=== PATIENT | female | born 1965 | race Caucasian/White ===

== ENCOUNTER → 2016-11-14 | Outpatient (CLI) | payer BC ==
[~2016-11-14] MED LIST: ADVIN50050 INH; ALBU1AER9 INH; ALL180 PO; ASPI1CHW12 PO; ATOR-26 PO; ATRIN INH; CYM/30 PO; DULO60CA44 PO; FURO-85 PO; HYDC25 PO; IBUP-1050 PO; MOME50SP5; OXYC-57 PO; PANT40TA PO; POTA-335 PO; SIMV20TA2 PO; SYMIN160 INH; VENTILIN INH; WARF5TAB7 PO
[2016-11-14 17:39] LABS: BASO % 0.4 %; BASO ABS # 0.03 K/uL (0-0.2); COMPLETE YES; EOS % 1.7 %; HEMATOCRIT 40.3 % (37-47); IG% 0.4 %; LYMPH % 9.2 %; LYMPH ABS # 0.74 K/uL (1.2-3.4); MEAN CELL VOLUME 85.9 fL (80-100); MEAN CORPUSCULAR HEMOGLOBIN 28.1 pg (25-34); MEAN CORPUSCULAR HGB CONC 32.8 g/dl (32-36); MONO % 12.5 %; NEUT % 75.8 %; PLATELET COUNT 317 K/uL (130-400); RED BLOOD COUNT 4.69 M/uL (4.2-5.4); WHITE BLOOD COUNT 8.01 K/uL (4.8-10.8)
[2016-11-14 17:48] LABS: ALT/SGPT 45 U/L (12-78); AST/SGOT 41 U/L (15-37); BLOOD UREA NITROGEN 13 mg/dl (7-18); BUN/CREATININE RATIO 14.9 (10-20); CALCIUM 8.2 mg/dl (8.5-10.1); CARBON DIOXIDE 29 mmol/L (21-32); CHLORIDE 103 mmol/L (98-107); CREATININE 0.87 mg/dl (0.60-1.20); GLUCOSE 97 mg/dl (70-99); POTASSIUM 3.9 mmol/L (3.5-5.1); SODIUM 139 mmol/L (136-145)
[2016-11-14 17:56] LABS: ALKALINE PHOSPHATASE 133 U/L (45-117); CHOLESTEROL 155 mg/dl (0-200); HDL CHOLESTEROL 51 mg/dl; LDL CHOLESTEROL CALCULATED 82 mg/dl; THYROID STIMULATING HORMONE 0.561 uIu/ml (0.300-4.500); TRIGLYCERIDES 110 mg/dl (0-150); VERY LOW DENSITY LIPOPROT CALC 22 mg/dl
[2016-11-14 18:18] LABS: ESTIMATED AVERAGE GLUCOSE 120 mg/dl; HA1C FLAG Normal (Normal)
== END | disposition home or self-care (01) ==
LOC: C.LABBFT 15:18
PROVIDERS: ATTEND Internal Medicine
DX: R73.01 Impaired fasting glucose (principal); R00.0 Tachycardia, unspecified

== ENCOUNTER → 2016-11-23 | Outpatient (CLI) | payer BC ==
--- NOTE | 2016-11-23 09:32 | DIAGNOSTIC IMAGING REPORT ---
CHEST 2 VIEWS ROUTINE CLINICAL HISTORY: J44.1 COPD with acute [id number] dyspnea COMPARISON STUDY: 05/13/2015 FINDINGS: Prior median sternotomy. Replacement. Diaphragms smooth. Lungs are clear. IMPRESSION: No acute process. Electronically signed by: Chris Larson M.D. 11/23/2016 9:30 AM Dictated Date/Time: 11/23/2016 9:29 AM
== END | disposition home or self-care (01) ==
LOC: C.RAD1850 09:09
PROVIDERS: ATTEND Nurse Practitioner
DX: J44.1 Chronic obstructive pulmonary disease with (acute) exacerbation (principal)

== ENCOUNTER → 2016-11-30 | Outpatient (CLI) | payer BC | END | disposition home or self-care (01) | LOC: C.LABBFT 13:18 | PROVIDERS: ATTEND Physician Assistant Medical | DX: E78.5 Hyperlipidemia, unspecified (principal) ==

== ENCOUNTER → 2017-01-11 | Outpatient (CLI) | payer BC ==
--- NOTE | 2017-01-11 13:52 | DIAGNOSTIC IMAGING REPORT ---
LUMBAR SPINE 5 VIEWS CLINICAL HISTORY: Chronic low back pain. FINDINGS: Five views of the lumbar spine are compared to study dated 11/10/2014. The skeletal structures are osteopenic. There is no radiographic evidence of fracture or malalignment. Vertebral body height and alignment are maintained throughout the lumbar spine. The transverse and spinous processes appear intact. There is no evidence of spondylolysis. Tiny anterior osteophytes are noted in the lower lumbar region. Mild facet arthropathy is observed. Mild degenerative disc space narrowing is seen at L4-L5 and L5-S1. The remaining disc spaces are normal. The visualized bony pelvis appears intact. Mild sclerotic change is noted in the sacroiliac joints. There is advanced atherosclerotic calcification of the abdominal aorta. Cholecystectomy clips are identified. There is a nonobstructed abdominal bowel gas pattern noting moderate colonic fecal retention. IMPRESSION: 1. No acute bony abnormality is seen involving the lumbosacral spine. 2. Osteopenia and mild spondylotic change as above. Dictated: 01/11/2017 1:42 PM Transcribed: 01/11/2017 1:52 PM YOHANA_[email or web address] Electronically signed by: Deepak Arvizu M.D. 01/11/2017 2:09 PM Dictated Date/Time: 01/11/2017 1:42 PM
== END | disposition home or self-care (01) ==
LOC: C.RAD1850 12:46
PROVIDERS: ATTEND Physician Assistant Medical
DX: M54.5 Low back pain (principal)

== ENCOUNTER → 2017-01-24 | Outpatient (CLI) | payer BC | END | disposition home or self-care (01) | LOC: C.LABBFT 12:46 | PROVIDERS: ATTEND Physician Assistant Medical | DX: M54.5 Low back pain (principal); M79.1 Myalgia ==

== ENCOUNTER → 2017-02-09 | Outpatient (CLI) | payer BC ==
--- NOTE | 2017-02-09 08:40 | DIAGNOSTIC IMAGING REPORT ---
ULTRASOUND EXAM AAA SCREEN CLINICAL HISTORY: I70.0 Abdominal aortic [id number] COMPARISON STUDY: No previous studies for comparison. FINDINGS: There is no evidence of abdominal aortic aneurysm. The maxillary diameter is 2 cm. There is no evidence of iliac artery aneurysm. There is mild elevation of the proximal iliac artery velocities. IMPRESSION: No evidence of abdominal aortic aneurysm. Electronically signed by: Wood Sherman M.D. 02/09/2017 8:39 AM Dictated Date/Time: 02/09/2017 8:37 AM
== END | disposition home or self-care (01) ==
LOC: C.ULTR 07:49
PROVIDERS: ATTEND Internal Medicine
DX: I70.0 Atherosclerosis of aorta (principal)

== ENCOUNTER → 2017-03-02 | Outpatient (CLI) | payer BC ==
[~2017-03-02] MED LIST changes: -CYM/30 PO
--- NOTE | 2017-03-02 14:24 | DIAGNOSTIC IMAGING REPORT ---
CT OF THE LUMBAR SPINE WITHOUT CONTRAST CLINICAL HISTORY: Low back pain. COMPARISON STUDY: Lumbar spine radiographs January 11, 2017. TECHNIQUE: Axial images of the lumbar spine were obtained without IV contrast. Sagittal and coronal reconstructions were viewed. FINDINGS: For purposes of numbering on this exam, the L5-S1 disc space is assigned to axial image [id number]. Vertebral body heights are maintained. There is no fracture or suspicious lesion by CT. The paravertebral soft tissues are unremarkable. There is moderate atherosclerotic plaque of the abdominal aorta without aneurysmal dilatation. The central canal and neural foramen are suboptimally assessed by CT. L1-L2: The central canal and neural foramen are patent. L2-L3: The central canal and neural foramen are patent. L3-L4: The central canal and neural foramen are patent. L4-L5: There is a mild disc bulge. There is mild narrowing of the central canal. The neural foramen are patent. There is moderate facet arthrosis. L5-S1: There is minimal disc bulge. Central canal is patent. There is moderate facet arthrosis. The neural foramen are patent. IMPRESSION: 1. No acute lumbar spine fracture. 2. Mild multilevel degenerative disc disease and moderate multilevel facet arthrosis. Suboptimal evaluation of the central canal and neural foramen given CT technique. Suspected mild central canal stenosis at L4-L5 due to disc bulge. No severe central canal or neural foraminal stenosis. No disc herniation identified by CT. Electronically signed by: Murali Nguyen M.D. 03/02/2017 2:22 PM Dictated Date/Time: 03/02/2017 2:15 PM
== END | disposition home or self-care (01) ==
LOC: C.CTS 13:11
PROVIDERS: ATTEND Physician Assistant Medical
DX: M54.5 Low back pain (principal)

== ENCOUNTER → 2017-05-07 | Outpatient (CLI) | payer BC ==
[~2017-05-07] MED LIST changes: -ADVIN50050 INH
== END | disposition home or self-care (01) ==
LOC: C.LABBC 09:51
PROVIDERS: ATTEND Physician Assistant
DX: R53.83 Other fatigue (principal)

== ENCOUNTER → 2017-05-24 | Outpatient (CLI) | payer BC ==
[2017-05-24 17:51] LABS: HEMATOCRIT 41.4 % (37-47); MEAN CELL VOLUME 87.3 fL (80-100); MEAN CORPUSCULAR HEMOGLOBIN 28.1 pg (25-34); MEAN CORPUSCULAR HGB CONC 32.1 g/dl (32-36); MEAN PLATELET VOLUME 10.2 fL (7.4-10.4); PLATELET COUNT 365 K/uL (130-400); RED BLOOD COUNT 4.74 M/uL (4.2-5.4); WHITE BLOOD COUNT 12.33 K/uL (4.8-10.8)
[2017-05-24 17:52] LABS: ALT/SGPT 50 U/L (12-78); AST/SGOT 29 U/L (15-37); BLOOD UREA NITROGEN 12 mg/dl (7-18); BUN/CREATININE RATIO 13.8 (10-20); CALCIUM 8.5 mg/dl (8.5-10.1); CARBON DIOXIDE 27 mmol/L (21-32); CHLORIDE 105 mmol/L (98-107); CREATININE 0.88 mg/dl (0.60-1.20); GLUCOSE 90 mg/dl (70-99); POTASSIUM 4.2 mmol/L (3.5-5.1); SODIUM 139 mmol/L (136-145)
[2017-05-24 17:55] LABS: ALB/GLOB RATIO 1.1 (0.9-2); ALKALINE PHOSPHATASE 129 U/L (45-117); CHOLESTEROL 150 mg/dl (0-200); CHOLESTEROL/HDL RATIO 2.5; HDL CHOLESTEROL 61 mg/dl; LDL CHOLESTEROL CALCULATED 74 mg/dl; TRIGLYCERIDES 73 mg/dl (0-150); VERY LOW DENSITY LIPOPROT CALC 15 mg/dl
== END | disposition home or self-care (01) ==
LOC: C.LABBFT 13:23
PROVIDERS: ATTEND Internal Medicine
DX: R73.01 Impaired fasting glucose (principal); E78.5 Hyperlipidemia, unspecified

== ENCOUNTER → 2017-05-29 | Outpatient (CLI) | payer BC ==
--- NOTE | 2017-05-30 06:17 | PAP/PSG TECHNICIAN REPORT ---
[facility] Transformation Manager Polysomnogram Report Study name: None Report date: 05/30/2017 Study date: 05/29/2017 Referring Physician: Errol Scanlon Name: KEN LINN Interpreting Physician: Billy Fisher M.D. Date of : 1965 Transformation Manager: Nicole White [facility]. Sex: Female Age: 52 StudyType: PSG Weight: 192 lbs Height: 52 years, Height 5' 3" BMI: 34.01 Medications: Vitamin D2, Duloxetine, Vitamin D 3, Potassium 20 Meq, Atorvastatin 80 mg, Furosemide, Warfarin Soidum 5 mg, Aspirin 81 mg, Pantoprazole Sodium 40 mg, Atrovent, Symbicory, Ventilin, Lexii, Flonase, Advil Patient History 52 yr. old female here for a diagnostic sleep study. Patient complains of poor sleep quality and quantity. She does not snore. Patient has a history of chronic lumbago, myofascial pain disorder, chronic anticoagulation therapy, diabetes, and EDS. ESS 02/10. Parameters Monitored NPSG: E1-M2, E2-M1, Fp1-M2, Fp2-M1, F3-M2, F4-M2, F4-M1, C3-M2, C4-M2, C4-M1, O1-M2, O2-M2, O2-M1, T3-M2, T4-M1, P3-M2, P4-M1, CHIN1, CHIN2, HR, EKG, Legs, PFLOW, SNOR, FLOW, CFLOW, Tidal Volume, THOR, ABDO, SpO2, PLTH, CPRESS, ETCO2 Wave, ETCO2, pH Sleep Architecture Sleep Stages Time at Lights Off 10:54:50 PM STAGES Time (min.) TST (%) Time at Lights On 5:39:20 AM Wake 95.0 -- Total Recording Time (TRT) 404.00 min. N1 19.0 6 Total Sleep Period (TSP) 334.0 min. N2 232.0 75 Total Sleep Time (TST) 309.0min. N3 58.0 19 Awake Time 95.0 min. REM 0.0 0 Wake after Sleep Onset 25.5 min. Sleep Efficiency (SE) 76 % Sleep Onset Latency (MATTHEW) 70.0 min. Number of Stage 1 Shifts None Awakenings 18 Stage Changes 82 Number of REM periods N/A REM 0.0 0 REM Latency NONE min. NREM 309.0 100 Body Position Analysis Supine Right Left Side Prone Vertical Total Sleep Time (min.) 233.0 76.5 74.0 150.50 0.0 6.4 Total Sleep Time (%) 51% 25% 24% 49 0% N/A% Total Sleep Time REM (min.) 0.0 0.0 0.0 None 0.0 0.0 Total Sleep Time NREM (min.) 158.5 76.5 74.0 None 0.0 0.0 Intermittent Wake (min.) 74.5 9.0 5.1 None 0.0 6.4 Total Sleep Period (%) 53% None None None None None Arousals Myoclonus (PLM) * Events Count Index Events Count Index Spontaneous 6 1 Events Awake (PLMW) 68 42.9 Respiratory 0 0.0 Events Asleep w/ Arousal (PLMA) 28 5.4 PLM 28 5 Events Asleep w/o Arousal (PLMS) 31 6.0 Snoring 3 1 Total Asleep 59 11.5 Total 37 7 Total 127 19 Respiratory Analysis * CA OA MA CH H RERA Total Count 0 0 0 0 0 0 0 Index 0.0 0.0 0.0 0 0.0 0 0.0 Mean Duration 0.0 0.0 0.0 0.00 0.0 0.0 0.0 Longest Duration 0.0 0.0 0.0 0.00 0.0 0.0 0.0 Respiratory Event Summary Total Supine ~Supine Right Left Prone REM NREM Apneas Count 0 0 0 0 0 N/A N/A 0 Index 0.0 0 0 0.0 0.0 N/A N/A 0 Hypopneas (4% Desat) Count 0 0 0 0 0 N/A N/A 0 Index 0.0 0.0 0 0.0 0.0 N/A N/A 0.0 Apneas & All Hypopneas Count 0 0 0 0 0 N/A N/A 0 Index 0.0 0 0 0 0 N/A N/A 0.0 Respiratory Events (Isotope Hydrologist+All Hyp+RERA) Count 0 0 0 0 0 N/A N/A 0 Index 0.0 0 0 0.0 0.0 N/A N/A 0.0 Respiratory Related Arousal Count 0 0 0 0 0 N/A N/A 0 Index 0.0 0 0 0 0 N/A N/A 0 Snoring Analysis Supine Right Left Prone REM NREM Total Snore duration 1.4 min Snores count 19 11 15 N/A N/A 45 45 Snore mean duration 1.9 Sec Snores index 7 9 12 N/A N/A 8.7 8.7 TST with snoring (%) 0.4% Desaturation Event Summary: Minimum %SpO2 Event Count Mean/Min/Max Duration(sec.) Desaturation Index % Time In Bed > 90 13 24.1 / 7.8 / 45.3 2.1 91.0 86 - 90 0 N/A 0.0 9.0 81 - 85 0 N/A 0.0 0.0 76 - 80 0 N/A 0.0 0.0 71 - 75 0 N/A 0.0 0.0 66 - 70 0 N/A 0.0 0.0 61 - 65 0 N/A 0.0 0.0 56 - 60 0 N/A 0.0 0.0 51 - 55 0 N/A 0.0 0.0 < 50 0 N/A 0.0 0.0 Total REM NREM Awake <50% 0.0 min. 0.0 min. 0.0 min. 0.0 min. 51 - 60% 0.0 min. 0.0 min. 0.0 min. 0.0 min. 61 - 70% 0.0 min. 0.0 min. 0.0 min. 0.0 min. 71 - 80% 0.0 min. 0.0 min. 0.0 min. 0.0 min. 81 - 90% 36.1 min. 0.0 min. 33.1 min. 3.0 min. 91 - 100% 365.7 min. 0.0 min. 275.2 min. 90.6 min. Average 92 0 92 94 Minimum SpO2 88 N/A 88 89 Desaturation Event Index 1.9 0.0 0.8 5.7 # Desat. Events below 89% N/A N/A N/A N/A Time(%) with Saturation below 89% 0.1 0.0 0.1 0.0 Time(min.) with Saturation below 89% 0.3 0.0 0.3 0.0 Time (mins) REM (mins) NREM (mins) % of TST SpO2 Below 90% 2 N/A N2 3.3 SpO2 Below 88% 0 0 0 0 Heart Rate Analysis Min (bpm) Max (bpm) Average (bpm) Awake 80 110 90 NREM 81 95 89 REM N/A N/A N/A Overall 81 95 89 Supplemental O2 Values Minimum O2 level: None Value Start Time End Time Transformation Manager Comments Mrs. Linn slept in the right, left, and positions. PVCs and PLMs noted. No bruxism noted. Snoring was noted and scored as a 1 on a scale of 0 through 5. (0=no snoring, 5=snoring loud enough to be heard through a closed door or down the marsh[address] way) Mrs. Linn did not wake to use the restroom during the night. Mrs. Linn stated, I was very restless. The final report will be interpreted and signed by a sleep physician. The completed physician report will then be placed in the patient medical record. Therapy (cm H2O) 0 TIB (min.) 404.0 TST (min.) 309.0 Sleep Onset (min.) 70.0 REM Onset From Sleep (min.) NONE Sleep Efficiency % 76 Wakefulness (%) 23 Wakefulness (min.) 95.0 NREM 1 (%) 6 NREM 1 (min.) 19.0 NREM 2 (%) 75 NREM 2 (min.) 232.0 NREM 3 (%) 19 NREM 3 (min.) 58.0 REM (%) 0 REM (min.) 0.0 # Arousals 37 Arousal Index 7 # Snore 45 Snore Index 8.7 AHI 0.0 AHI Supine 0 AHI Non-Supine 0 NREM AHI 0.0 REM AHI N/A RDI 0.0 # Obstructive Apnea 0 # Central Apnea 0 # Mixed Apnea 0 # Hypopneas 0 RERAs 0 Total Respiratory Events 0 Time Below SpO2 89% (min.) 0.3 Mean NREM SpO2 (%) 92 Mean REM SpO2 (%) N/A Mean Sleep SpO2 (%) 92 Min NREM SpO2 (%) 88 Min REM SpO2 (%) N/A Position Supine (min.) 233.0 Position Non-supine (min.) 150.5 LM Index Sleep 11.5 LM Index NREM 11.5 LM Index REM N/A Mean Heart Rate (bpm) 89 Min Heart Rate (bpm) 81
--- NOTE | 2017-05-30 16:45 | POLYSOMNOGRAPH REPORT ---
CLINICAL DATA: A 52-year-old female with BMI of 34 referred by Errol Scanlon for fatigue, insomnia and obesity. She does not snore. She has chronic back pain, myofascial pain disorder, and multiple other problems. Her Winfield sleepiness score is 6/24. SLEEP ARCHITECTURE: Total sleep period was 334 minutes. Total sleep time was 309 minutes all non-REM sleep. Sleep onset latency was delayed at 70 minutes. REM was not achieved. Sleep efficiency was 76%. Wake after sleep onset was 25.5 minutes. Sleep consisted of stage N1 6%, stage N2 75%, and stage N3 19%. AROUSAL DATA: Thirty-seven arousals recorded for an index of 7 per hour, 28 were due to PLMs. PLM DATA: Fifty-nine limb movements during sleep were noted for an index of 11.5 per hour with arousal index of 5.4 per hour. RESPIRATORY DATA: There was no evidence of sleep apnea. The AHI was 0. There were no respiratory events recorded. OXIMETRY DATA: No significant hypoxemia was seen. Oxygen sunday was 88%. Mean saturation was 92%. EKG: Heart rates ranged from 81 to 95 beats per minute. PVCs were noted. INLAYER'S COMMENTS: The patient slept in the right, left, and supine positions. Snoring was mild, rated 1 on a scale of 1-5. The patient was quite restless during the night. IMPRESSION: No evidence of clinically significant sleep apnea/hypopnea, nocturnal hypoxemia or abnormal limb movements during sleep. RECOMMENDATIONS: The patient should continue to practice good sleep hygiene and continue to follow up with her pain management physicians. KIMMY
== END | disposition home or self-care (01) ==
LOC: C.NEUR 21:00
PROVIDERS: ATTEND Internal Medicine
DX: R53.83 Other fatigue (principal); G47.00 Insomnia, unspecified; E66.9 Obesity, unspecified

== ENCOUNTER 2017-09-29 23:05 | Inpatient (IN) | payer BC ==
[~2017-09-29] VITALS: Ht 160 cm; Wt 89.8 kg
[~2017-09-29 23:05] MED LIST changes: +CYM/30 PO
[2017-09-29] MEDS ORDERED: METHYLPREDNISOLONE 125 MG VIAL IV STA (23:22)
[2017-09-29] MEDS ORDERED: ALBUT/IPRATROP 3MG/0.5MG NEB 3 ML VIAL INH ONE (23:30)
[2017-09-29 23:42] VITALS: PULSE 110; O2SAT 98
[2017-09-29 23:50] LABS: BASO % 0.2 %; BASO ABS # 0.03 K/uL (0-0.2); EOS % 0.3 %; EOS ABS # 0.04 K/uL (0-0.5); HEMATOCRIT 40.2 % (37-47); HEMOGLOBIN 12.9 g/dL (12.0-16.0); IG# 0.09 K/uL (0.00-0.02); LYMPH % 13.5 %; MEAN CELL VOLUME 88.5 fL (80-100); MEAN CORPUSCULAR HEMOGLOBIN 28.4 pg (25-34); MEAN CORPUSCULAR HGB CONC 32.1 g/dl (32-36); MEAN PLATELET VOLUME 9.9 fL (7.4-10.4); MONO % 12.3 %; MONO ABS # 1.54 K/uL (0.11-0.59); NEUT ABS # 9.17 K/uL (1.4-6.5); PLATELET COUNT 292 K/uL (130-400); RED CELL DISTRIBUTION WIDTH CV 15.5 % (11.5-14.5); RED CELL DISTRIBUTION WIDTH SD 49.9 fL (36.4-46.3); WHITE BLOOD COUNT 12.57 K/uL (4.8-10.8)
--- NOTE | 2017-09-29 23:56 | EMERGENCY ROOM VISIT NOTE ---
History Report prepared by Robyn: Jorge Horner Under the Supervision of: Dr. Nando Bolivar M.D. First contact with patient: 23:17 Chief Complaint: SHORTNESS OF BREATH Stated Complaint: TROUBLE BREATHING, LIGHT HEADED, FELL OVER History of Present Illness The patient is a 52 year old female who presents to the Emergency Room with complaints of worsening shortness of breath that began 2 days ago. Patient has associated symptoms of a runny nose, headache, and body aches. She adds that the symptoms are exacerbated while lying down. She states she used her inhaler and breathing treatment to try and relieve the symptoms. She denies any fevers or chest pain. Patient has a history of COPD and valve replacement. She states that "everyone around her has been sick" recently. She denies getting a flu shot this year. Patient states that the symptoms are worse than similar symptoms she had 2 years ago. She states the symptoms are not related to a recent fall. She states that she has used a nebulizer before to relieve similar symptoms. Source of History: patient Onset: 2 days ago Timing: worsening Modifying Factors (Worsening): other (Lying down) Associated Symptoms: + headache, No fevers, No chest pain Note: Patient has runny nose and body aches. Review of Systems See HPI for pertinent positives & negatives. A total of 10 systems reviewed and were otherwise negative. Past Medical & Surgical Medical Problems: (1) Acute respiratory failure with hypoxia (2) Asthma (3) CAD (coronary artery disease) (4) Depressive disorder (5) Diabetes mellitus (6) Gastroesophageal reflux (7) Hypercholesterolemia (8) Hypertension (9) Osteoarthritis Surgical Problems: (1) H/O breast biopsy (2) History of cholecystectomy (3) History of mitral valve replacement with mechanical valve (4) S/P balloon mitral valvuloplasty Family History Diabetes mellitus Heart disease Social History Smoking Status: Former Smoker Alcohol Use: none Marital Status: Housing Status: lives with significant other Occupation Status: employed Current/Historical Medications Scheduled Aspirin (Aspirin 81 Low Dose), 81 MG PO DAILY Atorvastatin (Lipitor), 80 MG PO DAILY Budesonide/Formoterol Fumarate (Symbicort 160/4.5 Inhaler ), 2 PUFFS INH BID Duloxetine HCl (Cymbalta), 30 MG PO QAM Duloxetine Hcl (Cymbalta), 60 MG PO HS Fexofenadine Hcl (Lexii), 180 MG PO DAILY Furosemide (Furosemide), 40 MG PO DAILY Gabapentin (Bulk) (Gabapentin), 1 DOSE PO TID Mometasone Furoate (Nasal) (Mometasone Furoate), 2 SPRY DOE BID Nortriptyline HCl (Nortriptyline HCl), 75 MG PO HS Pantoprazole (Protonix), 40 MG PO DAILY Potassium Chloride Microencaps (Potassium Chloride Er), 20 MEQ PO DAILY Potassium Ext Rel (Klor-Con), 20 MEQ PO DAILY Ranitidine (Zantac), 150 MG PO BID Tiotropium Cidra (Spiriva Respimat), 2 PUFF INH DAILY Warfarin Sod (Jantoven), 5 MG PO DAILY Scheduled PRN Albuterol Hfa (Ventolin Hfa), 2 PUFFS INH Q4 PRN for SOB/Wheezing Ibuprofen (Advil), 200-600 MG PO Q4 PRN for Pain or Fever Ipratropium Cidra (Atrovent 0.02% Soln), 2.5 ML NEB QID PRN for SOB/Wheezing Lorazepam (Ativan), 0.5 MG PO DAILY PRN for Anxiety Allergies Coded Allergies: No Known Allergies (Unverified , 09/30/17) Physical Exam Vital Signs Date Time Temp Pulse Resp B/P (MAP) Pulse Ox O2 Delivery O2 Flow Rate FiO2 09/30/17 03:40 37.1 09/30/17 03:17 108 09/30/17 03:15 107 15 96 09/30/17 03:01 114/63 09/30/17 03:00 108 15 96 09/30/17 02:45 112 16 97 09/30/17 02:31 107/59 09/30/17 02:30 112 14 97 09/30/17 02:15 118 17 96 09/30/17 02:01 101/56 09/30/17 02:00 116 20 97 09/30/17 01:45 115 19 95 09/30/17 01:40 112 17 97 09/30/17 01:33 88 Nasal Cannula 2.0 09/30/17 01:31 101/62 09/30/17 01:25 116 16 88 09/30/17 01:10 118 23 90 09/30/17 01:01 109/66 09/30/17 00:55 114 14 100 09/30/17 00:50 118 21 100 09/30/17 00:35 119 20 09/30/17 00:31 123/71 09/30/17 00:20 111 17 09/30/17 00:05 105 19 09/30/17 00:01 121/64 09/29/17 23:53 125/69 09/29/17 23:50 105 21 09/29/17 23:42 110 20 98 Nasal Cannula 4.0 09/29/17 23:35 109 25 09/29/17 23:27 Nasal Cannula 3.0 09/29/17 23:26 88 Room Air 09/29/17 23:25 109 09/29/17 23:24 Room Air 88 09/29/17 23:22 108/77 09/29/17 23:13 37.5 112 30 122/68 92 Room Air Physical Exam GENERAL: Patient is acutely ill appearing and in moderate distress. HEENT: No acute trauma, normocephalic atraumatic, mucous membranes moist, no nasal congestion, no scleral icterus. NECK: No stridor, no adenopathy, no meningismus, trachea is midline. LUNGS: Very tight lung sounds, dyspneic and typnic with pursed lip breathing, prolong expiratory time with diffuse wheezing. HEART: Tachycardic rate and rhythm. No murmurs, rubs, gallops appreciated. ABDOMEN: Soft, nontender, bowel sounds positive, no masses appreciated, no peritonitis. BACK: No midline tenderness, no CVA tenderness EXTREMITIES: Normal motion all extremities, no cyanosis, no edema. NEUROLOGIC: Alert and oriented, no acute motor or sensory deficits, no focal weakness, cranial nerves grossly intact. SKIN: No rash, no jaundice, no diaphoresis. Medical Decision & Procedures ER Provider Diagnostic Interpretation: Radiology results and stated below were interpreted by me: Chest X-Ray: Congestion in bilateral lower lobes versus Atelectasis, no definitive lumbar infiltrate. Laboratory Results 09/29/17 23:30 Red Blood Count 4.54, Mean Corpuscular Volume 88.5, Mean Corpuscular Hemoglobin 28.4, Mean Corpuscular Hemoglobin Concent 32.1, Mean Platelet Volume 9.9, Neutrophils (%) (Auto) 73.0, Lymphocytes (%) (Auto) 13.5, Monocytes (%) (Auto) 12.3, Eosinophils (%) (Auto) 0.3, Basophils (%) (Auto) 0.2, Neutrophils # (Auto ) 9.17, Lymphocytes # (Auto) 1.70, Monocytes # (Auto) 1.54, Eosinophils # (Auto ) 0.04, Basophils # (Auto) 0.03 09/29/17 23:30 Test 09/29/17 00:00 09/29/17 23:30 Influenza Type A Antigen Neg for Influ A (NEG) Influenza Type B Antigen Neg for Influ B (NEG) White Blood Count 12.57 K/uL (4.8-10.8) Red Blood Count 4.54 M/uL (4.2-5.4) Hemoglobin 12.9 g/dL (12.0-16.0) Hematocrit 40.2 % (37-47) Mean Corpuscular Volume 88.5 fL (80-100) Mean Corpuscular Hemoglobin 28.4 pg (25-34) Mean Corpuscular Hemoglobin Concent 32.1 g/dl (32-36) Platelet Count 292 K/uL (130-400) Mean Platelet Volume 9.9 fL (7.4-10.4) Neutrophils (%) (Auto) 73.0 % Lymphocytes (%) (Auto) 13.5 % Monocytes (%) (Auto) 12.3 % Eosinophils (%) (Auto) 0.3 % Basophils (%) (Auto) 0.2 % Neutrophils # (Auto) 9.17 K/uL (1.4-6.5) Lymphocytes # (Auto) 1.70 K/uL (1.2-3.4) Monocytes # (Auto) 1.54 K/uL (0.11-0.59) Eosinophils # (Auto) 0.04 K/uL (0-0.5) Basophils # (Auto) 0.03 K/uL (0-0.2) RDW Standard Deviation 49.9 fL (36.4-46.3) RDW Coefficient of Variation 15.5 % (11.5-14.5) Immature Granulocyte % (Auto) 0.7 % Immature Granulocyte # (Auto) 0.09 K/uL (0.00-0.02) Prothrombin Time 30.4 SECONDS (9.0-12.0) Prothromb Time International Ratio 3.0 (0.9-1.1) Activated Partial Thromboplast Time 49.7 SECONDS (21.0-31.0) Partial Thromboplastin Ratio 1.9 Anion Gap 7.0 mmol/L (3-11) Est Creatinine Clear Calc Drug Dose 68.2 ml/min Estimated GFR () 73.6 Estimated GFR (Non- 63.5 BUN/Creatinine Ratio 14.5 (10-20) Calcium Level 8.6 mg/dl (8.5-10.1) Troponin I < 0.015 ng/ml (0-0.045) Chemistry Specimen Hemolysis Laboratory results as reviewed by me. Medications Administered Medications (Trade) Dose Ordered Sig/Ramakrishna Route Start Time Stop Time Status Last Admin Dose Admin Albuterol/ Ipratropium (Duoneb) 12 ml ONE ONCE INH 09/29/17 23:30 09/29/17 23:31 DC 09/29/17 23:38 12 ML Methylprednisolone Sodium Succinate (Solu-Medrol IV) 125 mg NOW STAT IV 09/29/17 23:22 09/29/17 23:23 DC 09/29/17 23:54 125 MG Acetaminophen (Tylenol Tab) 1,000 mg NOW STAT PO 09/30/17 01:00 09/30/17 01:02 DC 09/30/17 01:18 1,000 MG Lorazepam (Ativan Inj) 0.5 mg NOW STAT IV 09/30/17 01:00 09/30/17 01:02 DC 09/30/17 01:17 0.5 MG Ibuprofen (Motrin Tab) 600 mg NOW STAT PO 09/30/17 01:00 09/30/17 01:02 DC 09/30/17 01:17 600 MG Levofloxacin (Levaquin / D5W) 750 mg NOW STAT IV 09/30/17 01:49 09/30/17 01:50 DC 09/30/17 01:58 750 MG ECG Indication: SOB/dyspnea Rate (beats per minute): 111 Rhythm: sinus tachycardia Findings: RBBB, no acute ischemic change, no ectopy Change: EKG: Electrocardiogram per my interpretation. ED Course 2318: The patient was evaluated in room A11. A complete history and physical exam was performed. 2321: Solu-Medrol IV 125mg IV 2330: Duoneb 12ml INH 2357: Patient states she feels her breathing has improved, however her exam in not any different. 0036: Patient is improving. She has minimal wheezing, not significantly dyspneic , and improved lung sounds. 0057: Patient states that she is feeling much better. 0100: Motrin Tab 600mg PO, Ativan Inj 0.5mg IV, Tylenol Tab 1000mg 0123: Patient's lungs have improved. She states she is anxious and has a headache. 0149: Patient is hypoxic with a mild increase in wheezing. She is agreeable to staying in the hospital. 0205: Upon reevaluation, the patient will be further evaluated. I spoke with Dr. Krishnan. Discussed results and treatment plan with the patient. She verbalized understanding and agreement with the treatment plan. The patient will be evaluated for further management. Medical Decision Differential: Infectious, Reactive Airway Disease, Pneumonia, Pneumothorax, COPD , CHF, ACS, Pulmonary Embolism, MSK, GI, Dissection, amongst other etiologies entertained. 52 yr old female with significant respiratory distress on arrival vastly improved with hour neb but having some persistent hypoxia post. Associated body aches/fatigue sounds viral but she does have negative flu currently. No evidence ACS, PE (on Coumadin), nor CHF. Did attempt to give some time for O2 to recover but remains hypoxic requiring NC O2. Will given IV levaquin for bronchitis, though I am not convinced this is pneumonia. Medication Reconcilliation Current Medication List: was personally reviewed by me Blood Pressure Screening Patient's blood pressure: Normal blood pressure Blood pressure disposition: Did not require urgent referral Impression Primary Impression: COPD exacerbation Additional Impression: Hypoxia Scribe Attestation The scribe's documentation has been prepared under my direction and personally reviewed by me in its entirety. I confirm that the note above accurately reflects all work, treatment, procedures, and medical decision making performed by me. Departure Information Dispostion Being Evaluated By Hospitalist Referrals Garth Vasquez M.D. (PCP) Forms HOME CARE DOCUMENTATION FORM, IMPORTANT VISIT INFORMATION Patient Instructions [facility] Problem Qualifiers
[2017-09-30] VITALS (11 sets, daily range): BP systolic 97–130; BP diastolic 66–82; PULSE 75–115; TEMP 36.6–37.1; O2SAT 93–97; Ht 160 cm; Wt 89.8 kg
[2017-09-30] MEDS ORDERED: VNTHFA/IN INH (00:06)
[2017-09-30] MEDS ORDERED: FEXO1TAB46 PO (00:06)
[2017-09-30] MEDS ORDERED: POTA20TA16 PO (00:07)
[2017-09-30] MEDS ORDERED: LSX40 PO (00:09)
[2017-09-30] MEDS ORDERED: ATRINSX NEB (00:14)
[2017-09-30] MEDS ORDERED: NRT75 PO (00:14)
[2017-09-30] MEDS ORDERED: GABA10PO PO (00:14)
[2017-09-30] MEDS ORDERED: POTA20TA13 PO (00:14)
[2017-09-30] MEDS ORDERED: MOME6000 NAE (00:16)
[2017-09-30] MEDS ORDERED: LORA-741 PO (00:22)
[2017-09-30] MEDS ORDERED: RANI150T85 PO (00:24)
[2017-09-30] MEDS ORDERED: TIOT1AER2 INH (00:24)
[2017-09-30 00:44] LABS: PTT PATIENT 49.7 SECONDS (21.0-31.0)
[2017-09-30 00:50] LABS: BLOOD UREA NITROGEN 15 mg/dl (7-18); CALCIUM 8.6 mg/dl (8.5-10.1); CARBON DIOXIDE 29 mmol/L (21-32); CREATININE 1.01 mg/dl (0.60-1.20); GLUCOSE 112 mg/dl (70-99); POTASSIUM 4.2 mmol/L (3.5-5.1); SODIUM 138 mmol/L (136-145)
[2017-09-30] MEDS ORDERED: LORAZEPAM 2 MG/ML 1 ML VIAL IV STA (01:00)
[2017-09-30] MEDS ORDERED: IBUPROFEN 600 MG TAB PO STA (01:00)
[2017-09-30] MEDS ORDERED: ACETAMINOPHEN 500 MG TAB PO STA (01:00)
[2017-09-30 01:17] LABS: INFLUENZA B ANTIGEN Neg for Influ B (NEG)
[2017-09-30] MEDS ORDERED: LEVAQUIN 750MG / 150ML D5W IV STA (01:49)
[2017-09-30] MEDS ORDERED: POLYETHYLENE (MIRALAX) 17 GM PACK PO PRN (03:30)
[2017-09-30] MEDS ORDERED: LORAZEPAM 0.5 MG TAB PO PRN (03:30)
[2017-09-30] MEDS ORDERED: ZOLPIDEM TARTRATE 5 MG TAB PO PRN (03:30)
[2017-09-30] MEDS ORDERED: NITROGLYCERIN 0.4 MG SL PER TAB CHARGE SL PRN (03:30)
[2017-09-30] MEDS ORDERED: ALUMINUM/MAGNESIUM/SIMETH (MAALOX MAX) 30 ML UDC PO PRN (03:30)
[2017-09-30] MEDS ORDERED: MAGNESIUM HYDROXIDE SUSP 30 ML UDC PO PRN (03:30)
--- NOTE | 2017-09-30 04:43 | History and Physical ---
History & Physical Date & Time of Service: Sep 30, 2017 at 04:33 Chief Complaint: Trouble Breathing, Light Headed, Fell Over Primary Care Physician: Garth Vasquez M.D. History of Present Illness Source: patient, family, hospital records The patient is a 52-year-old female who presents to the emergency department with worsening shortness of breath, generalized body aches, headache and runny nose that began 2 days prior to arrival at the insistence of her daughter who is in attendance. She is exposed to 2 young grandchildren, and other family members who have been sick. She has a known history of COPD and has been using her nebulizers at home. She did not get a flu shot this year. Past Medical/Surgical History Surgical Problems: (1) S/P balloon mitral valvuloplasty Status: Resolved Family History Diabetes mellitus Heart disease Social History Smoking Status: Never Smoker Smokeless Tobacco Use: No Alcohol Use: none Drug Use: none Marital Status: Housing status: lives with family Occupational Status: employed Immunizations History of Influenza Vaccine: Unknown History of Tetanus Vaccine?: Unknown History of Pneumococcal: Unknown History of Hepatitis B Vaccine: Unknown Multi-Drug Resistant Organisms History of MDRO: No Allergies Coded Allergies: No Known Allergies (Unverified , 09/30/17) Home Medications Scheduled Aspirin (Aspirin 81 Low Dose), 81 MG PO DAILY Atorvastatin (Lipitor), 80 MG PO DAILY Budesonide/Formoterol Fumarate (Symbicort 160/4.5 Inhaler ), 2 PUFFS INH BID Duloxetine HCl (Cymbalta), 30 MG PO QAM Duloxetine Hcl (Cymbalta), 60 MG PO HS Fexofenadine Hcl (Lexii), 180 MG PO DAILY Furosemide (Furosemide), 40 MG PO DAILY Gabapentin (Bulk) (Gabapentin), 1 DOSE PO TID Mometasone Furoate (Nasal) (Mometasone Furoate), 2 SPRY DOE BID Nortriptyline HCl (Nortriptyline HCl), 75 MG PO HS Pantoprazole (Protonix), 40 MG PO DAILY Potassium Chloride Microencaps (Potassium Chloride Er), 20 MEQ PO DAILY Potassium Ext Rel (Klor-Con), 20 MEQ PO DAILY Ranitidine (Zantac), 150 MG PO BID Tiotropium [place] (Spiriva Respimat), 2 PUFF INH DAILY Warfarin Sod (Jantoven), 5 MG PO DAILY Scheduled PRN Albuterol Hfa (Ventolin Hfa), 2 PUFFS INH Q4 PRN for SOB/Wheezing Ibuprofen (Advil), 200-600 MG PO Q4 PRN for Pain or Fever Ipratropium [place] (Atrovent 0.02% Soln), 2.5 ML NEB QID PRN for SOB/Wheezing Lorazepam (Ativan), 0.5 MG PO DAILY PRN for Anxiety Review of Systems The patient denies chest pain, palpitations, lower extremity swelling, sore throat, fevers, chills, sweats, weight change, nausea, vomiting, diarrhea , constipation, abdominal pain, pelvic pain, blood in urine or stool, dysuria, urinary frequency or urgency, lightheadedness , dizziness, memory loss, loss of consciousness, rash, abnormal bruising or bleeding, imbalance, focal or generalized weakness, numbness or tingling in arms or legs, back or neck pain, or night sweats. The review of systems is otherwise negative other than for that already noted above, and at least 10 systems have been reviewed. Physical Exam Vital Signs Date Time Temp Pulse Resp B/P (MAP) Pulse Ox O2 Delivery O2 Flow Rate FiO2 09/30/17 04:06 37.1 109 20 97/66 97 Nasal Cannula 3.0 09/30/17 03:40 37.1 09/30/17 03:17 108 09/30/17 03:15 107 15 96 09/30/17 03:01 114/63 09/30/17 03:00 108 15 96 09/30/17 02:45 112 16 97 09/30/17 02:31 107/59 09/30/17 02:30 112 14 97 09/30/17 02:15 118 17 96 09/30/17 02:01 101/56 09/30/17 02:00 116 20 97 09/30/17 01:45 115 19 95 09/30/17 01:40 112 17 97 09/30/17 01:33 88 Nasal Cannula 2.0 09/30/17 01:31 101/62 09/30/17 01:25 116 16 88 09/30/17 01:10 118 23 90 09/30/17 01:01 109/66 09/30/17 00:55 114 14 100 09/30/17 00:50 118 21 100 09/30/17 00:35 119 20 09/30/17 00:31 123/71 09/30/17 00:20 111 17 09/30/17 00:05 105 19 09/30/17 00:01 121/64 09/29/17 23:53 125/69 09/29/17 23:50 105 21 09/29/17 23:42 110 20 98 Nasal Cannula 4.0 09/29/17 23:35 109 25 09/29/17 23:27 Nasal Cannula 3.0 09/29/17 23:26 88 Room Air 09/29/17 23:25 109 09/29/17 23:24 Room Air 88 09/29/17 23:22 108/77 09/29/17 23:13 37.5 112 30 122/68 92 Room Air The patient is awake, alert and oriented 3, well developed and well nourished, normocephalic and atraumatic, lying in bed and in no acute distress. HEENT--PERRL, EOMI, mucous membranes and oropharynx mildly dry. Neck--supple. No JVD. No bruits. Thyroid normal, trachea midline, no adenopathy. Heart--normal S1 and S2. No murmurs, rubs or gallops. Lungs--few coarse breath sounds with wheezing bilaterally, no respiratory distress, no accessory muscle use. Abdomen--normal bowel sounds and soft. Nontender. Nondistended, no hernias or masses, no organomegaly. Extremities--no cyanosis or clubbing. No edema. There are good distal pulses b/ l. Dermatologic--normal skin turgor, normal color, no abnormal lymph nodes, no rash. Neurologic--cranial nerves II through XII grossly intact. Rheumatologic--normal range of motion. Psychiatric--normal affect. Diagnostics Laboratory Results Results Past 24 Hours Test 09/29/17 23:30 09/30/17 04:28 Range/Units White Blood Count 12.57 4.8-10.8 K/uL Red Blood Count 4.54 4.2-5.4 M/uL Hemoglobin 12.9 12.0-16.0 g/dL Hematocrit 40.2 37-47 % Mean Corpuscular Volume 88.5 80-100 fL Mean Corpuscular Hemoglobin 28.4 25-34 pg Mean Corpuscular Hemoglobin Concent 32.1 32-36 g/dl Platelet Count 292 130-400 K/uL Mean Platelet Volume 9.9 7.4-10.4 fL Neutrophils (%) (Auto) 73.0 % Lymphocytes (%) (Auto) 13.5 % Monocytes (%) (Auto) 12.3 % Eosinophils (%) (Auto) 0.3 % Basophils (%) (Auto) 0.2 % Neutrophils # (Auto) 9.17 1.4-6.5 K/uL Lymphocytes # (Auto) 1.70 1.2-3.4 K/uL Monocytes # (Auto) 1.54 0.11-0.59 K/uL Eosinophils # (Auto) 0.04 0-0.5 K/uL Basophils # (Auto) 0.03 0-0.2 K/uL RDW Standard Deviation 49.9 36.4-46.3 fL RDW Coefficient of Variation 15.5 11.5-14.5 % Immature Granulocyte % (Auto) 0.7 % Immature Granulocyte # (Auto) 0.09 0.00-0.02 K/uL Prothrombin Time 30.4 9.0-12.0 SECONDS Prothromb Time International Ratio 3.0 0.9-1.1 Activated Partial Thromboplast Time 49.7 21.0-31.0 SECONDS Partial Thromboplastin Ratio 1.9 Sodium Level 138 136-145 mmol/L Potassium Level 4.2 3.5-5.1 mmol/L Chloride Level 102 98-107 mmol/L Carbon Dioxide Level 29 21-32 mmol/L Anion Gap 7.0 3-11 mmol/L Blood Urea Nitrogen 15 7-18 mg/dl Creatinine 1.01 0.60-1.20 mg/dl Est Creatinine Clear Calc Drug Dose 68.2 ml/min Estimated GFR () 73.6 Estimated GFR (Non- 63.5 BUN/Creatinine Ratio 14.5 10-20 Random Glucose 112 70-99 mg/dl Calcium Level 8.6 8.5-10.1 mg/dl Troponin I < 0.015 0-0.045 ng/ml Chemistry Specimen Hemolysis Impression Assessment and Plan Acute respiratory failure with hypoxia/severe asthmatic bronchitis-- Ceftriaxone 1 g IV daily Levofloxacin 500 mg IV every 24 hours Solu-Medrol 60 mg IV every 6 hours Guaifenesin extended release 600 mg by mouth twice a day Xopenex/Atovent nebs q6hwa and q2h prn Nasal cannula 2 L of oxygen titrating to keep pulse ox greater than or equal to 92%. Sputum Gram stain and culture. Hold Symbicort, Spiriva and albuterol HFA. CAD/hypertension/mitral valve replacement with mechanical valve/status post balloon mitral valvuloplasty-- Continue aspirin 81 mg daily, furosemide 40 mg daily, potassium chloride ER 20 mEq daily and warfarin sodium daily Daily CBC with differential, BMP, magnesium and PT/INR. Hyperlipidemia-- Continue atorvastatin 80 mg daily GERD-- Continue pantoprazole 40 mg daily and ranitidine 150 mg p.o. twice daily. Depression-- Continue duloxetine 30 mg in the morning and 60 mg at bedtime, gabapentin 3 times daily and nortriptyline 75 mg at bedtime Level of Care Telemetry Advanced Directives Existing Advance Directive: No Existing Living Will: No Existing Power of Rug Clipper: No Resuscitation Status FULL RESUSCITATION VTE Prophylaxis VTE Risk Assessment Done? Y/N: Yes Risk Level: Moderate Given or contraindicated: Warfarin (Coumadin) Social Service Consult None Apply
[2017-09-30] MEDS ORDERED: CEFTRIAXONE SOD INJ 1 GM in DEXTROSE 5% ADD-VANTAGE 50ML 50 ML IV SCH (05:00)
[2017-09-30] MEDS: METHYLPREDNISOLONE IV 60 MG in SYRINGE 0 ML IV SCH ×3 (05:29→20:56)
--- NOTE | 2017-09-30 06:00 | DIAGNOSTIC IMAGING REPORT ---
CHEST ONE VIEW PORTABLE CLINICAL HISTORY: Chest Pain dyspnea COMPARISON STUDY: 11/23/2016 FINDINGS: Operative changes of a prior median sternotomy. Diaphragms smooth. Bony vasculature is prominent. This would be indicative of early congestive failure. IMPRESSION: Mild/early congestive heart failure. The above report was generated using voice recognition software. It may contain grammatical, syntax or spelling errors. Electronically signed by: Chris Lasron M.D. 09/30/2017 5:58 AM Dictated Date/Time: 09/30/2017 5:58 AM
[2017-09-30] MEDS: LEVALBUTEROL 1.25MG/0.5ML NEB INH SCH ×3 (07:12→20:25)
[2017-09-30] MEDS: IPRATROPIUM BROMIDE NEB SOLN 0.02% 2.5 ML VIAL INH SCH ×3 (07:12→20:25)
[2017-09-30] MEDS: GABAPENTIN~ORDER AWAITING ACTION SCH ×2 (08:00→15:36)
[2017-09-30] MEDS: RANITIDINE HCL 150 MG TAB PO SCH ×2 (08:39→20:52)
[2017-09-30] MEDS: DULOXETINE (CYMBALTA) 30 MG CAP PO SCH ×2 (08:39→22:29)
[2017-09-30] MEDS: ASPIRIN 81 MG CHEW PO SCH (08:39)
[2017-09-30] MEDS: GUAIFENESIN 600 MG TABCR PO SCH ×2 (08:39→20:51)
[2017-09-30] MEDS: PANTOprazole SOD 40 MG TAB PO SCH (08:39)
[2017-09-30] MEDS: FUROSEMIDE 40 MG TAB PO SCH (08:39)
[2017-09-30] MEDS: POTASSIUM CHLORIDE 20 MEQ TABCR PO SCH (08:39)
[2017-09-30] MEDS: FLUTICASONE PROPIONATE NA SPR 16 GM BTL SCH ×2 (08:40→20:50)
[2017-09-30] MEDS ORDERED: LEVALBUTEROL/IPRATROPIUM NEB INH SCH (09:00)
[2017-09-30] MEDS ORDERED: FEXOFENADINE HCL 180 MG TAB PO SCH (09:00)
[2017-09-30] MEDS ORDERED: NURSING VERBAL MED ORDER ONE (09:00)
[2017-09-30] MEDS ORDERED: ATORVASTATIN 40 MG TAB PO SCH (09:00)
[2017-09-30 11:13] LABS: INFLUENZA A PCR Neg for Influ A (NEG); INFLUENZA B PCR Neg for Influ B (NEG)
[2017-09-30 13:02] LABS: BASO % 0.1 %; BASO ABS # 0.01 K/uL (0-0.2); HEMATOCRIT 36.8 % (37-47); HEMOGLOBIN 11.8 g/dL (12.0-16.0); IG# 0.07 K/uL (0.00-0.02); LYMPH % 6.1 %; LYMPH ABS # 0.81 K/uL (1.2-3.4); MEAN CORPUSCULAR HEMOGLOBIN 27.9 pg (25-34); MEAN CORPUSCULAR HGB CONC 32.1 g/dl (32-36); MEAN PLATELET VOLUME 9.7 fL (7.4-10.4); MONO % 2.1 %; MONO ABS # 0.28 K/uL (0.11-0.59); NEUT % 91.2 %; NEUT ABS # 12.15 K/uL (1.4-6.5); PLATELET COUNT 282 K/uL (130-400); RED CELL DISTRIBUTION WIDTH CV 15.4 % (11.5-14.5); RED CELL DISTRIBUTION WIDTH SD 49.3 fL (36.4-46.3); WHITE BLOOD COUNT 13.32 K/uL (4.8-10.8)
[2017-09-30 13:26] LABS: CALCIUM 8.5 mg/dl (8.5-10.1); CREATININE 1.18 mg/dl (0.60-1.20); POTASSIUM 4.5 mmol/L (3.5-5.1)
[2017-09-30] MEDS: ACETAMINOPHEN 325 MG TAB PO PRN ×2 (13:41→22:34)
[2017-09-30] MEDS ORDERED: WARFARIN SOD 5 MG TAB PO SCH (16:00)
--- NOTE | 2017-09-30 16:08 | Progress Note ---
Progress Note Date of Service Sep 30, 2017. Progress Note Follow up note, patient admitted after midnight patient breathing better with steroids and nebulizers eating well urinating well, no BM today discussed titrating back on steroids - COPD exacerbation: wheezing, increased work of breathing, productive cough feeling better today will decrease Solu Medrol to 60 q12 continue Levaquin, d/c Rocephin keep on tele today, likely to medical floor tomorrow ultimately place on Levaquin PO and Prednisone prior to discharge CAD/hypertension/mitral valve replacement with mechanical valve/status post balloon mitral valvuloplasty-- Continue aspirin 81 mg daily, furosemide 40 mg daily, potassium chloride ER 20 mEq daily and warfarin sodium daily Daily CBC with differential, BMP, magnesium and PT/INR. Hyperlipidemia-- Continue atorvastatin 80 mg daily GERD-- Continue pantoprazole 40 mg daily and ranitidine 150 mg p.o. twice daily. Depression-- Continue duloxetine 30 mg in the morning and 60 mg at bedtime, gabapentin 3 times daily and nortriptyline 75 mg at bedtime
[2017-09-30] MEDS: INSULIN ASPART 100 UNITS/ML 3 ML PEN SC SCH ×2 (16:15→21:00)
[2017-09-30] MEDS: ATORVASTATIN 40 MG TAB PO SCH (20:51)
[2017-09-30] MEDS: FEXOFENADINE HCL 180 MG TAB PO SCH (20:54)
[2017-09-30] MEDS: WARFARIN SOD 5 MG TAB PO SCH (20:55)
[2017-09-30] MEDS: NORTRIPTYLINE HCL 25 MG CAP PO SCH (22:29)
[2017-09-30] MEDS: DULOXETINE HCL 60 MG CAP PO SCH (22:31)
[2017-09-30] MEDS: IPRATROPIUM BROMIDE NEB SOLN 0.02% 2.5 ML VIAL INH PRN (23:55)
[2017-09-30] MEDS: LEVALBUTEROL 1.25MG/0.5ML NEB INH PRN (23:55)
[2017-10-01] VITALS (10 sets, daily range): BP systolic 113–143; BP diastolic 76–90; PULSE 104–119; TEMP 36.6–37; O2SAT 93–97
[2017-10-01] MEDS ORDERED: NURSING VERBAL MED ORDER ONE (00:30)
[2017-10-01] MEDS: LEVOFLOXACIN / D5W 500 MG in PREMIXED IN D5W 100 ML IV SCH (02:28)
[2017-10-01] MEDS: IPRATROPIUM BROMIDE NEB SOLN 0.02% 2.5 ML VIAL INH SCH ×4 (02:31→19:09)
[2017-10-01] MEDS: LEVALBUTEROL 1.25MG/0.5ML NEB INH SCH ×4 (02:31→19:09)
[2017-10-01] MEDS ORDERED: [UNRECOGNIZED DRUG - OTHER] EXT PRN ×2 (05:00→09:00)
[2017-10-01 06:51] LABS: BASO % 0.1 %; BASO ABS # 0.02 K/uL (0-0.2); HEMATOCRIT 37.6 % (37-47); HEMOGLOBIN 12.1 g/dL (12.0-16.0); IG# 0.13 K/uL (0.00-0.02); LYMPH % 7.1 %; LYMPH ABS # 1.55 K/uL (1.2-3.4); MEAN CELL VOLUME 87.9 fL (80-100); MEAN CORPUSCULAR HEMOGLOBIN 28.3 pg (25-34); MEAN CORPUSCULAR HGB CONC 32.2 g/dl (32-36); MEAN PLATELET VOLUME 9.6 fL (7.4-10.4); MONO % 7.3 %; MONO ABS # 1.58 K/uL (0.11-0.59); NEUT % 84.9 %; NEUT ABS # 18.44 K/uL (1.4-6.5); PLATELET COUNT 323 K/uL (130-400); RED CELL DISTRIBUTION WIDTH CV 15.7 % (11.5-14.5); RED CELL DISTRIBUTION WIDTH SD 49.8 fL (36.4-46.3); WHITE BLOOD COUNT 21.72 K/uL (4.8-10.8)
[2017-10-01] MEDS: INSULIN ASPART 100 UNITS/ML 3 ML PEN SC SCH ×4 (07:00→22:15)
[2017-10-01 07:23] LABS: CALCIUM 8.8 mg/dl (8.5-10.1); CREATININE 0.91 mg/dl (0.60-1.20); POTASSIUM 4.9 mmol/L (3.5-5.1)
[2017-10-01] MEDS: POTASSIUM CHLORIDE 20 MEQ TABCR PO SCH (09:00)
[2017-10-01] MEDS: FLUTICASONE PROPIONATE NA SPR 16 GM BTL SCH ×2 (09:13→22:06)
[2017-10-01] MEDS: METHYLPREDNISOLONE IV 60 MG in SYRINGE 0 ML IV SCH ×2 (09:13→22:06)
[2017-10-01] MEDS: GUAIFENESIN 600 MG TABCR PO SCH ×2 (09:14→22:08)
[2017-10-01] MEDS: RANITIDINE HCL 150 MG TAB PO SCH ×2 (09:14→22:09)
[2017-10-01] MEDS: FUROSEMIDE 40 MG TAB PO SCH (09:14)
[2017-10-01] MEDS: ASPIRIN 81 MG CHEW PO SCH (09:14)
[2017-10-01] MEDS: PANTOprazole SOD 40 MG TAB PO SCH (09:14)
[2017-10-01] MEDS ORDERED: BISACODYL 5 MG TABEC PO PRN (10:30)
[2017-10-01] MEDS: DULOXETINE (CYMBALTA) 30 MG CAP PO SCH (11:18)
--- NOTE | 2017-10-01 13:26 | Hospitalist Progress Note ---
Hospitalist Progress Note Date of Service Oct 01, 2017. (Dipika Espino ., PA-C) Subjective Pt evaluation today including: conversation w/ patient, physical exam, lab review, review of studies, review of inpatient medication list Voiding: no voiding problems Patient sitting in bedside chair. +SOB. Now on 2L o2 supplement- was on 4L at admission- per RN, sat at 94% on RA at rest. Eating and drinking OK. +cough, feels her chest is congested but unable to cough anything up. +constipation- add Dulcolax and MiraLAX. Patient denies any fever, chills, sweats, lightheadedness, dizziness, vision changes, CP, palpitations, edema, wheezing, abdominal pain, nausea, vomiting, diarrhea, urinary symptoms, melena, numbness/tingling, weakness, muscle/joint pain, anxiety/depression, active bleeding, or new skin discoloration/changes. (Dipika Espino ., PA-C) Medications Current Inpatient Medications Medications (Trade) Dose Ordered Sig/Ramakrishna Route Start Time Stop Time Status Last Admin Dose Admin Acetaminophen (Tylenol Tab) 650 mg Q4H PRN PO 09/30/17 03:30 10/30/17 03:29 09/30/17 22:34 650 MG Al Hydrox/Mg Hydrox/Simethicone (Maalox Max Susp) 15 ml Q4H PRN PO 09/30/17 03:30 10/30/17 03:29 Magnesium Hydroxide (Milk Of Magnesia Susp) 30 ml Q12H PRN PO 09/30/17 03:30 10/30/17 03:29 10/01/17 11:18 30 ML Zolpidem Tartrate (Ambien Tab) 5 mg HSZ PRN PO 09/30/17 03:30 10/30/17 03:29 Nitroglycerin (Nitrostat Tab) 0.4 mg UD PRN SL 09/30/17 03:30 10/30/17 03:29 Polyethylene (Miralax Powder Packet) 17 gm DAILY PRN PO 09/30/17 03:30 10/30/17 03:29 Aspirin (Aspirin Chew) 81 mg DAILY PO 09/30/17 09:00 10/30/17 08:59 10/01/17 09:14 81 MG Duloxetine HCl (Cymbalta Cap) 30 mg QAM PO 09/30/17 09:00 10/30/17 08:59 10/01/17 11:18 30 MG Duloxetine HCl (Cymbalta Cap) 60 mg HS PO 09/30/17 21:00 10/30/17 20:59 09/30/17 22:31 60 MG Furosemide (Lasix Tab) 40 mg DAILY PO 09/30/17 09:00 10/30/17 08:59 10/01/17 09:14 40 MG Lorazepam (Ativan Tab) 0.5 mg BID PRN PO 09/30/17 03:30 10/30/17 03:29 Pantoprazole Sodium (Protonix Tab) 40 mg DAILY PO 09/30/17 09:00 10/30/17 08:59 10/01/17 09:14 40 MG Potassium Chloride (Klor-Con Tab) 20 meq DAILY PO 09/30/17 09:00 10/30/17 08:59 09/30/17 08:39 20 MEQ Ranitidine HCl (zANTac TAB) 150 mg BID PO 09/30/17 09:00 10/30/17 08:59 10/01/17 09:14 150 MG Fluticasone Propionate (Flonase Nasal [place]) 2 sprays BID NA 09/30/17 09:00 10/30/17 08:59 10/01/17 09:13 2 SPRAYS Nortriptyline HCl (Pamelor Cap) 75 mg HS PO 09/30/17 21:00 10/30/17 20:59 09/30/17 22:29 75 MG Levofloxacin 500 mg/Prmx 100 ml @ 100 mls/hr Q24H IV 10/01/17 02:00 10/06/17 02:59 10/01/17 02:28 100 MLS/HR Guaifenesin (Mucinex Contr Rel Tab) 600 mg Q12 PO 09/30/17 09:00 10/30/17 08:59 10/01/17 09:14 600 MG Ipratropium [place] (Atrovent 0.02% 0.5MG/2.5ML Neb) 0.5 mg Q6R INH 09/30/17 09:00 10/30/17 08:59 10/01/17 12:56 0.5 MG Levalbuterol (Xopenex 1.25MG/ 0.5ML Neb) 1.25 mg Q6R INH 09/30/17 09:00 10/30/17 08:59 10/01/17 12:56 1.25 MG Ipratropium [place] (Atrovent 0.02% 0.5MG/2.5ML Neb) 0.5 mg Q2H PRN INH 09/30/17 04:00 10/30/17 03:59 09/30/17 23:55 0.5 MG Levalbuterol (Xopenex 1.25MG/ 0.5ML Neb) 1.25 mg Q2H PRN INH 09/30/17 04:00 10/30/17 03:59 09/30/17 23:55 1.25 MG Fexofenadine HCl (Lexii Tab) 180 mg HS PO 09/30/17 21:00 10/30/17 08:59 09/30/17 20:54 180 MG Atorvastatin Calcium (Lipitor Tab) 80 mg HS PO 09/30/17 21:00 10/30/17 08:59 09/30/17 20:51 80 MG Warfarin Sodium (Coumadin Tab) 5 mg HS PO 09/30/17 21:00 10/30/17 15:59 09/30/17 20:55 5 MG Insulin Aspart (novoLOG ASPART) SLIDING SCALE G... ACHS SC 09/30/17 16:15 10/30/17 16:14 Methylprednisolone Sodium Succinate 60 mg/Syringe 0.96 ml @ 1.5 mls/min Q12 IV 09/30/17 21:00 10/30/17 20:59 10/01/17 09:13 1.5 MLS/MIN Non-Formulary Medication (Non-Formulary Patient'S Own Med) 1 ea TID PRN EXT 10/01/17 05:00 10/31/17 04:59 Bisacodyl (Dulcolax Tab) 5 mg BID PRN PO 10/01/17 10:30 10/31/17 10:29 (Dipika Espino, KEVIN) Objective Vital Signs Date Time Temp Pulse Resp B/P (MAP) Pulse Ox O2 Delivery O2 Flow Rate FiO2 10/01/17 12:56 114 16 95 Nasal Cannula 2.0 10/01/17 12:00 Room Air 2.0 Nasal Cannula 10/01/17 11:52 36.7 119 26 143/90 (107) 93 Nasal Cannula 2.0 10/01/17 08:00 110 22 113/77 (89) 95 Room Air 2.0 10/01/17 08:00 Room Air 2.0 Nasal Cannula 10/01/17 07:42 110 16 95 Nasal Cannula 0.5 10/01/17 04:00 36.8 112 118/76 (90) 93 Nasal Cannula 2.0 10/01/17 04:00 93 Nasal Cannula 2.0 10/01/17 00:00 95 Nasal Cannula 2.0 09/30/17 23:54 115 16 94 Nasal Cannula 2.0 09/30/17 23:31 37.1 112 19 123/77 (92) 95 Nasal Cannula 2.0 09/30/17 20:27 107 16 96 Nasal Cannula 4.0 09/30/17 20:00 94 Nasal Cannula 3.0 09/30/17 19:30 36.9 109 18 130/82 (98) 94 2.0 09/30/17 16:00 Nasal Cannula 3.0 09/30/17 15:28 36.6 105 20 107/73 (84) 94 Nasal Cannula 3.0 (Dipika Espino, PA-C) Physical Exam General Appearance: no apparent distress, + obese, + pertinent finding (O2 NC ) Eyes: normal inspection, PERRL ENT: hearing grossly normal Neck: supple Respiratory/Chest: lungs clear, no respiratory distress, no accessory muscle use, + decreased breath sounds (throughout all lung ramsay ) Cardiovascular: + tachycardia (regular rhythm ) Abdomen: normal bowel sounds, non tender, soft Extremities: no pedal edema, no calf tenderness Neurologic/Psychiatric: alert, normal mood/affect, oriented x 3 Skin: normal color, warm/dry, no rash (Dipika Espino, PA-C) Laboratory Results Last 24 Hours Test 09/30/17 16:28 09/30/17 20:12 10/01/17 06:04 10/01/17 06:37 Bedside Glucose 171 mg/dl 134 mg/dl 152 mg/dl White Blood Count 21.72 K/uL Red Blood Count 4.28 M/uL Hemoglobin 12.1 g/dL Hematocrit 37.6 % Mean Corpuscular Volume 87.9 fL Mean Corpuscular Hemoglobin 28.3 pg Mean Corpuscular Hemoglobin Concent 32.2 g/dl Platelet Count 323 K/uL Mean Platelet Volume 9.6 fL Neutrophils (%) (Auto) 84.9 % Lymphocytes (%) (Auto) 7.1 % Monocytes (%) (Auto) 7.3 % Eosinophils (%) (Auto) 0.0 % Basophils (%) (Auto) 0.1 % Neutrophils # (Auto) 18.44 K/uL Lymphocytes # (Auto) 1.55 K/uL Monocytes # (Auto) 1.58 K/uL Eosinophils # (Auto) 0.00 K/uL Basophils # (Auto) 0.02 K/uL RDW Standard Deviation 49.8 fL RDW Coefficient of Variation 15.7 % Immature Granulocyte % (Auto) 0.6 % Immature Granulocyte # (Auto) 0.13 K/uL Sodium Level 138 mmol/L Potassium Level 4.9 mmol/L Chloride Level 103 mmol/L Carbon Dioxide Level 28 mmol/L Anion Gap 7.0 mmol/L Blood Urea Nitrogen 14 mg/dl Creatinine 0.91 mg/dl Est Creatinine Clear Calc Drug Dose 76.0 ml/min Estimated GFR () 83.5 Estimated GFR (Non- 72.0 BUN/Creatinine Ratio 15.6 Random Glucose 136 mg/dl Calcium Level 8.8 mg/dl Magnesium Level 2.4 mg/dl Test 10/01/17 11:41 Bedside Glucose 130 mg/dl (Dipika Espino, PA-C) Assessment and Plan The patient is a 52-year-old female who presents to the emergency department with worsening shortness of breath, generalized body aches, headache and runny nose that began 2 days prior to arrival at the insistence of her daughter who is in attendance. She is exposed to 2 young grandchildren, and other family members who have been sick. She has a known history of COPD and has been using her nebulizers at home. She did not get a flu shot this year. Acute hypoxic respiratory failure, COPD exacerbation: - Ad[facility] to [facility] for cardiac monitoring- no acute events, sinus tachycardia- transfer to med/surg - O2 protocol, wean as tolerated- does not wear O2 supplement at home - IV Levaquin 750 mg daily - IV Solu Medrol 60 mg BID - DuoNebs QID and PRN for SOB/wheezing + incentive spirometer + flutter valve - Mucinex 600 mg BID - Influenza negative; sputum culture with normal neo CAD, HTN, s/p mitral valve replacement with mechanical valve, s/p balloon mitral valvuloplasty: - Continue aspirin 81 mg daily, furosemide 40 mg daily, potassium chloride ER 20 mEq daily - Continue Coumadin- adjust dose PRN for INR goal 2.5-3.5 Hyperlipidemia: Continue Atorvastatin 80 mg daily Constipation: Dulcolax and MiraLAX PRN Depression: Continue Duloxetine 30 mg in the morning and 60 mg at bedtime, Gabapentin 3 times daily, and Nortriptyline 75 mg at bedtime GERD: Continue Pantoprazole 40 mg daily and Ranitidine 150 mg BID DVT prophylaxis: Coumadin Code status: LEVEL I, FULL Dispo: Discharge to home once medically stable (Dipika Espino, PA-C) Supervising Note Dr. [place] I performed a history and physical examination on the patient. I reviewed above note and agree with it. I discussed plan with APC and patient. During my face to face encounter with the patient, I answered all of the patient's questions. (Power [place] M.D.)
[2017-10-01] MEDS: FEXOFENADINE HCL 180 MG TAB PO SCH (22:07)
[2017-10-01] MEDS: WARFARIN SOD 5 MG TAB PO SCH (22:07)
[2017-10-01] MEDS: ATORVASTATIN 40 MG TAB PO SCH (22:09)
[2017-10-01] MEDS: DULOXETINE HCL 60 MG CAP PO SCH (22:09)
[2017-10-01] MEDS: NORTRIPTYLINE HCL 25 MG CAP PO SCH (22:10)
[2017-10-01] MEDS: ACETAMINOPHEN 325 MG TAB PO PRN (22:17)
[2017-10-02] VITALS (9 sets, daily range): BP systolic 108–130; BP diastolic 73–88; PULSE 93–105; TEMP 36.5–36.8; O2SAT 91–98
[2017-10-02] MEDS: LEVALBUTEROL 1.25MG/0.5ML NEB INH SCH ×4 (02:09→19:02)
[2017-10-02] MEDS: IPRATROPIUM BROMIDE NEB SOLN 0.02% 2.5 ML VIAL INH SCH ×4 (02:09→19:02)
[2017-10-02] MEDS: LEVOFLOXACIN / D5W 500 MG in PREMIXED IN D5W 100 ML IV SCH (02:16)
[2017-10-02] MEDS: INSULIN ASPART 100 UNITS/ML 3 ML PEN SC SCH ×4 (06:30→20:23)
[2017-10-02] MEDS: RANITIDINE HCL 150 MG TAB PO SCH ×2 (07:22→19:47)
[2017-10-02] MEDS: FLUTICASONE PROPIONATE NA SPR 16 GM BTL SCH ×2 (07:22→19:44)
[2017-10-02] MEDS: PANTOprazole SOD 40 MG TAB PO SCH (07:22)
[2017-10-02] MEDS: FUROSEMIDE 40 MG TAB PO SCH (07:23)
[2017-10-02] MEDS: DULOXETINE (CYMBALTA) 30 MG CAP PO SCH (07:23)
[2017-10-02] MEDS: GUAIFENESIN 600 MG TABCR PO SCH ×2 (07:23→19:46)
[2017-10-02] MEDS: POTASSIUM CHLORIDE 20 MEQ TABCR PO SCH (07:24)
[2017-10-02] MEDS: ASPIRIN 81 MG CHEW PO SCH (07:24)
[2017-10-02 08:02] LABS: HEMOGLOBIN 12.2 g/dL (12.0-16.0); MEAN CELL VOLUME 87.8 fL (80-100); MEAN CORPUSCULAR HEMOGLOBIN 28.2 pg (25-34); MEAN CORPUSCULAR HGB CONC 32.1 g/dl (32-36); MEAN PLATELET VOLUME 9.4 fL (7.4-10.4); PLATELET COUNT 323 K/uL (130-400); RED CELL DISTRIBUTION WIDTH CV 15.5 % (11.5-14.5); RED CELL DISTRIBUTION WIDTH SD 50.1 fL (36.4-46.3); WHITE BLOOD COUNT 21.82 K/uL (4.8-10.8)
[2017-10-02] MEDS: METHYLPREDNISOLONE IV 60 MG in SYRINGE 0 ML IV SCH (08:16)
[2017-10-02 08:34] LABS: CALCIUM 8.4 mg/dl (8.5-10.1); CREATININE 0.9 mg/dl (0.60-1.20); POTASSIUM 4.3 mmol/L (3.5-5.1)
--- NOTE | 2017-10-02 13:22 | Hospitalist Progress Note ---
Hospitalist Progress Note Date of Service Oct 02, 2017. (Dipika Espino ., KEVIN) Subjective Pt evaluation today including: conversation w/ patient, conversation w/ family , physical exam, lab review, review of inpatient medication list Voiding: no voiding problems Patient sitting in bed. Feeling slightly improved. Eating and drinking OK. +cough throughout the night w/ yellow sputum production. +SOB- still requiring O2 supplement. +periodic wheezing. Patient denies any fever, chills, sweats, lightheadedness, dizziness, vision changes, CP, palpitations, edema, abdominal pain, nausea, vomiting, diarrhea, urinary symptoms, melena, numbness/tingling, weakness, muscle/joint pain, anxiety/depression, active bleeding, or new skin discoloration/changes. (Dipika Espino, EBC) Medications Current Inpatient Medications Medications (Trade) Dose Ordered Sig/Ramakrishna Route Start Time Stop Time Status Last Admin Dose Admin Acetaminophen (Tylenol Tab) 650 mg Q4H PRN PO 09/30/17 03:30 10/30/17 03:29 10/01/17 22:17 650 MG Al Hydrox/Mg Hydrox/Simethicone (Maalox Max Susp) 15 ml Q4H PRN PO 09/30/17 03:30 10/30/17 03:29 Magnesium Hydroxide (Milk Of Magnesia Susp) 30 ml Q12H PRN PO 09/30/17 03:30 10/30/17 03:29 10/01/17 11:18 30 ML Zolpidem Tartrate (Ambien Tab) 5 mg HSZ PRN PO 09/30/17 03:30 10/30/17 03:29 Nitroglycerin (Nitrostat Tab) 0.4 mg UD PRN SL 09/30/17 03:30 10/30/17 03:29 Polyethylene (Miralax Powder Packet) 17 gm DAILY PRN PO 09/30/17 03:30 10/30/17 03:29 Aspirin (Aspirin Chew) 81 mg DAILY PO 09/30/17 09:00 10/30/17 08:59 10/02/17 07:24 81 MG Duloxetine HCl (Cymbalta Cap) 30 mg QAM PO 09/30/17 09:00 10/30/17 08:59 10/02/17 07:23 30 MG Duloxetine HCl (Cymbalta Cap) 60 mg HS PO 09/30/17 21:00 10/30/17 20:59 10/01/17 22:09 60 MG Furosemide (Lasix Tab) 40 mg DAILY PO 09/30/17 09:00 10/30/17 08:59 10/02/17 07:23 40 MG Lorazepam (Ativan Tab) 0.5 mg BID PRN PO 09/30/17 03:30 10/30/17 03:29 Pantoprazole Sodium (Protonix Tab) 40 mg DAILY PO 09/30/17 09:00 10/30/17 08:59 10/02/17 07:22 40 MG Potassium Chloride (Klor-Con Tab) 20 meq DAILY PO 09/30/17 09:00 10/30/17 08:59 10/02/17 07:24 20 MEQ Ranitidine HCl (zANTac TAB) 150 mg BID PO 09/30/17 09:00 10/30/17 08:59 10/02/17 07:22 150 MG Fluticasone Propionate (Flonase Nasal [place]) 2 sprays BID NA 09/30/17 09:00 10/30/17 08:59 10/02/17 07:22 2 SPRAYS Nortriptyline HCl (Pamelor Cap) 75 mg HS PO 09/30/17 21:00 10/30/17 20:59 10/01/17 22:10 75 MG Levofloxacin 500 mg/Prmx 100 ml @ 100 mls/hr Q24H IV 10/01/17 02:00 10/06/17 02:59 10/02/17 02:16 100 MLS/HR Guaifenesin (Mucinex Contr Rel Tab) 600 mg Q12 PO 09/30/17 09:00 10/30/17 08:59 10/02/17 07:23 600 MG Ipratropium [place] (Atrovent 0.02% 0.5MG/2.5ML Neb) 0.5 mg Q6R INH 09/30/17 09:00 10/30/17 08:59 10/02/17 13:13 0.5 MG Levalbuterol (Xopenex 1.25MG/ 0.5ML Neb) 1.25 mg Q6R INH 09/30/17 09:00 10/30/17 08:59 10/02/17 13:13 1.25 MG Ipratropium [place] (Atrovent 0.02% 0.5MG/2.5ML Neb) 0.5 mg Q2H PRN INH 09/30/17 04:00 10/30/17 03:59 09/30/17 23:55 0.5 MG Levalbuterol (Xopenex 1.25MG/ 0.5ML Neb) 1.25 mg Q2H PRN INH 09/30/17 04:00 10/30/17 03:59 09/30/17 23:55 1.25 MG Fexofenadine HCl (Lexii Tab) 180 mg HS PO 09/30/17 21:00 10/30/17 08:59 10/01/17 22:07 180 MG Atorvastatin Calcium (Lipitor Tab) 80 mg HS PO 09/30/17 21:00 10/30/17 08:59 10/01/17 22:09 80 MG Warfarin Sodium (Coumadin Tab) 5 mg HS PO 09/30/17 21:00 10/30/17 15:59 10/01/17 22:07 5 MG Insulin Aspart (novoLOG ASPART) SLIDING SCALE G... ACHS SC 09/30/17 16:15 10/30/17 16:14 Methylprednisolone Sodium Succinate 60 mg/Syringe 0.96 ml @ 1.5 mls/min Q12 IV 09/30/17 21:00 10/30/17 20:59 10/02/17 08:16 1.5 MLS/MIN Non-Formulary Medication (Non-Formulary Patient'S Own Med) 1 ea TID PRN EXT 10/01/17 05:00 10/31/17 04:59 Bisacodyl (Dulcolax Tab) 5 mg BID PRN PO 10/01/17 10:30 10/31/17 10:29 (Dipika Espino, KEVIN) Objective Vital Signs Date Time Temp Pulse Resp B/P (MAP) Pulse Ox O2 Delivery O2 Flow Rate FiO2 10/02/17 13:13 105 20 91 Nasal Cannula 1.0 10/02/17 09:03 36.6 101 18 108/73 (85) 98 Nasal Cannula 2.0 10/02/17 08:00 98 Room Air 10/02/17 07:16 99 16 98 Nasal Cannula 2.0 10/02/17 02:09 102 20 95 Nasal Cannula 2.0 10/02/17 00:34 36.8 104 20 130/88 (102) 95 Nasal Cannula 2.0 10/02/17 00:00 Nasal Cannula 2.0 10/01/17 20:00 96 Nasal Cannula 2.0 10/01/17 19:32 37.0 108 95 127/84 (98) 96 Nasal Cannula 2.0 10/01/17 19:09 106 20 96 Nasal Cannula 2.0 10/01/17 16:15 36.6 104 18 136/79 (98) 97 Nasal Cannula 2.0 10/01/17 16:00 Room Air Nasal Cannula (Dipika Espino, PA-C) Physical Exam General Appearance: no apparent distress, + obese, + pertinent finding (O2 NC) Eyes: normal inspection, PERRL ENT: hearing grossly normal Neck: supple Respiratory/Chest: no respiratory distress, no accessory muscle use, + decreased breath sounds (throughout, moving air better today), + wheezing ( slight, scattered expiratory wheeze ) Cardiovascular: regular rate, rhythm Abdomen: normal bowel sounds, non tender, soft Extremities: no pedal edema, no calf tenderness Neurologic/Psychiatric: alert, normal mood/affect, oriented x 3 Skin: normal color, warm/dry, no rash (Dipika Espino, PA-C) Laboratory Results Last 24 Hours Test 10/01/17 16:16 10/01/17 22:15 10/02/17 07:39 10/02/17 07:42 Bedside Glucose 132 mg/dl 140 mg/dl 144 mg/dl White Blood Count 21.82 K/uL Red Blood Count 4.33 M/uL Hemoglobin 12.2 g/dL Hematocrit 38.0 % Mean Corpuscular Volume 87.8 fL Mean Corpuscular Hemoglobin 28.2 pg Mean Corpuscular Hemoglobin Concent 32.1 g/dl RDW Standard Deviation 50.1 fL RDW Coefficient of Variation 15.5 % Platelet Count 323 K/uL Mean Platelet Volume 9.4 fL Sodium Level 137 mmol/L Potassium Level 4.3 mmol/L Chloride Level 100 mmol/L Carbon Dioxide Level 31 mmol/L Anion Gap 5.0 mmol/L Blood Urea Nitrogen 18 mg/dl Creatinine 0.90 mg/dl Est Creatinine Clear Calc Drug Dose 76.9 ml/min Estimated GFR () 84.6 Estimated GFR (Non- 73.0 BUN/Creatinine Ratio 19.6 Random Glucose 136 mg/dl Calcium Level 8.4 mg/dl Test 10/02/17 11:26 Bedside Glucose 166 mg/dl (Dipika Espino PA-C) Assessment and Plan The patient is a 52-year-old female who presents to the emergency department with worsening shortness of breath, generalized body aches, headache and runny nose that began 2 days prior to arrival at the insistence of her daughter who is in attendance. She is exposed to 2 young grandchildren, and other family members who have been sick. She has a known history of COPD and has been using her nebulizers at home. She did not get a flu shot this year. Acute hypoxic respiratory failure, COPD exacerbation: - Ad[facility] to [facility] for cardiac monitoring- no acute events, sinus tachycardia- transferred to med/surg - O2 protocol, wean as tolerated- does not wear O2 supplement at home - IV Levaquin 750 mg daily- transition to PO - IV Solu Medrol 60 mg BID- decrease to 40 mg BID - DuoNebs QID and PRN for SOB/wheezing + incentive spirometer + flutter valve - Mucinex 600 mg BID - Influenza negative; sputum culture with normal neo CAD, HTN, s/p mitral valve replacement with mechanical valve, s/p balloon mitral valvuloplasty: - Continue ASA 81 mg daily, Lasix 40 mg daily, KCL ER 20 mEq daily - Continue Coumadin- adjust dose PRN for INR goal 2.5-3.5 Hyperlipidemia: Continue Atorvastatin 80 mg daily Constipation- RESOLVED: Continue Dulcolax and MiraLAX PRN Depression: Continue Duloxetine 30 mg in the morning and 60 mg at bedtime, Gabapentin 3 times daily, and Nortriptyline 75 mg at bedtime GERD: Continue Pantoprazole 40 mg daily and Ranitidine 150 mg BID DVT prophylaxis: Coumadin Code status: LEVEL I, FULL Dispo: Discharge to home once medically stable- hopefully within the next 1-2 days (Dipika Espino PA-C) Supervising Note Dr. [place] I performed a history and physical examination on the patient. I reviewed above note and agree with it. I discussed plan with APC and patient. During my face to face encounter with the patient, I answered all of the patient's questions. (Power [place] M.D.)
[2017-10-02] MEDS: METHYLPREDNISOLONE IV 40 MG in SYRINGE 0 ML IV SCH (19:44)
[2017-10-02] MEDS: ATORVASTATIN 40 MG TAB PO SCH (19:45)
[2017-10-02] MEDS: WARFARIN SOD 5 MG TAB PO SCH (19:45)
[2017-10-02] MEDS: FEXOFENADINE HCL 180 MG TAB PO SCH (19:45)
[2017-10-02] MEDS: DULOXETINE HCL 60 MG CAP PO SCH (19:46)
[2017-10-02] MEDS: NORTRIPTYLINE HCL 25 MG CAP PO SCH (19:47)
[2017-10-03] VITALS (9 sets, daily range): BP systolic 103–128; BP diastolic 71–84; PULSE 60–105; TEMP 36.5–36.6; O2SAT 90–97
[2017-10-03] MEDS: LEVALBUTEROL 1.25MG/0.5ML NEB INH SCH ×5 (01:43→20:35)
[2017-10-03] MEDS: IPRATROPIUM BROMIDE NEB SOLN 0.02% 2.5 ML VIAL INH SCH ×5 (01:43→20:35)
[2017-10-03] MEDS: LEVOFLOXACIN 750 MG TAB PO SCH (06:09)
[2017-10-03] MEDS: INSULIN ASPART 100 UNITS/ML 3 ML PEN SC SCH ×4 (06:30→20:26)
[2017-10-03] MEDS: POTASSIUM CHLORIDE 20 MEQ TABCR PO SCH (08:03)
[2017-10-03] MEDS: PANTOprazole SOD 40 MG TAB PO SCH (08:03)
[2017-10-03] MEDS: FUROSEMIDE 40 MG TAB PO SCH (08:03)
[2017-10-03] MEDS: FLUTICASONE PROPIONATE NA SPR 16 GM BTL SCH ×2 (08:03→20:24)
[2017-10-03] MEDS: DULOXETINE (CYMBALTA) 30 MG CAP PO SCH (08:03)
[2017-10-03] MEDS: GUAIFENESIN 600 MG TABCR PO SCH ×2 (08:03→20:24)
[2017-10-03] MEDS: METHYLPREDNISOLONE IV 40 MG in SYRINGE 0 ML IV SCH ×2 (08:03→20:17)
[2017-10-03] MEDS: RANITIDINE HCL 150 MG TAB PO SCH ×2 (08:04→20:24)
[2017-10-03] MEDS: ASPIRIN 81 MG CHEW PO SCH (08:08)
[2017-10-03 09:02] LABS: HEMOGLOBIN 12.2 g/dL (12.0-16.0); MEAN CELL VOLUME 87.8 fL (80-100); MEAN CORPUSCULAR HEMOGLOBIN 28.2 pg (25-34); MEAN CORPUSCULAR HGB CONC 32.1 g/dl (32-36); MEAN PLATELET VOLUME 9.5 fL (7.4-10.4); PLATELET COUNT 312 K/uL (130-400); RED CELL DISTRIBUTION WIDTH CV 15.3 % (11.5-14.5); RED CELL DISTRIBUTION WIDTH SD 49.4 fL (36.4-46.3)
[2017-10-03 09:18] LABS: INR 5.3 (0.9-1.1)
[2017-10-03 09:31] LABS: CALCIUM 8.4 mg/dl (8.5-10.1); CREATININE 0.87 mg/dl (0.60-1.20); POTASSIUM 3.7 mmol/L (3.5-5.1)
--- NOTE | 2017-10-03 13:43 | Hospitalist Progress Note ---
Hospitalist Progress Note Date of Service Oct 03, 2017. (Dipika Espino ., EBC) Subjective Pt evaluation today including: conversation w/ patient, physical exam, lab review, review of inpatient medication list Voiding: no voiding problems Patient resting in bed. Feels she is moving air better. +SOB, mainly with exertion. Discussed weaning from O2 Eating and drinking OK. Patient denies any fever, chills, sweats, lightheadedness, dizziness, vision changes, CP, palpitations, edema, wheezing, abdominal pain, nausea, vomiting, diarrhea, urinary symptoms, melena, numbness/tingling, weakness, muscle/joint pain, anxiety/depression, active bleeding, or new skin discoloration/changes. (Dipika Espino ., EBC) Medications Current Inpatient Medications Medications (Trade) Dose Ordered Sig/Ramakrishna Route Start Time Stop Time Status Last Admin Dose Admin Acetaminophen (Tylenol Tab) 650 mg Q4H PRN PO 09/30/17 03:30 10/30/17 03:29 10/01/17 22:17 650 MG Al Hydrox/Mg Hydrox/Simethicone (Maalox Max Susp) 15 ml Q4H PRN PO 09/30/17 03:30 10/30/17 03:29 Magnesium Hydroxide (Milk Of Magnesia Susp) 30 ml Q12H PRN PO 09/30/17 03:30 10/30/17 03:29 10/01/17 11:18 30 ML Zolpidem Tartrate (Ambien Tab) 5 mg HSZ PRN PO 09/30/17 03:30 10/30/17 03:29 Nitroglycerin (Nitrostat Tab) 0.4 mg UD PRN SL 09/30/17 03:30 10/30/17 03:29 Polyethylene (Miralax Powder Packet) 17 gm DAILY PRN PO 09/30/17 03:30 10/30/17 03:29 Aspirin (Aspirin Chew) 81 mg DAILY PO 09/30/17 09:00 10/30/17 08:59 10/03/17 08:08 81 MG Duloxetine HCl (Cymbalta Cap) 30 mg QAM PO 09/30/17 09:00 10/30/17 08:59 10/03/17 08:03 30 MG Duloxetine HCl (Cymbalta Cap) 60 mg HS PO 09/30/17 21:00 10/30/17 20:59 10/02/17 19:46 60 MG Furosemide (Lasix Tab) 40 mg DAILY PO 09/30/17 09:00 10/30/17 08:59 10/03/17 08:03 40 MG Lorazepam (Ativan Tab) 0.5 mg BID PRN PO 09/30/17 03:30 10/30/17 03:29 Pantoprazole Sodium (Protonix Tab) 40 mg DAILY PO 09/30/17 09:00 10/30/17 08:59 10/03/17 08:03 40 MG Potassium Chloride (Klor-Con Tab) 20 meq DAILY PO 09/30/17 09:00 10/30/17 08:59 10/03/17 08:03 20 MEQ Ranitidine HCl (zANTac TAB) 150 mg BID PO 09/30/17 09:00 10/30/17 08:59 10/03/17 08:04 150 MG Fluticasone Propionate (Flonase Nasal [place]) 2 sprays BID NA 09/30/17 09:00 10/30/17 08:59 10/03/17 08:03 2 SPRAYS Nortriptyline HCl (Pamelor Cap) 75 mg HS PO 09/30/17 21:00 10/30/17 20:59 10/02/17 19:47 75 MG Guaifenesin (Mucinex Contr Rel Tab) 600 mg Q12 PO 09/30/17 09:00 10/30/17 08:59 10/03/17 08:03 600 MG Ipratropium [place] (Atrovent 0.02% 0.5MG/2.5ML Neb) 0.5 mg Q6R INH 09/30/17 09:00 10/30/17 08:59 10/03/17 07:09 0.5 MG Levalbuterol (Xopenex 1.25MG/ 0.5ML Neb) 1.25 mg Q6R INH 09/30/17 09:00 10/30/17 08:59 10/03/17 07:09 1.25 MG Ipratropium [place] (Atrovent 0.02% 0.5MG/2.5ML Neb) 0.5 mg Q2H PRN INH 09/30/17 04:00 10/30/17 03:59 09/30/17 23:55 0.5 MG Levalbuterol (Xopenex 1.25MG/ 0.5ML Neb) 1.25 mg Q2H PRN INH 09/30/17 04:00 10/30/17 03:59 09/30/17 23:55 1.25 MG Fexofenadine HCl (Lexii Tab) 180 mg HS PO 09/30/17 21:00 10/30/17 08:59 10/02/17 19:45 180 MG Atorvastatin Calcium (Lipitor Tab) 80 mg HS PO 09/30/17 21:00 10/30/17 08:59 10/02/17 19:45 80 MG Warfarin Sodium (Coumadin Tab) 5 mg HS PO 09/30/17 21:00 10/30/17 15:59 Future Hold 10/02/17 19:45 5 MG Insulin Aspart (novoLOG ASPART) SLIDING SCALE G... ACHS SC 09/30/17 16:15 10/30/17 16:14 10/02/17 20:23 2 UNITS Non-Formulary Medication (Non-Formulary Patient'S Own Med) 1 ea TID PRN EXT 10/01/17 05:00 10/31/17 04:59 Bisacodyl (Dulcolax Tab) 5 mg BID PRN PO 10/01/17 10:30 10/31/17 10:29 Methylprednisolone Sodium Succinate 40 mg/Syringe 0.64 ml @ 1.5 mls/min BID IV 10/02/17 21:00 10/03/17 22:00 10/03/17 08:03 1.5 MLS/MIN Levofloxacin (Levaquin Tab) 750 mg DAILY@0700 PO 10/03/17 07:00 10/06/17 06:59 10/03/17 06:09 750 MG Prednisone (PredniSONE TAB) 40 mg QAM PO 10/04/17 09:00 11/03/17 08:59 (Dipika Espino, KEVIN) Objective Vital Signs Date Time Temp Pulse Resp B/P (MAP) Pulse Ox O2 Delivery O2 Flow Rate FiO2 10/03/17 08:00 Nasal Cannula 2.0 10/03/17 07:36 36.5 97 18 105/71 (82) 95 Nasal Cannula 2.0 10/03/17 07:09 96 16 97 Nasal Cannula 2.0 10/03/17 05:06 36.6 95 18 103/73 (83) 90 Nasal Cannula 2.0 10/03/17 01:45 60 16 95 Nasal Cannula 2.0 10/03/17 00:42 Nasal Cannula 2.0 10/02/17 19:02 100 20 95 Nasal Cannula 1.0 10/02/17 16:10 98 Room Air 10/02/17 15:45 36.5 93 22 114/79 (91) 95 Nasal Cannula 1.0 (Dipika Espino, PA-C) Physical Exam General Appearance: no apparent distress, + obese, + pertinent finding (O2 NC) Eyes: normal inspection, PERRL ENT: hearing grossly normal Neck: supple Respiratory/Chest: lungs clear, no respiratory distress, no accessory muscle use, + decreased breath sounds (throughout, continues to have improvement with air movement ) Cardiovascular: regular rate, rhythm Abdomen: normal bowel sounds, non tender, soft Extremities: no pedal edema, no calf tenderness Neurologic/Psychiatric: alert, normal mood/affect, oriented x 3 Skin: normal color, warm/dry, no rash (Dipika Espino ., PA-C) Laboratory Results Last 24 Hours Test 10/02/17 16:08 10/02/17 19:57 10/03/17 07:39 10/03/17 08:30 Bedside Glucose 148 mg/dl 212 mg/dl 116 mg/dl White Blood Count 20.40 K/uL Red Blood Count 4.33 M/uL Hemoglobin 12.2 g/dL Hematocrit 38.0 % Mean Corpuscular Volume 87.8 fL Mean Corpuscular Hemoglobin 28.2 pg Mean Corpuscular Hemoglobin Concent 32.1 g/dl RDW Standard Deviation 49.4 fL RDW Coefficient of Variation 15.3 % Platelet Count 312 K/uL Mean Platelet Volume 9.5 fL Prothrombin Time 53.7 SECONDS Prothromb Time International Ratio 5.3 Sodium Level 135 mmol/L Potassium Level 3.7 mmol/L Chloride Level 97 mmol/L Carbon Dioxide Level 30 mmol/L Anion Gap 8.0 mmol/L Blood Urea Nitrogen 18 mg/dl Creatinine 0.87 mg/dl Est Creatinine Clear Calc Drug Dose 79.5 ml/min Estimated GFR () 88.2 Estimated GFR (Non- 76.1 BUN/Creatinine Ratio 20.4 Random Glucose 179 mg/dl Calcium Level 8.4 mg/dl Test 10/03/17 11:54 Bedside Glucose 120 mg/dl (Dipika Espino PA-C) Assessment and Plan The patient is a 52-year-old female who presents to the emergency department with worsening shortness of breath, generalized body aches, headache and runny nose that began 2 days prior to arrival at the insistence of her daughter who is in attendance. She is exposed to 2 young grandchildren, and other family members who have been sick. She has a known history of COPD and has been using her nebulizers at home. She did not get a flu shot this year. Acute hypoxic respiratory failure, COPD exacerbation: - Admitted to [facility] for cardiac monitoring- no acute events, sinus tachycardia- transferred to med/surg - O2 protocol, wean as tolerated- does not wear O2 supplement at home - Levaquin 750 mg daily- last day of treatment 10/05 - IV Solu Medrol- transitioned to Prednisone 40 mg daily and taper - DuoNebs QID and PRN for SOB/wheezing + incentive spirometer + flutter valve - Mucinex 600 mg BID - Influenza negative; sputum culture with normal neo CAD, HTN, s/p mitral valve replacement with mechanical valve, s/p balloon mitral valvuloplasty: - Continue ASA 81 mg daily, Lasix 40 mg daily, KCL ER 20 mEq daily - Continue Coumadin- adjust dose PRN for INR goal 2.5-3.5 Hyperlipidemia: Continue Atorvastatin 80 mg daily Constipation- RESOLVED: Continue Dulcolax and MiraLAX PRN Depression: Continue Duloxetine 30 mg in the morning and 60 mg at bedtime, Gabapentin 3 times daily, and Nortriptyline 75 mg at bedtime GERD: Continue Pantoprazole 40 mg daily and Ranitidine 150 mg BID DVT prophylaxis: Coumadin Code status: LEVEL I, FULL Dispo: Discharge to home once medically stable- hopefully tomorrow (Dipika Espino PA-C) Supervising Note Dr. [place] I performed a history and physical examination on the patient. I reviewed above note and agree with it. I discussed plan with APC and patient. During my face to face encounter with the patient, I answered all of the patient's questions. (Power [place] M.D.)
[2017-10-03] MEDS: NORTRIPTYLINE HCL 25 MG CAP PO SCH (20:24)
[2017-10-03] MEDS: FEXOFENADINE HCL 180 MG TAB PO SCH (20:25)
[2017-10-03] MEDS: ATORVASTATIN 40 MG TAB PO SCH (20:25)
[2017-10-03] MEDS: DULOXETINE HCL 60 MG CAP PO SCH (20:26)
[2017-10-03] MEDS: ACETAMINOPHEN 325 MG TAB PO PRN (22:21)
[2017-10-04] VITALS (7 sets, daily range): BP systolic 114–143; BP diastolic 78–85; PULSE 87–101; TEMP 36.5–36.8; O2SAT 90–98
[2017-10-04] MEDS: IPRATROPIUM BROMIDE NEB SOLN 0.02% 2.5 ML VIAL INH SCH ×3 (02:05→15:00)
[2017-10-04] MEDS: LEVALBUTEROL 1.25MG/0.5ML NEB INH SCH ×3 (02:05→15:00)
[2017-10-04] MEDS: LEVOFLOXACIN 750 MG TAB PO SCH (06:28)
[2017-10-04] MEDS: INSULIN ASPART 100 UNITS/ML 3 ML PEN SC SCH ×4 (07:00→20:38)
[2017-10-04] MEDS: GUAIFENESIN 600 MG TABCR PO SCH ×2 (08:02→20:39)
[2017-10-04] MEDS: PANTOprazole SOD 40 MG TAB PO SCH (08:02)
[2017-10-04] MEDS: DULOXETINE (CYMBALTA) 30 MG CAP PO SCH (08:02)
[2017-10-04] MEDS: RANITIDINE HCL 150 MG TAB PO SCH ×2 (08:03→20:41)
[2017-10-04] MEDS: POTASSIUM CHLORIDE 20 MEQ TABCR PO SCH (08:03)
[2017-10-04] MEDS: FUROSEMIDE 40 MG TAB PO SCH (08:03)
[2017-10-04] MEDS: FLUTICASONE PROPIONATE NA SPR 16 GM BTL SCH ×2 (08:03→20:41)
[2017-10-04] MEDS: ASPIRIN 81 MG CHEW PO SCH (08:04)
[2017-10-04 08:31] LABS: HEMATOCRIT 37.8 % (37-47); HEMOGLOBIN 12.3 g/dL (12.0-16.0); MEAN CELL VOLUME 86.5 fL (80-100); MEAN CORPUSCULAR HEMOGLOBIN 28.1 pg (25-34); MEAN CORPUSCULAR HGB CONC 32.5 g/dl (32-36); MEAN PLATELET VOLUME 8.8 fL (7.4-10.4); PLATELET COUNT 333 K/uL (130-400); RED CELL DISTRIBUTION WIDTH CV 15.2 % (11.5-14.5); RED CELL DISTRIBUTION WIDTH SD 48.3 fL (36.4-46.3); WHITE BLOOD COUNT 22.93 K/uL (4.8-10.8)
[2017-10-04 08:44] LABS: INR 5.2 (0.9-1.1)
[2017-10-04 09:00] LABS: CALCIUM 8.2 mg/dl (8.5-10.1); CREATININE 0.84 mg/dl (0.60-1.20); POTASSIUM 4.1 mmol/L (3.5-5.1)
--- NOTE | 2017-10-04 13:16 | Hospitalist Progress Note ---
Hospitalist Progress Note Date of Service Oct 04, 2017. (Dipika Espino ., PA-C) Subjective Pt evaluation today including: conversation w/ patient, physical exam, lab review, review of inpatient medication list Voiding: no voiding problems Patient resting in bed. Still SOB but now on RA at rest and O2 with ambulation. Nurse stated patient walked to bathroom and became very SOB, O2 sats at 85% and wheezing. +cough. Eating and drinking OK. Patient denies any fever, chills, sweats, lightheadedness, dizziness, vision changes, CP, palpitations, edema, abdominal pain, nausea, vomiting, diarrhea, urinary symptoms, melena, numbness/tingling, weakness, muscle/joint pain, anxiety/depression, active bleeding, or new skin discoloration/changes. (Dipika Espino ., ZACHARY-C) Medications Current Inpatient Medications Medications (Trade) Dose Ordered Sig/Ramakrishna Route Start Time Stop Time Status Last Admin Dose Admin Acetaminophen (Tylenol Tab) 650 mg Q4H PRN PO 09/30/17 03:30 10/30/17 03:29 10/03/17 22:21 650 MG Al Hydrox/Mg Hydrox/Simethicone (Maalox Max Susp) 15 ml Q4H PRN PO 09/30/17 03:30 10/30/17 03:29 Magnesium Hydroxide (Milk Of Magnesia Susp) 30 ml Q12H PRN PO 09/30/17 03:30 10/30/17 03:29 10/01/17 11:18 30 ML Zolpidem Tartrate (Ambien Tab) 5 mg HSZ PRN PO 09/30/17 03:30 10/30/17 03:29 Nitroglycerin (Nitrostat Tab) 0.4 mg UD PRN SL 09/30/17 03:30 10/30/17 03:29 Polyethylene (Miralax Powder Packet) 17 gm DAILY PRN PO 09/30/17 03:30 10/30/17 03:29 Aspirin (Aspirin Chew) 81 mg DAILY PO 09/30/17 09:00 10/30/17 08:59 10/04/17 08:04 81 MG Duloxetine HCl (Cymbalta Cap) 30 mg QAM PO 09/30/17 09:00 10/30/17 08:59 10/04/17 08:02 30 MG Duloxetine HCl (Cymbalta Cap) 60 mg HS PO 09/30/17 21:00 10/30/17 20:59 10/03/17 20:26 60 MG Furosemide (Lasix Tab) 40 mg DAILY PO 09/30/17 09:00 10/30/17 08:59 10/04/17 08:03 40 MG Lorazepam (Ativan Tab) 0.5 mg BID PRN PO 09/30/17 03:30 10/30/17 03:29 Pantoprazole Sodium (Protonix Tab) 40 mg DAILY PO 09/30/17 09:00 10/30/17 08:59 10/04/17 08:02 40 MG Potassium Chloride (Klor-Con Tab) 20 meq DAILY PO 09/30/17 09:00 10/30/17 08:59 10/04/17 08:03 20 MEQ Ranitidine HCl (zANTac TAB) 150 mg BID PO 09/30/17 09:00 10/30/17 08:59 10/04/17 08:03 150 MG Fluticasone Propionate (Flonase Nasal [place]) 2 sprays BID NA 09/30/17 09:00 10/30/17 08:59 10/04/17 08:03 2 SPRAYS Nortriptyline HCl (Pamelor Cap) 75 mg HS PO 09/30/17 21:00 10/30/17 20:59 10/03/17 20:24 75 MG Guaifenesin (Mucinex Contr Rel Tab) 600 mg Q12 PO 09/30/17 09:00 10/30/17 08:59 10/04/17 08:02 600 MG Ipratropium [place] (Atrovent 0.02% 0.5MG/2.5ML Neb) 0.5 mg Q6R INH 09/30/17 09:00 10/30/17 08:59 10/04/17 07:36 0.5 MG Levalbuterol (Xopenex 1.25MG/ 0.5ML Neb) 1.25 mg Q6R INH 09/30/17 09:00 10/30/17 08:59 10/04/17 07:36 1.25 MG Ipratropium [place] (Atrovent 0.02% 0.5MG/2.5ML Neb) 0.5 mg Q2H PRN INH 09/30/17 04:00 10/30/17 03:59 09/30/17 23:55 0.5 MG Levalbuterol (Xopenex 1.25MG/ 0.5ML Neb) 1.25 mg Q2H PRN INH 09/30/17 04:00 10/30/17 03:59 09/30/17 23:55 1.25 MG Fexofenadine HCl (Lexii Tab) 180 mg HS PO 09/30/17 21:00 10/30/17 08:59 10/03/17 20:25 180 MG Atorvastatin Calcium (Lipitor Tab) 80 mg HS PO 09/30/17 21:00 10/30/17 08:59 10/03/17 20:25 80 MG Warfarin Sodium (Coumadin Tab) 5 mg HS PO 09/30/17 21:00 10/30/17 15:59 Future Hold 10/02/17 19:45 5 MG Insulin Aspart (novoLOG ASPART) SLIDING SCALE G... ACHS SC 09/30/17 16:15 10/30/17 16:14 10/02/17 20:23 2 UNITS Non-Formulary Medication (Non-Formulary Patient'S Own Med) 1 ea TID PRN EXT 10/01/17 05:00 10/31/17 04:59 Bisacodyl (Dulcolax Tab) 5 mg BID PRN PO 10/01/17 10:30 10/31/17 10:29 Levofloxacin (Levaquin Tab) 750 mg DAILY@0700 PO 10/03/17 07:00 10/06/17 06:59 10/04/17 06:28 750 MG Prednisone (PredniSONE TAB) 40 mg QAM PO 10/04/17 09:00 11/03/17 08:59 10/04/17 08:02 40 MG (Dipika Espino, KEVIN) Objective Vital Signs Date Time Temp Pulse Resp B/P (MAP) Pulse Ox O2 Delivery O2 Flow Rate FiO2 10/04/17 08:00 91 Room Air 10/04/17 07:37 91 15 95 Room Air 10/04/17 07:18 36.5 96 20 114/78 (90) 98 Nasal Cannula 2.0 10/04/17 02:05 99 16 95 Nasal Cannula 2.0 10/04/17 00:00 Nasal Cannula 2.0 10/03/17 23:07 36.6 105 18 128/84 (99) 92 Room Air 10/03/17 20:35 102 16 92 10/03/17 20:00 Nasal Cannula 2.0 10/03/17 16:00 96 Nasal Cannula 2.0 10/03/17 14:59 36.6 101 18 109/76 (87) 96 Nasal Cannula 2.0 10/03/17 14:21 105 16 96 Nasal Cannula 2.0 (Dipika Espino, PA-C) Physical Exam General Appearance: no apparent distress Eyes: normal inspection, PERRL ENT: hearing grossly normal Neck: supple Respiratory/Chest: lungs clear, no respiratory distress, no accessory muscle use, + decreased breath sounds (throughout ) Cardiovascular: regular rate, rhythm Abdomen: normal bowel sounds, non tender, soft Extremities: no pedal edema, no calf tenderness Neurologic/Psychiatric: alert, normal mood/affect, oriented x 3 Skin: normal color, warm/dry, no rash (Dipika Espino, PA-C) Laboratory Results Last 24 Hours Test 10/03/17 16:16 10/03/17 20:13 10/04/17 07:27 10/04/17 08:15 Bedside Glucose 130 mg/dl 152 mg/dl 123 mg/dl White Blood Count 22.93 K/uL Red Blood Count 4.37 M/uL Hemoglobin 12.3 g/dL Hematocrit 37.8 % Mean Corpuscular Volume 86.5 fL Mean Corpuscular Hemoglobin 28.1 pg Mean Corpuscular Hemoglobin Concent 32.5 g/dl RDW Standard Deviation 48.3 fL RDW Coefficient of Variation 15.2 % Platelet Count 333 K/uL Mean Platelet Volume 8.8 fL Prothrombin Time 52.6 SECONDS Prothromb Time International Ratio 5.2 Sodium Level 135 mmol/L Potassium Level 4.1 mmol/L Chloride Level 98 mmol/L Carbon Dioxide Level 31 mmol/L Anion Gap 6.0 mmol/L Blood Urea Nitrogen 21 mg/dl Creatinine 0.84 mg/dl Est Creatinine Clear Calc Drug Dose 82.3 ml/min Estimated GFR () 92.0 Estimated GFR (Non- 79.3 BUN/Creatinine Ratio 25.1 Random Glucose 110 mg/dl Calcium Level 8.2 mg/dl Test 10/04/17 11:19 Bedside Glucose 133 mg/dl (Dipika Espino PA-C) Assessment and Plan The patient is a 52-year-old female who presents to the emergency department with worsening shortness of breath, generalized body aches, headache and runny nose that began 2 days prior to arrival at the insistence of her daughter who is in attendance. She is exposed to 2 young grandchildren, and other family members who have been sick. She has a known history of COPD and has been using her nebulizers at home. She did not get a flu shot this year. Acute hypoxic respiratory failure, COPD exacerbation: - Admitted to tele for cardiac monitoring- no acute events, sinus tachycardia- transferred to med/surg - O2 protocol, wean as tolerated- does not wear O2 supplement at home- now on RA at rest and O2 w/ ambulation - Levaquin 750 mg daily- last day of treatment 10/05 - IV Solu Medrol- transitioned to Prednisone 40 mg daily and taper - DuoNebs QID and PRN for SOB/wheezing + incentive spirometer + flutter valve - Mucinex 600 mg BID - Influenza negative; sputum culture with normal neo - Leukocytosis, likely secondary to IV Steroids- now on PO, follow CBC - Repeat CXR today CAD, HTN, s/p mitral valve replacement with mechanical valve, s/p balloon mitral valvuloplasty: - Continue ASA 81 mg daily, Lasix 40 mg daily, KCL ER 20 mEq daily - Coumadin- adjust dose PRN for INR goal 2.5-3.5 Hyperlipidemia: Continue Atorvastatin 80 mg daily Constipation- RESOLVED: Continue Dulcolax and MiraLAX PRN Depression: Continue Duloxetine 30 mg in the morning and 60 mg at bedtime, Gabapentin 3 times daily, and Nortriptyline 75 mg at bedtime GERD: Continue Pantoprazole 40 mg daily and Ranitidine 150 mg BID DVT prophylaxis: Coumadin Code status: LEVEL I, FULL Dispo: Discharge to home once medically stable- hopefully tomorrow- may need 2 step prior to discharge (Dipika Espino PA-C) Supervising Note Dr. [place] I performed a history and physical examination on the patient. I reviewed above note and agree with it. I discussed plan with APC and patient. During my face to face encounter with the patient, I answered all of the patient's questions. (Power [place] M.D.)
--- NOTE | 2017-10-04 14:36 | DIAGNOSTIC IMAGING REPORT ---
CHEST ONE VIEW PORTABLE CLINICAL HISTORY: hypoxia dyspnea COMPARISON STUDY: 09/29/2017 FINDINGS: Prior median sternotomy. No evidence for cardiac enlargement. Chronic linear scarring left lung base. No focal infiltrate. IMPRESSION: Chronic and postoperative change. No acute process. The above report was generated using voice recognition software. It may contain grammatical, syntax or spelling errors. Electronically signed by: Chris Larson M.D. 10/04/2017 2:35 PM Dictated Date/Time: 10/04/2017 2:34 PM
[2017-10-04] MEDS ORDERED: MAGIC MOUTHWASH PO PRN (15:45)
[2017-10-04] MEDS: IPRATROPIUM BROMIDE HFA INHALER INH SCH (18:58)
[2017-10-04] MEDS: DEXAMETHASONE CONC SOLN 3.75 MG, NYSTATIN SUSP 30 ML, DiphenhydrAMINE HCL SYRUP 300 MG,... PO PRN ×5 (18:58)
[2017-10-04] MEDS: ATORVASTATIN 40 MG TAB PO SCH (20:38)
[2017-10-04] MEDS: DULOXETINE HCL 60 MG CAP PO SCH (20:39)
[2017-10-04] MEDS: FEXOFENADINE HCL 180 MG TAB PO SCH (20:40)
[2017-10-04] MEDS: NORTRIPTYLINE HCL 25 MG CAP PO SCH (20:40)
[2017-10-05 00:36] VITALS: BP 120/77; PULSE 107; TEMP 36.8; O2SAT 95
[2017-10-05] MEDS: IPRATROPIUM BROMIDE HFA INHALER INH SCH ×5 (03:18→23:58)
[2017-10-05] MEDS: LEVOFLOXACIN 750 MG TAB PO SCH (06:16)
[2017-10-05] MEDS: LEVALBUTEROL 1.25MG/0.5ML NEB INH PRN ×2 (06:18→09:47)
[2017-10-05 07:25] VITALS: O2SAT 95
[2017-10-05 07:28] LABS: HEMATOCRIT 39.1 % (37-47); HEMOGLOBIN 12.6 g/dL (12.0-16.0); MEAN CELL VOLUME 86.9 fL (80-100); MEAN CORPUSCULAR HGB CONC 32.2 g/dl (32-36); PLATELET COUNT 327 K/uL (130-400); RED CELL DISTRIBUTION WIDTH CV 15.3 % (11.5-14.5); WHITE BLOOD COUNT 22.09 K/uL (4.8-10.8)
[2017-10-05 07:35] LABS: INR 2.9 (0.9-1.1)
[2017-10-05 08:02] LABS: CALCIUM 8.3 mg/dl (8.5-10.1); CREATININE 0.92 mg/dl (0.60-1.20); POTASSIUM 4.1 mmol/L (3.5-5.1)
[2017-10-05] MEDS: INSULIN ASPART 100 UNITS/ML 3 ML PEN SC SCH ×4 (08:09→21:12)
[2017-10-05] MEDS: FLUTICASONE PROPIONATE NA SPR 16 GM BTL SCH ×2 (08:10→21:04)
[2017-10-05] MEDS: DULOXETINE (CYMBALTA) 30 MG CAP PO SCH (08:11)
[2017-10-05] MEDS: FUROSEMIDE 40 MG TAB PO SCH (08:12)
[2017-10-05] MEDS: POTASSIUM CHLORIDE 20 MEQ TABCR PO SCH (08:12)
[2017-10-05] MEDS: GUAIFENESIN 600 MG TABCR PO SCH ×2 (08:13→21:06)
[2017-10-05] MEDS: PANTOprazole SOD 40 MG TAB PO SCH (08:13)
[2017-10-05] MEDS: RANITIDINE HCL 150 MG TAB PO SCH ×2 (08:13→21:05)
[2017-10-05 08:38] VITALS: BP 135/88; PULSE 106; TEMP 36.5; O2SAT 96
[2017-10-05] MEDS: DEXAMETHASONE CONC SOLN 3.75 MG, NYSTATIN SUSP 30 ML, DiphenhydrAMINE HCL SYRUP 300 MG,... PO PRN ×10 (09:23→18:57)
[2017-10-05] MEDS: IPRATROPIUM BROMIDE NEB SOLN 0.02% 2.5 ML VIAL INH PRN (09:47)
[2017-10-05 09:48] VITALS: PULSE 120; O2SAT 95
[2017-10-05] MEDS ORDERED: ALBUTEROL HFA 8 GM INHALER INH PRN (10:45)
[2017-10-05] MEDS: ASPIRIN 81 MG CHEW PO SCH (11:38)
--- NOTE | 2017-10-05 13:47 | Hospitalist Progress Note ---
Hospitalist Progress Note Date of Service Oct 05, 2017. (Dipika Espino ., PA-C) Subjective Pt evaluation today including: conversation w/ patient, physical exam, lab review, review of studies, review of inpatient medication list Voiding: no voiding problems Patient sitting up in bed. +cough and SOB. Eating and drinking OK. Tried to do 2-step today- called by respiratory therapist, could not be completed due to patient feeling significantly SOB/wheezing after < 2 minutes of walking. Patient denies any fever, chills, sweats, lightheadedness, dizziness, vision changes, CP, palpitations, edema, wheezing, abdominal pain, nausea, vomiting, diarrhea, urinary symptoms, melena, numbness/tingling, weakness, muscle/joint pain, anxiety/depression, active bleeding, or new skin discoloration/changes. (Dipika Espino ., PA-C) Medications Current Inpatient Medications Medications (Trade) Dose Ordered Sig/Ramakrishna Route Start Time Stop Time Status Last Admin Dose Admin Acetaminophen (Tylenol Tab) 650 mg Q4H PRN PO 09/30/17 03:30 10/30/17 03:29 10/03/17 22:21 650 MG Al Hydrox/Mg Hydrox/Simethicone (Maalox Max Susp) 15 ml Q4H PRN PO 09/30/17 03:30 10/30/17 03:29 Magnesium Hydroxide (Milk Of Magnesia Susp) 30 ml Q12H PRN PO 09/30/17 03:30 10/30/17 03:29 10/01/17 11:18 30 ML Zolpidem Tartrate (Ambien Tab) 5 mg HSZ PRN PO 09/30/17 03:30 10/30/17 03:29 Nitroglycerin (Nitrostat Tab) 0.4 mg UD PRN SL 09/30/17 03:30 10/30/17 03:29 Polyethylene (Miralax Powder Packet) 17 gm DAILY PRN PO 09/30/17 03:30 10/30/17 03:29 Aspirin (Aspirin Chew) 81 mg DAILY PO 09/30/17 09:00 10/30/17 08:59 10/05/17 11:38 81 MG Duloxetine HCl (Cymbalta Cap) 30 mg QAM PO 09/30/17 09:00 10/30/17 08:59 10/05/17 08:11 30 MG Duloxetine HCl (Cymbalta Cap) 60 mg HS PO 09/30/17 21:00 10/30/17 20:59 10/04/17 20:39 60 MG Furosemide (Lasix Tab) 40 mg DAILY PO 09/30/17 09:00 10/30/17 08:59 10/05/17 08:12 40 MG Lorazepam (Ativan Tab) 0.5 mg BID PRN PO 09/30/17 03:30 10/30/17 03:29 Pantoprazole Sodium (Protonix Tab) 40 mg DAILY PO 09/30/17 09:00 10/30/17 08:59 10/05/17 08:13 40 MG Potassium Chloride (Klor-Con Tab) 20 meq DAILY PO 09/30/17 09:00 10/30/17 08:59 10/05/17 08:12 20 MEQ Ranitidine HCl (zANTac TAB) 150 mg BID PO 09/30/17 09:00 10/30/17 08:59 10/05/17 08:13 150 MG Fluticasone Propionate (Flonase Nasal [place]) 2 sprays BID NA 09/30/17 09:00 10/30/17 08:59 10/05/17 08:10 2 SPRAYS Nortriptyline HCl (Pamelor Cap) 75 mg HS PO 09/30/17 21:00 10/30/17 20:59 10/04/17 20:40 75 MG Guaifenesin (Mucinex Contr Rel Tab) 600 mg Q12 PO 09/30/17 09:00 10/30/17 08:59 10/05/17 08:13 600 MG Ipratropium [place] (Atrovent 0.02% 0.5MG/2.5ML Neb) 0.5 mg Q2H PRN INH 09/30/17 04:00 10/30/17 03:59 10/05/17 09:47 0.5 MG Levalbuterol (Xopenex 1.25MG/ 0.5ML Neb) 1.25 mg Q2H PRN INH 09/30/17 04:00 10/30/17 03:59 10/05/17 09:47 1.25 MG Fexofenadine HCl (Lexii Tab) 180 mg HS PO 09/30/17 21:00 10/30/17 08:59 10/04/17 20:40 180 MG Atorvastatin Calcium (Lipitor Tab) 80 mg HS PO 09/30/17 21:00 10/30/17 08:59 10/04/17 20:38 80 MG Warfarin Sodium (Coumadin Tab) 5 mg HS PO 09/30/17 21:00 10/30/17 15:59 Future Hold 10/02/17 19:45 5 MG Insulin Aspart (novoLOG ASPART) SLIDING SCALE G... ACHS SC 09/30/17 16:15 10/30/17 16:14 10/02/17 20:23 2 UNITS Non-Formulary Medication (Non-Formulary Patient'S Own Med) 1 ea TID PRN EXT 10/01/17 05:00 10/31/17 04:59 Bisacodyl (Dulcolax Tab) 5 mg BID PRN PO 10/01/17 10:30 10/31/17 10:29 Levofloxacin (Levaquin Tab) 750 mg DAILY@0700 PO 10/03/17 07:00 10/06/17 06:59 10/05/17 06:16 750 MG Prednisone (PredniSONE TAB) 40 mg QAM PO 10/04/17 09:00 11/03/17 08:59 10/05/17 08:13 40 MG Ipratropium [place] (Atrovent Hfa Inhaler) 2 puffs Q6 INH 10/04/17 18:00 11/03/17 17:59 10/05/17 12:06 2 PUFFS Dexamethasone/ Nystatin/ Diphenhydramine HCl/Sucrose/ Microcrystalline Cellulose/Barcode Q6H PRN PO 10/04/17 17:45 11/03/17 17:44 10/05/17 09:23 5 ML Albuterol (Ventolin Hfa Inhaler) 2 puffs Q4 PRN INH 10/05/17 10:45 11/04/17 10:44 Budesonide/ Formoterol Fumarate (Symbicort 160/ 4.5 Inh) 2 puffs BID INH 10/05/17 21:00 11/04/17 20:59 Miscellaneous Information (Order Awaiting Action) 1 ea QS N/A 10/05/17 16:00 11/04/17 15:59 (Dipika Espino, ZACHARY-C) Objective Vital Signs Date Time Temp Pulse Resp B/P (MAP) Pulse Ox O2 Delivery O2 Flow Rate FiO2 10/05/17 09:48 120 24 95 Room Air 10/05/17 08:38 36.5 106 20 135/88 (104) 96 Nasal Cannula 2.0 10/05/17 07:25 95 Nasal Cannula 2.0 10/05/17 00:36 36.8 107 19 120/77 (91) 95 Nasal Cannula 2.0 10/05/17 00:10 Room Air 2.0 10/04/17 16:00 91 Room Air 10/04/17 15:26 87 16 90 Room Air 10/04/17 15:00 36.8 101 18 143/85 (104) 93 Room Air (Dipika Espino, ZACHAYR-C) Physical Exam General Appearance: no apparent distress Eyes: normal inspection, PERRL ENT: hearing grossly normal Neck: supple Respiratory/Chest: lungs clear, no respiratory distress, no accessory muscle use, + decreased breath sounds (throughout ) Cardiovascular: regular rate, rhythm Abdomen: normal bowel sounds, non tender, soft Extremities: no pedal edema, no calf tenderness Neurologic/Psychiatric: alert, normal mood/affect, oriented x 3 Skin: normal color, warm/dry, no rash (Dipika Espino, ZACHARY-C) Laboratory Results Last 24 Hours Test 10/04/17 16:41 10/04/17 20:21 10/05/17 07:13 10/05/17 07:58 Bedside Glucose 157 mg/dl 149 mg/dl 97 mg/dl White Blood Count 22.09 K/uL Red Blood Count 4.50 M/uL Hemoglobin 12.6 g/dL Hematocrit 39.1 % Mean Corpuscular Volume 86.9 fL Mean Corpuscular Hemoglobin 28.0 pg Mean Corpuscular Hemoglobin Concent 32.2 g/dl RDW Standard Deviation 49.0 fL RDW Coefficient of Variation 15.3 % Platelet Count 327 K/uL Mean Platelet Volume 9.0 fL Prothrombin Time 29.4 SECONDS Prothromb Time International Ratio 2.9 Sodium Level 139 mmol/L Potassium Level 4.1 mmol/L Chloride Level 101 mmol/L Carbon Dioxide Level 34 mmol/L Anion Gap 4.0 mmol/L Blood Urea Nitrogen 20 mg/dl Creatinine 0.92 mg/dl Est Creatinine Clear Calc Drug Dose 75.2 ml/min Estimated GFR () 82.4 Estimated GFR (Non- 71.1 BUN/Creatinine Ratio 22.2 Random Glucose 78 mg/dl Calcium Level 8.3 mg/dl Test 10/05/17 11:06 10/05/17 11:27 Bedside Glucose 127 mg/dl Venous Blood pH 7.41 Venous Blood Partial Pressure CO2 55 mmHg Venous Blood Partial Pressure O2 20 mmHg Venous Blood HCO3 34 mmol/L Venous Blood Oxygen Saturation < 60.0 % Venous Blood Base Excess 7.4 mEq/L (Dipika Espino, KEVIN) Assessment and Plan The patient is a 52-year-old female who presents to the emergency department with worsening shortness of breath, generalized body aches, headache and runny nose that began 2 days prior to arrival at the insistence of her daughter who is in attendance. She is exposed to 2 young grandchildren, and other family members who have been sick. She has a known history of COPD and has been using her nebulizers at home. She did not get a flu shot this year. Acute hypoxic respiratory failure, COPD exacerbation: - Admitted to tele for cardiac monitoring- no acute events, sinus tachycardia- transferred to med/surg - O2 protocol, wean as tolerated- does not wear O2 supplement at home- now on RA at rest and O2 w/ ambulation - Levaquin 750 mg daily- last day of treatment 10/05 - IV Solu Medrol- transitioned to Prednisone 40 mg daily and taper - DuoNebs QID and PRN for SOB/wheezing + incentive spirometer + flutter valve - Mucinex 600 mg BID - Influenza negative; sputum culture with normal neo - Leukocytosis, likely secondary to IV Steroids- now on PO, follow CBC - Repeat CXR w/ no acute process - Consult pulmonary, appreciate recommendations CAD, HTN, s/p mitral valve replacement with mechanical valve, s/p balloon mitral valvuloplasty: - Continue ASA 81 mg daily, Lasix 40 mg daily, KCL ER 20 mEq daily - Coumadin- adjust dose PRN for INR goal 2.5-3.5 Hyperlipidemia: Continue Atorvastatin 80 mg daily Constipation- RESOLVED: Continue Dulcolax and MiraLAX PRN Depression: Continue Duloxetine 30 mg in the morning and 60 mg at bedtime, Gabapentin 3 times daily, and Nortriptyline 75 mg at bedtime GERD: Continue Pantoprazole 40 mg daily and Ranitidine 150 mg BID DVT prophylaxis: Coumadin Code status: LEVEL I, FULL Dispo: Discharge to home once medically stable (Dipika Espino, EBC) Supervising Note Dr. [place] I performed a history and physical examination on the patient. I reviewed above note and agree with it. I discussed plan with APC and patient. During my face to face encounter with the patient, I answered all of the patient's questions. (Power Colorado M.D.)
[2017-10-05] MEDS ORDERED: TIOTROPIUM BROMIDE 5 PUFF/90 MCG INH INH ONE (15:00)
[2017-10-05 15:05] VITALS: BP 118/82; PULSE 98; TEMP 37.1; O2SAT 95
[2017-10-05] MEDS ORDERED: METHYLPREDNISOLONE IV 30 MG in SYRINGE 0 ML IV ONE (15:30)
[2017-10-05 16:00] VITALS: O2SAT 95
--- NOTE | 2017-10-05 16:04 | DIAGNOSTIC IMAGING REPORT ---
(CHEST) THORAX WITHOUT CLINICAL HISTORY: 52 years-old Female presenting with COPD, Tobacco Hx. TECHNIQUE: Multidetector CT imaging of the chest was performed without the use of intravenous contrast. IV contrast: None. A dose lowering technique was used consistent with the principles of ALARA (as low as reasonably achievable). COMPARISON: Chest x-ray from 10/04/2017. CT DOSE (mGy.cm): The estimated cumulative dose is 671.57 mGy.cm. FINDINGS: Chain Tender topogram: Median sternotomy wires, prosthetic aortic valve, left atrial appendage occlusion device, and cholecystectomy clips noted. On soft tissue windows, normal thyroid and thoracic inlet. No axillary, supraclavicular, or mediastinal lymphadenopathy. Evaluation of the misha limited without intravenous contrast. Atherosclerosis of the aorta. Top normal size of the main pulmonary artery. Normal heart size. Coronary artery calcification. No pericardial or pleural effusion. Cholecystectomy clips. On lung windows, trace apical predominant emphysema. Respiratory artifact at the lung bases limits evaluation. Minimal tree-in-bud nodularity in the lateral right middle lobe (series 4 image 162). Mild bronchial wall thickening. Bandlike opacity at the left lung base likely atelectasis or scarring. Minimal layering debris in the trachea. On bone windows, normal osseous structures. IMPRESSION: 1. Trace apical emphysema and bronchial wall thickening likely smoking related lung injury. 2. Minimal tree-in-bud nodularity in the lateral right middle lobe. This may be infectious in etiology, however, the extent of the abnormality is highly limited. Attention on follow-up. Electronically signed by: Delfino Cotton M.D. 10/05/2017 4:03 PM Dictated Date/Time: 10/05/2017 3:58 PM
--- NOTE | 2017-10-05 19:00 | CONSULTATION REPORT ---
DATE OF CONSULTATION: 10/05/2017 REASON FOR CONSULTATION: COPD exacerbation. HISTORY OF PRESENT ILLNESS: The patient is a 52-year-old female who was admitted to [facility] on 09/30/2017 due to increased shortness of breath and some mild hypoxia. The patient states that her symptoms started about 2 days prior to this. She also had generalized body aches with this headache and runny nose. She had no fever or chills that she is aware of. No sweats. In the ER, she was worked up. She was found to be hypoxic initially at 88%, was started on 3 liters of oxygen and saturations did rebound nicely and she saturated in the mid to upper 90% range. She did have influenza titers done which were negative. She did have a sputum Gram stain and culture ordered. She was started on 2 liters of oxygen. Her Symbicort and Spiriva were held off. She was also started on levofloxacin 500 mg q. 24 hours, Solu-Medrol 60 mg q. 6, ceftriaxone given 1 dose as well as guaifenesin and Xopenex and Atrovent nebulizer q. 6 hours while awake. She had a chest x-ray which was essentially unremarkable. HOSPITAL COURSE: The patient had a very slow improvement. On 10/04/2017, a 2-step was done as patient had progressed to being on room air; however, when she did ambulate, her O2 sats did drop down into the mid to upper 80% range. She was also noted to have some increased wheezing. Because of this, pulmonary was consulted. She had a repeat chest x-ray done on the , which was unremarkable as well and showed no evidence of pneumonia. When I evaluated the patient today, she reported that she is very frustrated. She does feel that she is getting better. She states that her cough is improving. She is still coughing and bringing up a light yellow mucus. There was no blood in the mucus. She states that she has been having some nosebleeds, but she feels that this is secondary to the dryness in the ER using the oxygen. She has no chest heaviness, no chest discomfort. She has no pleuritic chest pain. She has had no palpitations or angina. She has had no fever during her stay. She has had no chills. She denies any sweats. She states that she knows she is not quite back to her baseline. She states that she thinks the further problem that her heart rate went up and she became a little bit short of breath when she did the 2 step yesterday was because she had not really gotten out of bed whole week and also she felt that someone was stabbing from her back. She has known lumbar disease and chronic pain which she follows with pain management for. In regards to her COPD, the patient had to followup with Dr. Malloy up until 2011. Then she stopped seeing Dr. Malloy and just followed with her PCP. At that time her forced vital capacity was 2.86 liters or 98%. Her FEV1 was 1.70 liters or 64%. Her FEV1/FVC ratio was 72% of predicted. Her residual volume was 3 liters or an 82% predicted. She did have a sleep study done in May of 2017, which showed no evidence of sleep apnea. She does have mitral valve disease having a mitral valve repair and replacement done in 2010 at [facility]. Her last echocardiogram was in 2016 that showed a normal left ventricle ejection fraction of 55-60%, no wall motion abnormalities, no left ventricular hypertrophy, right atrium and right ventricle were normal size, did show a sclerotic aortic valve with trace regurgitation. It showed a mechanical mitral valve which the patient is on Coumadin for currently. The patient did mention that when she had her valve replacement done apparently during the surgery somewhere in the right lung got nicked and she ended up with a pneumothorax requiring chest tube. The patient states that she is a former smoker with what looks like a 70 pack year history. She smoked 2 packs a day for approximately 35 years. She quit 7 years ago. Her home medications include Spiriva, Combivent, albuterol. She had a nebulizer that she bought secondhand but was not really using it. She currently is not using oxygen at home. The patient feels that a big part of her difficulty with yesterday again was secondary to her immobility through the week. She is feeling better today. PAST MEDICAL HISTORY: Includes COPD, hyperlipidemia, gastroesophageal reflux disease, depression, aortic valve disease, mitral valve disease with replacement, hypertension and coronary artery disease. PAST SURGICAL HISTORY: Includes a mitral valve replacement and bypass in 2010. FAMILY HISTORY: Includes diabetes mellitus and coronary artery disease. SOCIAL HISTORY: The patient is a former smoker having quit 7 years ago with a [id number] smoking history. No alcohol use. The patient apparently lives with her daughter and grandchildren. HOME MEDICATIONS: As per hospitalist history and physical. ALLERGIES: Include no known allergies. REVIEW OF SYSTEMS: As above, otherwise unremarkable. PHYSICAL EXAMINATION: GENERAL: The patient is a 52-year-old female who does look older than stated age. She is alert and oriented x3. Mood is good. Affect is good. She does not have dyspnea with conversation. VITAL SIGNS: Temp 36.5, pulse 106, respiration 20, blood pressure is 135/88, pulse ox 95% on room air currently. HEENT: Normocephalic, atraumatic. Pupils equal, round and reactive to light and accommodation. Extraocular movements are intact. [place] moist gingival and buccal mucosa. NECK: Short, thick, no mass. No adenopathy. No bruit. CHEST: The patient does have some wheezing in the right middle lobe area, does transmit throughout. No rales noted. No rhonchi noted. CARDIOVASCULAR: Regular rate and rhythm. Mechanical click heard. No gallops noted. ABDOMEN: Bowel sounds are present. Abdomen soft, nontender. No guarding, rigidity or organomegaly. EXTREMITIES: No erythema or edema. NEUROLOGIC: Cranial nerves II through XII grossly intact. No focal deficit noticed. LABORATORY DATA: Shows current white count of 22,000, H&H 12.6 and 39.1. Venous blood gas shows a pH of 7.41, CO2 of 55 these translate to a pH of 7.44 on ABG and a CO2 of 45 on ABG. INR is therapeutic at 2.9. Influenza negative. Sputum culture showing light normal neo. Chest x-ray yesterday showing no evidence of pneumonia. IMPRESSION: 1. This is a 52-year-old female with what appears to be a chronic obstructive pulmonary disease exacerbation. At this point, I think that part of her difficulty yesterday was imparted from being sedentary earlier in the week. I did advise the patient to get up and move around. I think this is going to be helpful to mobilize secretions. I encouraged her to continue to use her incentive spirometer and flutter valve. At this point with a history of the pneumothorax on the right as well as the adventitious breath sounds on the right, I would like to get a CAT scan to make sure there is nothing else going on. I would like for the patient to have her Spiriva restarted and would like for her to have a 2-step done today so if we do need to arrange oxygen we can get that arranged. In all reality, I think the patient very likely is going to be able to be discharged to home tomorrow unless something unusual shows up on the imaging. 2. History of valve replacement. The patient is stable. 3. Coronary artery disease, the patient is stable, I did not think that the patient's current problems are cardiac in nature. The case was discussed with Dr. Gonzales. He will most likely see the patient tomorrow. If the patient is stable tomorrow, I see no reason why she cannot be discharged. I did offer the patient that we would see her in the office in followup if she so chooses. Patient seen, examined and agree with plan of care. KIMMY
[2017-10-05] MEDS: BUDESONIDE/FORMOTEROL FUMARATE 160/4.5 60 PUFFS/INHALER INH SCH (21:05)
[2017-10-05] MEDS: NORTRIPTYLINE HCL 25 MG CAP PO SCH (21:06)
[2017-10-05] MEDS: WARFARIN SOD 5 MG TAB PO SCH (21:07)
[2017-10-05] MEDS: FEXOFENADINE HCL 180 MG TAB PO SCH (21:07)
[2017-10-05] MEDS: DULOXETINE HCL 60 MG CAP PO SCH (21:08)
[2017-10-05] MEDS: ATORVASTATIN 40 MG TAB PO SCH (21:08)
[2017-10-06 00:07] VITALS: BP 108/71; PULSE 91; TEMP 36.6; O2SAT 90
[2017-10-06] MEDS: INSULIN ASPART 100 UNITS/ML 3 ML PEN SC SCH ×3 (06:30→16:30)
[2017-10-06 07:03] VITALS: BP 139/88; PULSE 89; TEMP 36.5; O2SAT 94
[2017-10-06 08:06] LABS: HEMATOCRIT 40.3 % (37-47); HEMOGLOBIN 12.9 g/dL (12.0-16.0); MEAN CELL VOLUME 87.2 fL (80-100); MEAN CORPUSCULAR HEMOGLOBIN 27.9 pg (25-34); MEAN PLATELET VOLUME 9.2 fL (7.4-10.4); PLATELET COUNT 370 K/uL (130-400); RED CELL DISTRIBUTION WIDTH CV 15.4 % (11.5-14.5); RED CELL DISTRIBUTION WIDTH SD 48.9 fL (36.4-46.3); WHITE BLOOD COUNT 27.56 K/uL (4.8-10.8)
[2017-10-06 08:12] LABS: INR 1.8 (0.9-1.1)
[2017-10-06] MEDS: FLUTICASONE PROPIONATE NA SPR 16 GM BTL SCH (08:25)
[2017-10-06] MEDS: BUDESONIDE/FORMOTEROL FUMARATE 160/4.5 60 PUFFS/INHALER INH SCH (08:25)
[2017-10-06] MEDS: DULOXETINE (CYMBALTA) 30 MG CAP PO SCH (08:26)
[2017-10-06] MEDS: FUROSEMIDE 40 MG TAB PO SCH (08:26)
[2017-10-06] MEDS: GUAIFENESIN 600 MG TABCR PO SCH (08:26)
[2017-10-06] MEDS: PANTOprazole SOD 40 MG TAB PO SCH (08:26)
[2017-10-06] MEDS: POTASSIUM CHLORIDE 20 MEQ TABCR PO SCH (08:26)
[2017-10-06 08:32] LABS: CALCIUM 8.4 mg/dl (8.5-10.1); CREATININE 0.9 mg/dl (0.60-1.20); POTASSIUM 4.5 mmol/L (3.5-5.1)
[2017-10-06] MEDS: DEXAMETHASONE CONC SOLN 3.75 MG, NYSTATIN SUSP 30 ML, DiphenhydrAMINE HCL SYRUP 300 MG,... PO PRN ×5 (08:51)
[2017-10-06] MEDS ORDERED: TIOTROPIUM BROMIDE 5 PUFF/90 MCG INH INH SCH (09:00)
[2017-10-06] MEDS: ASPIRIN 81 MG CHEW PO SCH (10:12)
[2017-10-06] MEDS: RANITIDINE HCL 150 MG TAB PO SCH (10:12)
[2017-10-06] MEDS: ACETAMINOPHEN 325 MG TAB PO PRN (13:17)
[2017-10-06 15:51] VITALS: BP 129/85; PULSE 93; TEMP 36.5; O2SAT 95
[2017-10-06] MEDS ORDERED: GFNSR600 PO (16:19)
[2017-10-06] MEDS ORDERED: PRED5PAK3 PO (16:19)
[2017-10-06 16:27] VITALS: BP 129/85; PULSE 93; TEMP 36.5; O2SAT 95
--- NOTE | 2017-10-06 16:28 | Discharge Instructions ---
Discharge Instructions Date of Service Oct 06, 2017. Admission Reason for Admission: 1. Acute Respiratory Failure W/ Hypoxia. 2. COPD exacerbation. 3. COPD Discharge Discharge Diagnosis / Problem: Acute Respiratory Failure, COPD Exacerbation. Discharge Goals Goal(s): Improve function, Improve disease control, Therapeutic intervention Activity Recommendations Activity Limitations: resume your previous activity Lifting Limitations: gradually increase as tolerated Exercise/Sports Limitations: gradually increase as tolerated May Resume Sexual Activity: when tolerated Shower/Bathe: no limitations Driving or Machine Use: no limitations . Instructions / Follow-Up Instructions / Follow-Up 1. Take Prednisone taper as directed. 2. Continue current dose of Warfarin. 3. Recheck Protime / INR on Sunday10/08/2017. 4. Call [facility] Dept. of Pulmonology and schedule follow up appointment in the next 5 to 7 days. Current Hospital Diet Patient's current hospital diet: AHA Diet (Heart Healthy) Discharge Diet Recommended Diet: AHA Diet (Heart Healthy) Fluid Restriction: None Pending Studies Studies pending at discharge: no Laboratory Results Test 09/29/17 00:00 09/29/17 23:30 09/30/17 09:25 09/30/17 12:46 Influenza Type A Antigen Neg for Influ A Influenza Type B Antigen Neg for Influ B PTT 49.7 Partial Thromboplastin Ratio 1.9 Troponin I < 0.015 Chemistry Specimen Hemolysis Hepatitis C Antibody Screen NEG Influenza Type A (RT-PCR) Neg for Influ A Influenza Type B (RT-PCR) Neg for Influ B Immature Granulocyte % (Auto) 0.5 White Blood Count 13.32 Red Blood Count 4.23 Hemoglobin 11.8 Hematocrit 36.8 Mean Corpuscular Volume 87.0 Mean Corpuscular Hemoglobin 27.9 Mean Corpuscular Hemoglobin Concent 32.1 Platelet Count 282 Mean Platelet Volume 9.7 Neutrophils (%) (Auto) 91.2 Lymphocytes (%) (Auto) 6.1 Monocytes (%) (Auto) 2.1 Eosinophils (%) (Auto) 0.0 Basophils (%) (Auto) 0.1 Neutrophils # (Auto) 12.15 Lymphocytes # (Auto) 0.81 Monocytes # (Auto) 0.28 Eosinophils # (Auto) 0.00 Basophils # (Auto) 0.01 Immature Granulocyte # (Auto) 0.07 Test 10/01/17 06:04 10/05/17 07:13 10/05/17 11:27 10/06/17 07:28 Immature Granulocyte % (Auto) 0.6 White Blood Count 21.72 22.09 27.56 Red Blood Count 4.28 4.50 4.62 Hemoglobin 12.1 12.6 12.9 Hematocrit 37.6 39.1 40.3 Mean Corpuscular Volume 87.9 86.9 87.2 Mean Corpuscular Hemoglobin 28.3 28.0 27.9 Mean Corpuscular Hemoglobin Concent 32.2 32.2 32.0 Platelet Count 323 327 370 Mean Platelet Volume 9.6 9.0 9.2 Neutrophils (%) (Auto) 84.9 Lymphocytes (%) (Auto) 7.1 Monocytes (%) (Auto) 7.3 Eosinophils (%) (Auto) 0.0 Basophils (%) (Auto) 0.1 Neutrophils # (Auto) 18.44 Lymphocytes # (Auto) 1.55 Monocytes # (Auto) 1.58 Eosinophils # (Auto) 0.00 Basophils # (Auto) 0.02 Immature Granulocyte # (Auto) 0.13 Magnesium Level 2.4 RDW Standard Deviation 49.0 48.9 RDW Coefficient of Variation 15.3 15.4 Prothrombin Time 29.4 18.8 Prothrombin Time INR 2.9 1.8 Sodium Level 139 137 Potassium Level 4.1 4.5 Chloride Level 101 99 Carbon Dioxide Level 34 33 Anion Gap 4.0 5.0 Blood Urea Nitrogen 20 19 Creatinine 0.92 0.90 Est Creatinine Clear Calc Drug Dose 75.2 76.9 Estimated GFR () 82.4 84.6 Estimated GFR (Non- 71.1 73.0 BUN/Creatinine Ratio 22.2 20.6 Random Glucose 78 87 Calcium Level 8.3 8.4 Venous Blood pH 7.41 Venous Blood Partial Pressure CO2 55 Venous Blood Partial Pressure O2 20 Venous Blood HCO3 34 Venous Blood Oxygen Saturation < 60.0 Venous Blood Base Excess 7.4 Test 10/06/17 07:38 10/06/17 11:31 POC Glucose 87 120 Work Instructions Return To Work: after follow-up Lifting Limitations: none Medical Emergencies . Who to Call and When: Medical Emergencies: If at any time you feel your situation is an emergency, please call 911 immediately. . Non-Emergent Contact Non-Emergency issues call your: Primary Care Provider Call Non-Emergent contact if: you have a fever, you have any medication questions If breathing status worsens. . Past History Medical & Surgical History: (1) COPD (chronic obstructive pulmonary disease) (2) COPD exacerbation (3) Hypoxia (4) Acute respiratory failure with hypoxia (5) Asthma (6) Hypertension (7) CAD (coronary artery disease) (8) Diabetes mellitus (9) History of mitral valve replacement with mechanical valve . "Provider Documentation" section prepared by Zaire Lima. . VTE Core Measure Inpt VTE Proph given/why not?: Warfarin (Coumadin)
[2017-10-11] MEDS ORDERED: AZITTAB PO (11:15)
--- NOTE | 2017-10-12 16:37 | DISCHARGE SUMMARY ---
HOSPITALIST DISCHARGE SUMMARY ADMITTING DIAGNOSES: 1. Shortness of breath. 2. Chronic obstructive pulmonary disease exacerbation. DISCHARGE DIAGNOSES: 1. Chronic obstructive pulmonary disease exacerbation. 2. Acute hypoxic respiratory failure. SECONDARY DIAGNOSES: 1. History of mitral valve disease status post mechanical [address] [place] MVR 2010. 2. Coronary artery disease status post coronary artery bypass graft x1 vessel, 2010 (SVG to RCA, residual LCX disease). 3. Dyslipidemia. 4. Prediabetes. 5. Anxiety. 6. Allergic rhinitis. 7. Abdominal aortic atherosclerosis. 8. Chronic anticoagulation. 9. History of depression. 10. Secondary mitral valvular insufficiency. 11. History of tobacco use. HOSPITAL COURSE: Mrs. Gerard is a very pleasant 52-year-old white female who was admitted acutely on 09/29/2017 complaining of increased shortness of breath, wheezing, body aches, headache, runny nose and she was noted to be hypoxic with an initial SpO2 of 88%. She was started on 3 liters oxygen via nasal cannula and her saturations came up to the mid to upper 90 percentile range. She did have influenza titers which were negative. Sputum Gram stain culture was ordered. The patient was started empirically on IV levofloxacin 500 mg q. 24 hours, ceftriaxone 1 gram IV, Solu-Medrol 60 mg IV q. 6 hours, Xopenex, and Atrovent nebulizers as well as guaifenesin. The patient had gradual improvement on this regimen. On 10/04/2017, a 2-step test was done, and it showed hypoxia with exertion. However, if she was sitting quietly, her O2 saturations remained compensated. She was also noted to have increased wheezing on that day. Pulmonology was consulted, and a repeat chest x-ray was done which showed no evidence of pneumonia. After being seen by pulmonology, patient was encouraged to use her incentive spirometer and a flutter valve. A CT scan was done and trace apical emphysema and bronchial wall thickening was noted, along with a minimal "tree-in-bud nodularity" in the lateral right middle lobe, strongly suspicious that it was infectious in etiology. As her symptomatology resolved, and she was able to maintain her O2 saturations, the patient was subsequently discharged to home on 10/06/2017 with a prednisone taper, and instructions to continue her usual inhalers. Additionally, she was sent home with Mucinex extended release 600 mg b.i.d. as an expectorant. Arrangements were made for followup with Hair Sigala PA-C in pulmonology. DISCHARGE MEDICATIONS: 1. Sterapred DS 12-day pack. 2. Guaifenesin extended release 600 mg b.i.d. 3. Albuterol HFA 2 puffs p.o. every 4 hours as needed for shortness of breath or wheezing. 4. Aspirin 81 mg daily. 5. Lipitor 80 mg daily. 6. Symbicort 160/4.5 two puffs b.i.d. 7. Cymbalta 60 mg daily at bedtime. 8. Cymbalta 30 mg daily in the morning. 9. Lexii 180 mg daily. 10. Lasix 40 mg daily. 11. Gabapentin 1 powder packet 3 times a day. 12. Ibuprofen 200 mg 1-3 tablets every 4 hours as needed for pain or fever. 13. Atrovent nebulizer solution. 14. Lorazepam 0.5 mg every day p.r.n. for anxiety. 15. Mometasone furoate nasal spray 2 sprays in each nostril twice a day. 16. Nortriptyline 75 mg at bedtime. 17. Protonix 40 mg daily. 18. KCl 20 mEq daily. 19. Ranitidine 150 mg b.i.d. 20. Spiriva Respimat 1.25 mcg 2 puffs daily. 21. Coumadin for goal INR of 2.5-3.5. ALLERGIES: NKDA. PROCEDURES: 1. Serial chest x-rays. 2. EKG. 3. CT scan of the chest. 4. Nebulizer treatments. 5. IV antibiotics and IV corticosteroids. 6. Supplemental oxygen. LABORATORY DATA: White blood cell count at time of discharge was 27.56 with hemoglobin 12.9 g/dL, hematocrit 40.3%, and platelet count 370,000. PT/INR 3.0 on admission, peaked at 5.3, and was down to 1.8 at time of discharge. Chemistries showed sodium 137 mmol/L, potassium 4.5 mmol/L, BUN 19 mg/dL, creatinine 0.90 mg/dL. Troponin I level on 09/29/2017 was less than 0.015 ng/mL. Influenza A and influenza B were both negative. Gram stain showed a few gram positive cocci in chains, many WBCs, and rare epithelial cells. The culture grew out light normal neo. DISCHARGE INSTRUCTIONS. 1. Take medications as directed. 2. Continue current dose of warfarin, recheck protime INR on 10/08/2017. 3. Continue inhalers and nebulizers as directed. 4. Take Sterapred DS 12-day taper pack. 5. Contact [facility] Department of pulmonology to schedule followup appointment within the next 5-7 days with Hair Sigala PA-C. 6. Discharged to home on AHA heart-healthy diet. 7. The patient will also schedule follow up with her PCP.
== END 2017-10-06 19:00 | disposition home or self-care (01) | DRG 190 ==
LOC: C.EDB 23:05 → C.2T 09-30 03:11 → ENRESERV 09-30 03:33 → C.MS2W 10-01 20:25
PROVIDERS: ADMIT Hospitalist; ATTEND Internal Medicine Sports Medicine
DX: J44.1 Chronic obstructive pulmonary disease with (acute) exacerbation (principal); J96.01 Acute respiratory failure with hypoxia; F32.9 Major depressive disorder, single episode, unspecified; R73.03 Prediabetes; K21.9 Gastro-esophageal reflux disease without esophagitis; Z95.2 Presence of prosthetic heart valve; E78.5 Hyperlipidemia, unspecified; I70.0 Atherosclerosis of aorta; I10 Essential (primary) hypertension; Z79.82 Long term (current) use of aspirin; Z79.01 Long term (current) use of anticoagulants; I25.10 Atherosclerotic heart disease of native coronary artery without angina pectoris; Z95.1 Presence of aortocoronary bypass graft; Z87.891 Personal history of nicotine dependence; K59.00 Constipation, unspecified; Z83.3 Family history of diabetes mellitus

== ENCOUNTER → 2017-10-16 | Outpatient (CLI) | payer BC ==
[~2017-10-16] MED LIST changes: -ALBU1AER9 INH; -ALL180 PO; -ATRIN INH; +ATRINSX NEB; +AZITTAB PO; +FEXO1TAB46 PO; -FURO-85 PO; +GABA10PO PO; +GFNSR600 PO; -HYDC25 PO; +LORA-741 PO; +LSX40 PO; -MOME50SP5; +MOME6000 NAE; +NRT75 PO; -OXYC-57 PO; -POTA-335 PO; +POTA20TA13 PO; +PRED5PAK3 PO; +RANI150T85 PO; -SIMV20TA2 PO; +TIOT1AER2 INH; -VENTILIN INH; +VNTHFA/IN INH
[2017-10-16 12:20] LABS: BASO % 0.1 %; BASO ABS # 0.01 K/uL (0-0.2); EOS % 0.2 %; EOS ABS # 0.03 K/uL (0-0.5); HEMATOCRIT 41.2 % (37-47); HEMOGLOBIN 12.9 g/dL (12.0-16.0); IG# 0.13 K/uL (0.00-0.02); LYMPH % 12.9 %; LYMPH ABS # 2.31 K/uL (1.2-3.4); MEAN CELL VOLUME 89.6 fL (80-100); MEAN CORPUSCULAR HGB CONC 31.3 g/dl (32-36); MEAN PLATELET VOLUME 9.3 fL (7.4-10.4); MONO % 8.9 %; MONO ABS # 1.59 K/uL (0.11-0.59); NEUT % 77.2 %; NEUT ABS # 13.84 K/uL (1.4-6.5); PLATELET COUNT 322 K/uL (130-400); RED CELL DISTRIBUTION WIDTH CV 16.6 % (11.5-14.5); RED CELL DISTRIBUTION WIDTH SD 54.2 fL (36.4-46.3); WHITE BLOOD COUNT 17.91 K/uL (4.8-10.8)
== END | disposition home or self-care (01) ==
LOC: C.LABBFT 10:02
PROVIDERS: ATTEND Physician Assistant Medical
DX: D72.829 Elevated white blood cell count, unspecified (principal)

== ENCOUNTER → 2017-10-23 | Outpatient (CLI) | payer BC ==
--- NOTE | 2017-10-23 13:21 | DIAGNOSTIC IMAGING REPORT ---
CHEST 2 VIEWS ROUTINE CLINICAL HISTORY: R06.02 Shortness of [id number] dyspnea COMPARISON STUDY: 10/04/2017 FINDINGS: Platelike atelectasis left base. Lungs are considered clear with no focal infiltrative process. Findings of prior median sternotomy. Diaphragms smooth. No focal infiltrate. IMPRESSION: Chronic change. Minimal atelectasis left base. Otherwise negative study. The above report was generated using voice recognition software. It may contain grammatical, syntax or spelling errors. Electronically signed by: Chris Larson M.D. 10/23/2017 1:19 PM Dictated Date/Time: 10/23/2017 1:17 PM
== END | disposition home or self-care (01) ==
LOC: C.RAD1850 12:59
PROVIDERS: ATTEND Physician Assistant
DX: R06.02 Shortness of breath (principal)

== ENCOUNTER → 2017-10-30 | Outpatient (CLI) | payer BC ==
[2017-10-30 12:33] LABS: HEMATOCRIT 40.7 % (37-47); HEMOGLOBIN 13.3 g/dL (12.0-16.0); MEAN CELL VOLUME 87.5 fL (80-100); MEAN CORPUSCULAR HEMOGLOBIN 28.6 pg (25-34); MEAN CORPUSCULAR HGB CONC 32.7 g/dl (32-36); MEAN PLATELET VOLUME 9.4 fL (7.4-10.4); PLATELET COUNT 335 K/uL (130-400); RED CELL DISTRIBUTION WIDTH CV 16.8 % (11.5-14.5); RED CELL DISTRIBUTION WIDTH SD 53.1 fL (36.4-46.3); WHITE BLOOD COUNT 17.42 K/uL (4.8-10.8)
[2017-10-30 13:22] LABS: BASO % 0.2 %; BASO ABS # 0.04 K/uL (0-0.2); EOS % 0.1 %; EOS ABS # 0.02 K/uL (0-0.5); IG# 1.06 K/uL (0.00-0.02); LYMPH % 29.2 %; LYMPH ABS # 5.08 K/uL (1.2-3.4); MONO % 10.3 %; MONO ABS # 1.79 K/uL (0.11-0.59); NEUT % 54.1 %; NEUT ABS # 9.43 K/uL (1.4-6.5)
== END | disposition home or self-care (01) ==
LOC: C.LABBFT 09:17
PROVIDERS: ATTEND Physician Assistant Medical
DX: D72.829 Elevated white blood cell count, unspecified (principal)

== ENCOUNTER → 2017-11-21 | Outpatient (CLI) | payer BC ==
[~2017-11-21] MED LIST changes: +NORT50CA PO; +PSEU60TA80 PO
--- NOTE | 2017-11-21 11:10 | DIAGNOSTIC IMAGING REPORT ---
CHEST 2 VIEWS ROUTINE CLINICAL HISTORY: Hypoxia. COMPARISON STUDY: Chest CT October 05, 2017 and chest radiograph November 02, 2017. FINDINGS: Note is made of median sternotomy wires and prosthetic mitral valve. Cardiomediastinal silhouette is stable. There is no pneumothorax or pleural effusion. No consolidation is noted. There is no evidence for pulmonary edema. There may be underlying emphysema. IMPRESSION: No acute cardiopulmonary findings. Electronically signed by: Murali Nguyen M.D. 11/21/2017 11:09 AM Dictated Date/Time: 11/21/2017 11:07 AM
== END | disposition home or self-care (01) ==
LOC: C.RAD1850 10:55
PROVIDERS: ATTEND Physician Assistant
DX: R09.02 Hypoxemia (principal)

== ENCOUNTER → 2017-11-29 | Outpatient (CLI) | payer BC ==
[~2017-11-29] MED LIST changes: -AZITTAB PO; -CYM/30 PO; -GABA10PO PO; -GFNSR600 PO; -NRT75 PO; -PRED5PAK3 PO
[2017-11-29 12:37] LABS: BASO % 0.3 %; BASO ABS # 0.05 K/uL (0-0.2); EOS % 0.4 %; EOS ABS # 0.06 K/uL (0-0.5); HEMATOCRIT 36.4 % (37-47); HEMOGLOBIN 11.5 g/dL (12.0-16.0); LYMPH % 15.9 %; LYMPH ABS # 2.38 K/uL (1.2-3.4); MEAN CELL VOLUME 89.7 fL (80-100); MEAN CORPUSCULAR HEMOGLOBIN 28.3 pg (25-34); MEAN CORPUSCULAR HGB CONC 31.6 g/dl (32-36); MEAN PLATELET VOLUME 9.5 fL (7.4-10.4); MONO % 8.1 %; MONO ABS # 1.21 K/uL (0.11-0.59); NEUT % 73.3 %; NEUT ABS # 10.95 K/uL (1.4-6.5); PLATELET COUNT 353 K/uL (130-400); RED CELL DISTRIBUTION WIDTH CV 17.2 % (11.5-14.5); RED CELL DISTRIBUTION WIDTH SD 56.4 fL (36.4-46.3); WHITE BLOOD COUNT 14.95 K/uL (4.8-10.8)
[2017-11-29 13:07] LABS: HEMOGLOBIN A1C 5.8 % (4.5-5.6)
[2017-11-29 13:11] LABS: ALBUMIN 3.3 gm/dl (3.4-5.0); ALT/SGPT 40 U/L (12-78); AST/SGOT 35 U/L (15-37); BLOOD UREA NITROGEN 17 mg/dl (7-18); CALCIUM 8.5 mg/dl (8.5-10.1); CARBON DIOXIDE 27 mmol/L (21-32); CREATININE 0.83 mg/dl (0.60-1.20); GLUCOSE 98 mg/dl (70-99); POTASSIUM 4.3 mmol/L (3.5-5.1); SODIUM 137 mmol/L (136-145)
[2017-11-29 13:16] LABS: ALKALINE PHOSPHATASE 109 U/L (45-117); CHOLESTEROL 163 mg/dl (0-200); LDL CHOLESTEROL CALCULATED 90 mg/dl; TOTAL PROTEIN 6.4 gm/dl (6.4-8.2)
== END | disposition home or self-care (01) ==
LOC: C.LABBFT 10:32
PROVIDERS: ATTEND Internal Medicine
DX: D72.829 Elevated white blood cell count, unspecified (principal); E78.5 Hyperlipidemia, unspecified; R73.01 Impaired fasting glucose

== ENCOUNTER 2019-04-13 16:50 | Inpatient (IN) ==
[2019-04-13] MEDS ORDERED: ALBUT/IPRATROP 3MG/0.5MG NEB 3 ML VIAL INH STA (17:28)
[2019-04-13] MEDS ORDERED: SODIUM CHLORIDE 0.9% 1000ML 500 ML IV ONE (17:34)
[2019-04-13] MEDS ORDERED: ACETAMINOPHEN 1,000 MG/100 ML VIAL IV STA (17:34)
--- NOTE | 2019-04-13 17:51 | Emergency Department Note ---
Entered by Daily Peres acting as a scribe for Deepak Bond MD History of Present Illness General Chief complaint: Vomiting Stated complaint: VOMITING WITH BLOOD,HEADACHE,BACK ACHE Time Seen by Provider: 04/13/19 17:21 Source: patient Mode of arrival: ambulatory Limitations: no limitations History of Present Illness Provider complaint: Hemoptysis Onset (ago): day(s) 3 Location: mouth Radiation: non-radiation Pain Consistency: + other (worsening) Maximum Pain Intensity: 9 Quality: + other (hemoptysis) Relieved By: + none Associated symptoms: + chest pain (secondary to cough), + diaphoresis, + headaches, + nausea/vomiting (positive nausea, negative vomiting), + shortness of breath and + other (Additional symptoms: wheeziness, leg swelling, posterior neck pain radiating to head. Denies: diarrhea) The patient is a 54 year old female with a history of COPD, bronchitis, a mechanical mitral valve, and arthritis who presents to the Emergency Room with complaints of worsening hemoptysis starting 3 days ago. The patient reports that she has been coughing up bloody mucus. She states that she started taking Prednisone and Levaquin 3 days ago as prescribed by Mr. Sigala over the phone because he suspected that she had bronchitis. Since then, the patient notes that she has experienced diaphoresis, shortness of breath, increased wheeziness, leg swelling, chest pain secondary to coughing, nausea, and posterior neck pain that radiates up to her head. She adds that she has also had more headaches lately, possibly secondary to stress. She further reports that she normally uses 3L O2 only at night but has been using oxygen during the day as well lately for her worsening shortness of breath. She denies any diarrhea and vomiting. The patient states that she took 4 doses of Advil and 2 doses of Tylenol for her symptoms today. She notes that she is on Coumadin. Home Medications Home Medications Medication Instructions Recorded Confirmed Type albuterol sulfate 2 puff INHALATION Q4H PRN 04/13/19 04/13/19 History aspirin [Aspir-81] 81 mg PO DAILY 04/13/19 04/13/19 History atorvastatin [Lipitor] 80 mg PO HS 04/13/19 04/13/19 History cyclobenzaprine 5 mg PO TID PRN 04/13/19 04/13/19 History duloxetine [Cymbalta] 60 mg PO BID 04/13/19 04/13/19 History crddoryzbej-bsuuptdzm-jypdsxzl 1 inh INHALATION QAM 04/13/19 04/13/19 History [Trelegy Ellipta] furosemide [Lasix] 40 mg PO QAM 04/13/19 04/13/19 History hydrocodone-acetaminophen [Lorcet 1 tab PO BID PRN 04/13/19 04/13/19 History (hydrocodone)] ibuprofen 800 mg PO BID PRN 04/13/19 04/13/19 History ipratropium bromide 2.5 ml INHALATION QID PRN 04/13/19 04/13/19 History levofloxacin [Levaquin] 500 mg PO QAM 04/13/19 04/13/19 History lorazepam [Ativan] 0.5 mg PO BID PRN 04/13/19 04/13/19 History mometasone 2 spray INTRANASAL BID 04/13/19 04/13/19 History nortriptyline [Pamelor] 50 mg PO HS 04/13/19 04/13/19 History pantoprazole [Protonix] 40 mg PO QAM 04/13/19 04/13/19 History potassium chloride [Klor-Con M20] 20 meq PO QAM 04/13/19 04/13/19 History prednisone 10 mg PO UD 04/13/19 04/13/19 History warfarin [Coumadin] 5 mg PO UD 04/13/19 04/13/19 History Allergies Allergy/AdvReac Type Severity Reaction Status Date / Time No Known Allergies Allergy Unverified 09/30/17 00:05 Past Med/Surg History Medical History Arthritis [employer] (current) use of anticoagulants Acute bronchitis (Acute) Acute respiratory failure with hypoxia Asthma CAD (coronary artery disease) COPD (chronic obstructive pulmonary disease) (Acute) Depressive disorder Diabetes mellitus Gastroesophageal reflux Hypercholesterolemia Hypertension Osteoarthritis Surgical History H/O breast biopsy History of cholecystectomy History of mitral valve replacement with mechanical valve Social History Preferred Language: Amharic Communication Ability: Effective Personal Fitness Trainer Required: No Beliefs That Will Affect Care: None marital status: Current Living Situation: Family Feels Safe at Home: Yes Safety Concerns: Feels Safe At This Time Smoking Status: Former smoker Hx Alcohol Use: No Hx Substance Use: No Review of Systems See HPI for pertinent positives & negatives. and A total of 10 systems reviewed and were otherwise negative Physical Exam Vital Signs Vital Signs - 24 hr 04/13/19 16:59 04/13/19 17:49 04/13/19 18:47 Temperature 37.1 C Temperature Source Oral Sepsis Recent Fever Within 48 Hours No Sepsis Action Taken by Nursing No Action Required Pulse Rate 111 H Pulse Rate [Right Finger] 95 H Pulse Rhythm Regular Pulse Rhythm [Right Finger] Pulse Strength Normal Pulse Strength [Right Finger] Respiratory Rate 18 18 Respiratory Effort / Characteristics Non-Labored Non-Labored Spontaneous Respiratory Depth Normal Respiratory Pattern Blood Pressure 106/64 Blood Pressure [Right Arm] Blood Pressure Mean 78 Blood Pressure Mean [Right Arm] Blood Pressure Position Sitting Blood Pressure Position [Right Arm] Pulse Oximetry 91 92 92 Oxygen Delivery Method Room Air Room Air Room Air 04/13/19 19:00 04/13/19 19:31 Temperature Temperature Source Sepsis Recent Fever Within 48 Hours Sepsis Action Taken by Nursing Pulse Rate Pulse Rate [Right Finger] 95 H 89 Pulse Rhythm Pulse Rhythm [Right Finger] Regular Pulse Strength Pulse Strength [Right Finger] Normal Respiratory Rate 20 16 Respiratory Effort / Characteristics Non-Labored Respiratory Depth Normal Normal Respiratory Pattern Regular Regular Blood Pressure Blood Pressure [Right Arm] 99/63 L 109/66 Blood Pressure Mean Blood Pressure Mean [Right Arm] 75 80 Blood Pressure Position Blood Pressure Position [Right Arm] Lying Lying Pulse Oximetry 92 91 Oxygen Delivery Method Room Air Room Air GENERAL: Patient is in no acute distress. HEENT: No acute trauma, normocephalic atraumatic, mucous membranes moist, no nasal congestion, no scleral icterus. No throat erythema or exudate. NECK: No stridor, no adenopathy, no meningismus, trachea is midline. LUNGS: Diminished breath sounds especially on the right with a few crackles towards the base on the right. HEART: Regular rhythm, subtle systolic murmur, metallic click heard. ABDOMEN: Soft, nontender, bowel sounds positive, no hernias, no peritonitis. EXTREMITIES: No cyanosis or edema, full range of motion of all the joints without pain or difficulty, no signs for acute trauma. NEUROLOGIC: Oriented x 3, no acute motor or sensory deficits, no focal weakness. SKIN: No rash, no jaundice, no diaphoresis. Course 1723: The patient was evaluated in room A12B, and a complete history and physic al examination were performed. 1850: I reviewed the patient's case with Awilda Izquierdo PA-C. Dr. Krishnan - Awilda Carrillo will evaluate the patient for further management. 1955: I updated the patient on her results at this time. Consultations Consultation #1: I reviewed the patient's case with Awilda Izquierdo PA-C. Dr. Krishnan - Awilda Carrillo will evaluate the patient for further management. Time: 18:51 Administered Medications Hydrocodone Bitart/Acetaminophen ([place] 5/325) 1 tab PO BID PRN PRN Reason: Pain Stop: 04/27/19 21:32 Last Admin: 04/13/19 22:17 Dose: 1 tab Documented by: [id number] Albuterol (Duoneb) 3 ml NEB Q4R GENA Stop: 05/13/19 22:59 Last Admin: 04/13/19 22:35 Dose: 3 ml Documented by: [id number] Atorvastatin Calcium (Lipitor) 80 mg PO HS GENA Stop: 05/13/19 21:32 Last Admin: 04/13/19 22:18 Dose: 80 mg Documented by: [id number] Cyclobenzaprine HCl (Flexeril) 5 mg PO TID PRN PRN Reason: Muscle Spasm Stop: 05/13/19 21:32 Last Admin: 04/13/19 22:18 Dose: 5 mg Documented by: [id number] Duloxetine HCl (Cymbalta) 60 mg PO BID GENA Stop: 05/13/19 21:32 Last Admin: 04/13/19 22:18 Dose: 60 mg Documented by: [id number] Fluticasone Propionate (Flonase) 1 sprays NA BID GENA Stop: 05/13/19 21:32 Last Admin: 04/13/19 22:19 Dose: 1 sprays Documented by: [id number] Lactated Ringer's (Lr) 1,000 mls @ 125 mls/hr IV .Q8H GENA Stop: 05/13/19 21:32 Last Admin: 04/13/19 21:53 Dose: 125 mls/hr Documented by: [id number] Methylprednisolone 40 mg/ (Syringe) 0.64 mls @ 1.5 mls/min IV Q8H GENA Stop: 05/13/19 21:59 Last Admin: 04/13/19 22:19 Dose: 1.5 mls/min Documented by: [id number] Insulin Aspart (Novolog Flexpen) 0 units SC ACHS GENA Stop: 05/13/19 21:32 Last Admin: 04/13/19 22:22 Dose: 1 units Documented by: [id number] Cosigned by: [id number] Ioversol (Optiray 320 100ml) 89 ml IV ONCE PRN PRN Reason: Interaction Checking Stop: 04/17/19 19:24 Last Admin: 04/13/19 19:25 Dose: 89 ml Documented by: [id number] Lorazepam (Ativan) 0.5 mg PO BID PRN PRN Reason: Anxiety Stop: 05/13/19 21:32 Last Admin: 04/13/19 22:19 Dose: 0.5 mg Documented by: [id number] Miscellaneous (Order Awaiting Action) 1 ea N/A QS GENA Stop: 05/14/19 00:00 Last Admin: 04/13/19 23:08 Dose: Not Given Documented by: [id number] Nortriptyline HCl (Pamelor) 50 mg PO HS GENA Stop: 05/13/19 21:32 Last Admin: 04/13/19 22:19 Dose: 50 mg Documented by: [id number] Discontinued Medications Albuterol (Duoneb) 3 ml INH NOW STA Stop: 04/13/19 17:29 Last Admin: 04/13/19 17:49 Dose: 3 ml Documented by: [id number] Sodium Chloride (Nss 1000ml) 500 mls @ 999 mls/hr IV .Q31M ONE Stop: 04/13/19 18:04 Last Infusion: 04/13/19 20:03 Dose: 0 mls/hr Documented by: [id number] Admin: 04/13/19 18:17 Dose: 999 mls/hr Documented by: [id number] Acetaminophen (Ofirmev) 1,000 mg in 100 mls @ 400 mls/hr IV NOW STA Stop: 04/13/19 17:48 Last Infusion: 04/13/19 18:49 Dose: 0 mls/hr Documented by: [id number] Admin: 04/13/19 18:17 Dose: 400 mls/hr Documented by: [id number] Piperacillin Sod/Tazobactam Sod (Zosyn) 4.5 gm in 120 mls @ 240 mls/hr IV NOW ONE Stop: 04/13/19 18:24 Last Infusion: 04/13/19 20:03 Dose: 0 mls/hr Documented by: [id number] Admin: 04/13/19 18:17 Dose: 240 mls/hr Documented by: [id number] Magnesium Sulfate/Dextrose (Magnesium Sulfate / D5w) 1 gm in 100 mls @ 100 mls/ hr IV ONE ONE Stop: 04/13/19 19:46 Last Infusion: 04/13/19 21:14 Dose: 0 mls/hr Documented by: [id number] Admin: 04/13/19 20:12 Dose: 100 mls/hr Documented by: [id number] Magnesium Sulfate/Dextrose (Magnesium Sulfate / D5w) 1 gm in 100 mls @ 100 mls/hr IV ONE ONE Stop: 04/13/19 22:32 Last Infusion: 04/13/19 23:20 Dose: 0 mls/hr Documented by: [id number] Admin: 04/13/19 22:20 Dose: 100 mls/hr Documented by: [id number] Medical Decision Making Differential Diagnosis Differential diagnosis includes: bronchitis, pneumonia, fail of outpatient treatment, COPD exacerbation, coagulopathy, high INR, anemia, cardiac ischemia, CHF, intracranial bleeding. Medical Records Attestation: I reviewed the patient's medical records. Home Medications Current Medication List: was personally reviewed by fl Laboratory Data Attestation: I reviewed the patient's lab results. Result diagrams: 04/13/19 18:10 04/13/19 18:10 Lab Results 04/13/19 04/13/19 04/13/19 Range/Units 18:10 18:10 18:10 WBC 7.07 (4.8-10.8) K/uL RBC 4.15 L (4.2-5.4) M/uL Hgb 11.4 L (12.0-16.0) g/dL Hct 35.5 L (37-47) % MCV 85.5 (80-100) fL MCH 27.5 (25-34) pg MCHC 32.1 (32-36) g/dL RDW Std Deviation 51.9 H (36.4-46.3) fL RDW Coeff of Dara 16.3 H (11.5-14.5) % Plt Count 204 (130-400) K/uL MPV 9.5 (7.4-10.4) fL Immature Gran % (Auto) 0.7 % Neut % (Auto) 76.0 % Lymph % (Auto) 13.7 % [place] % (Auto) 9.5 % Eos % (Auto) 0.0 % Baso % (Auto) 0.1 % Immature Gran # (Auto) 0.05 H (0.00-0.02) K/uL Neut # (Auto) 5.37 (1.4-6.5) K/uL Lymph # (Auto) 0.97 L (1.2-3.4) K/uL [place] # (Auto) 0.67 H (0.11-0.59) K/uL Eos # (Auto) 0.00 (0-0.5) K/uL Baso # (Auto) 0.01 (0-0.2) K/uL PT 32.5 H (9.0-12.0) Seconds INR 3.5 H (0.9-1.1) APTT 63.7 H* (21.0-31.0) Seconds PTT Ratio 2.4 Sodium 138 (136-145) mmol/L Potassium 3.8 (3.5-5.1) mmol/L Chloride 103 (98-107) mmol/L Carbon Dioxide 26 (21-32) mmol/L Anion Gap 8.0 (3-11) BUN 14 (7-18) mg/dl Creatinine 0.81 (0.6-1.2) mg/dl Est Cr Clr Drug Dosing 81.8 ml/min Est GFR ( Amer) 94.8 Est GFR (Non-Af Amer) 81.8 BUN/Creatinine Ratio 17.1 (10-20) Glucose 149 H (70-99) mg/dl Lactate (0.4-2.0) mmol/L Calcium 8.0 L (8.5-10.1) mg/dl Magnesium 1.5 L (1.8-2.4) mg/dl Total Bilirubin 0.3 (0.2-1) mg/dl AST 39 H (15-37) U/L ALT 27 (12-78) U/L Alkaline Phosphatase 95 (45-117) U/L Troponin I < 0.015 (0-0.045) ng/ml Total Protein 6.2 L (6.4-8.2) gm/dl Albumin 2.9 L (3.4-5.0) gm/dl Globulin 3.3 (2.5-4.0) gm/dl Albumin/Globulin Ratio 0.9 (0.9-2) 04/13/19 Range/Units 18:10 WBC (4.8-10.8) K/uL RBC (4.2-5.4) M/uL Hgb (12.0-16.0) g/dL Hct (37-47) % MCV (80-100) fL MCH (25-34) pg MCHC (32-36) g/dL RDW Std Deviation (36.4-46.3) fL RDW Coeff of Dara (11.5-14.5) % Plt Count (130-400) K/uL MPV (7.4-10.4) fL Immature Gran % (Auto) % Neut % (Auto) % Lymph % (Auto) % [place] % (Auto) % Eos % (Auto) % Baso % (Auto) % Immature Gran # (Auto) (0.00-0.02) K/uL Neut # (Auto) (1.4-6.5) K/uL Lymph # (Auto) (1.2-3.4) K/uL [place] # (Auto) (0.11-0.59) K/uL Eos # (Auto) (0-0.5) K/uL Baso # (Auto) (0-0.2) K/uL PT (9.0-12.0) Seconds INR (0.9-1.1) APTT (21.0-31.0) Seconds PTT Ratio Sodium (136-145) mmol/L Potassium (3.5-5.1) mmol/L Chloride (98-107) mmol/L Carbon Dioxide (21-32) mmol/L Anion Gap (3-11) BUN (7-18) mg/dl Creatinine (0.6-1.2) mg/dl Est Cr Clr Drug Dosing ml/min Est GFR ( Amer) Est GFR (Non-Af Amer) BUN/Creatinine Ratio (10-20) Glucose (70-99) mg/dl Lactate 2.1 H* (0.4-2.0) mmol/L Calcium (8.5-10.1) mg/dl Magnesium (1.8-2.4) mg/dl Total Bilirubin (0.2-1) mg/dl AST (15-37) U/L ALT (12-78) U/L Alkaline Phosphatase (45-117) U/L Troponin I (0-0.045) ng/ml Total Protein (6.4-8.2) gm/dl Albumin (3.4-5.0) gm/dl Globulin (2.5-4.0) gm/dl Albumin/Globulin Ratio (0.9-2) Imaging Data Radiologist's Impression: Radiology results as stated below per my review and the radiologist's interpretation: CT OF THE HEAD WITHOUT CONTRAST CLINICAL HISTORY: coumadin use, headache COMPARISON STUDY: No previous studies for comparison. CT DOSE: 446.99 mGycm TECHNIQUE: Helical axial images of the head were obtained without IV contrast. Automated exposure control was utilized for the study. A dose lowering technique was utilized adhering to the principles of ALARA. FINDINGS: No acute intracranial hemorrhage, midline shift or mass effect is present. The ventricular system is unremarkable. The basilar cisterns are louis nt. No extra-axial collections are present. There are no findings to suggest acute dural sinus thrombosis or acute territorial infarct. No significant calvarial abnormalities are present. Visualized portions of the sinuses and mastoid air cells are clear. IMPRESSION: No acute intracranial findings. Electronically signed by: Murali Nguyen M.D. 04/13/2019 6:38 PM XR chest 1V portable CLINICAL HISTORY: Shortness of breath. COMPARISON STUDY: Chest radiograph November 21, 2017. Chest CT October 05, 2017. FINDINGS: There are median sternotomy wires, a prosthetic mitral valve and an atrial appendage occlusion device. No pneumothorax is noted. There is a possible small right pleural effusion. There is no evidence for pulmonary edema. Cardiomediastinal silhouette is stable. Note is made of a 3.3 cm rounded right lower lung mass-like opacity with adjacent airspace opacity. Left lung is clear with exception of basilar atelectasis. IMPRESSION: 3.3 cm round right lower lung mass-like opacity with adjacent airspace opacity. Pneumonia is favored however an underlying pulmonary mass cannot be excluded and a chest CT with contrast is recommended. Electronically signed by: Murali Nguyen M.D. 04/13/2019 6:[address] OF THE CHEST WITH IV CONTRAST CLINICAL HISTORY: Possible mass versus pneumonia. Respiratory difficulty. COMPARISON STUDY: Chest CT October 05, 2017. Chest radiograph performed ear lier today. TECHNIQUE: Following IV administration of 89 mL of Optiray-320, helical axial images of the chest were obtained. Sagittal and coronal reconstructions were viewed as well as maximal intensity projections on an independent 3-D workstation. Automated exposure control was utilized for the study. A dose lowering technique was utilized adhering to the principles of ALARA. CT DOSE: 533.38 mGy.cm FINDINGS: There are median sternotomy wires and a prosthetic mitral valve. The heart is mildly enlarged. There is no pericardial effusion. No pneumothorax or pleural effusion is noted. Moderately enlarged subcarinal lymph node measures 1.7 cm in short axis diameter. There are several mildly enlarged right hilar lymph nodes. Note is made of dense consolidation within the right lower lobe with a 6.2 x 4.5 cm subpleural focus of consolidation. There is extensive right lower lobe airspace opacity and minimal right middle lobe airspace opacity. There is minimal right upper lobe opacity. Mild to moderate emphysema is noted. No cavitation is present. Bony thorax and upper abdomen are unremarkable. Gallbladder is surgically absent. IMPRESSION: 1. Extensive right lower lobe airspace opacity with a 6.2 x 4.5 cm subpleural focus of consolidation. Pneumonia is favored. A neoplastic process could appear similar although is considered less likely. If the clinical picture is not sugg estive of pneumonia, Pulmonary consultation is recommended. A follow-up chest CT in one month to ensure resolution is recommended. 2. Subcarinal and right hilar lymphadenopathy which is likely reactive however should be assessed on subsequent CT to ensure resolution. 3. Emphysema. 4. Mild cardiomegaly. Electronically signed by: Murali Nguyen M.D. 04/13/2019 8:23 PM ECG Data Attestation: I personally reviewed and interpreted this ECG as follows: Indication: other (hemoptysis) Rate (beats per minute): 97 Rhythm: normal sinus Findings: + RBBB; no PVC and no ST elevation Blood Pressure Blood Pressure Findings: Normal blood pressure MDM Narrative There is no leukocytosis or worrisome anemia. INR is elevated at 3.5, this is consistent with her Coumadin use. No significant electrolyte abnormality or kidney failure. Lactic acid level is mildly elevated, this would be consistent with infection. Magnesium was low at 1.5. No concerning liver enzyme elevation. EKG shows a sinus rhythm, no acute ischemia. Cardiac enzyme testing x1 was not consistent with acute cardiac injury. Chest x-ray shows a right lower lung pneumonia. Chest CT confirms the findings of a right lower lung pneumonia. There was no obvious mass. Brain CT showed no acute bleed or mass-effect. Patient received a DuoNeb, she was given IV saline and IV Zosyn. She received IV magnesium. She received IV Tylenol. Patient presents with hemoptysis, some shortness of breath and sweats. She is on Levaquin and prednisone already as an outpatient. Work-up here does suggest a right lung pneumonia. Hospitalization is warranted. She has failed outpatient therapy. I spoke to the patient and case management. The on-call hospitalist was consulted. Impression & Plan Pneumonia, Failure of outpatient treatment, COPD exacerbation, Hemoptysis, Hypomagnesemia Discharge Plan Visit Data *Final* Discharge Date/Time: 04/13/19 21:00 Chief Complaint: Vomiting Stated Complaint: VOMITING WITH BLOOD,HEADACHE,BACK ACHE ED Provider: Deepak Bond Discharge Problem: Pneumonia, Failure of outpatient treatment, COPD exacerbation, Hemoptysis, Hypomagnesemia Patient Disposition: Admitted As Inpatient Discharge Instructions Interventions: ED Discharge Assessment Last Done: 04/13/19 21:00 Discharge Problem: Pneumonia Qualifiers: Pneumonia type: due to unspecified organism Laterality: right Lung location: lower lobe of lung Qualified Code(s): J18.1 - Lobar pneumonia, unspecified organism The scribe's documentation has been prepared under my direction and personally reviewed by me in its entirety. I confirm that the note above accurately reflects all work, treatment, procedures, and medical decision making performed by me.
[2019-04-13] MEDS ORDERED: PIPERACILLIN/TAZOBACTAM 4.5 GM/120 ML BAG IV ONE (17:55)
--- NOTE | 2019-04-13 18:15 | XRay Report ---
XR chest 1V portable CLINICAL HISTORY: Shortness of breath. COMPARISON STUDY: Chest radiograph November 21, 2017. Chest CT October 05, 2017. FINDINGS: There are median sternotomy wires, a prosthetic mitral valve and an atrial appendage occlus ion device. No pneumothorax is noted. There is a possible small right pleural effusion. There is no e vidence for pulmonary edema. Cardiomediastinal silhouette is stable. Note is made of a 3.3 cm rounded right lower lung mass-like opacity with adjacent airspace opacity. Left lung is clear with exception of basilar atelectasis. IMPRESSION: 3.3 cm round right lower lung mass-like opacity with adjacent airspace opacity. Pneumoni a is favored however an underlying pulmonary mass cannot be excluded and a chest CT with contrast is recommended. Electronically signed by: Murali Nguyen M.D. 04/13/2019 6:14 PM
[2019-04-13 18:22] LABS: Basophils # (auto) 0.01 K/uL (0-0.2); Basophils % (auto) 0.1 %; Hematocrit (blood only) 35.5 % (37-47); Hemoglobin 11.4 g/dL (12.0-16.0); Immature Granulocytes # (auto) 0.05 K/uL (0.00-0.02); Immature Granulocytes % (auto) 0.7 %; Lymphocytes # (auto) 0.97 K/uL (1.2-3.4); Lymphocytes % (auto) 13.7 %; Mean Corpuscular Hemoglobin 27.5 pg (25-34); Mean Corpuscular Hgb Conc 32.1 g/dL (32-36); Mean Corpuscular Volume 85.5 fL (80-100); Mean Platelet Volume 9.5 fL (7.4-10.4); Monocytes # (auto) 0.67 K/uL (0.11-0.59); Monocytes % (auto) 9.5 %; Neutrophils # (auto) 5.37 K/uL (1.4-6.5); Platelet Count 204 K/uL (130-400); RDW Coefficient of Variation 16.3 % (11.5-14.5); RDW Standard Deviation 51.9 fL (36.4-46.3); Red Blood Count 4.15 M/uL (4.2-5.4); White Blood Count 7.07 K/uL (4.8-10.8)
[2019-04-13 18:38] LABS: Alanine Aminotransferase 27 U/L (12-78); Albumin Level 2.9 gm/dl (3.4-5.0); Aspartate Aminotransferase 39 U/L (15-37); BUN Creatinine Ratio 17.1 (10-20); Blood Urea Nitrogen 14 mg/dl (7-18); Carbon Dioxide 26 mmol/L (21-32); Chloride 103 mmol/L (98-107); Creatinine Clr Calc Pharmacy 81.8 ml/min; Est GFR (African American) 94.8; Est GFR (Non-African American) 81.8; Glucose 149 mg/dl (70-99); Magnesium 1.5 mg/dl (1.8-2.4); Potassium 3.8 mmol/L (3.5-5.1); Sodium 138 mmol/L (136-145)
--- NOTE | 2019-04-13 18:39 | CT Scan Report ---
CT OF THE HEAD WITHOUT CONTRAST CLINICAL HISTORY: coumadin use, headache COMPARISON STUDY: No previous studies for comparison. CT DOSE: 446.99 mGycm TECHNIQUE: Helical axial images of the head were obtained without IV contrast. Automated exposure con trol was utilized for the study. A dose lowering technique was utilized adhering to the principles o f ALARA. FINDINGS: No acute intracranial hemorrhage, midline shift or mass effect is present. The ventricular system is unremarkable. The basilar cisterns are patent. No extra-axial collections are present. Ther e are no findings to suggest acute dural sinus thrombosis or acute territorial infarct. No significan t calvarial abnormalities are present. Visualized portions of the sinuses and mastoid air cells are c lear. IMPRESSION: No acute intracranial findings. Electronically signed by: Murali Nguyen M.D. 04/13/2019 6:38 PM
[2019-04-13 18:42] LABS: INR 3.5 (0.9-1.1); Partial Thromboplastin Ratio 2.4; Prothrombin Time 32.5 Seconds (9.0-12.0)
[2019-04-13 18:43] LABS: Albumin Globulin Ratio 0.9 (0.9-2); Alkaline Phosphatase 95 U/L (45-117); Bilirubin,Total 0.3 mg/dl (0.2-1); Globulin 3.3 gm/dl (2.5-4.0); Total Protein 6.2 gm/dl (6.4-8.2); Troponin I < 0.015 ng/ml (0-0.045)
[2019-04-13] MEDS ORDERED: MAGNESIUM SULFATE / D5W 1 GM/100 ML BAG IV ONE ×2 (18:47→21:33)
[2019-04-13 18:53] LABS: Partial Thromboplastin Time 63.7 Seconds (21.0-31.0)
[2019-04-13] MEDS ORDERED: IOVERSOL 100ml IV PRN (19:25)
--- NOTE | 2019-04-13 20:13 | History & Physical Report ---
Date of Service April 13, 2019 Assessment & Plan (1) Pneumonia: 54-year-old female with history of COPD, mechanical mitral valve since 2010, hyperlipidemia, CAD, hypertension, abdominal aortic atherosclerosis, prediabetes, anxiety, allergic rhinitis, GERD, depression presents with productive bloody cough which started 7 days ago. Pneumonia versus possible lung lesion and COPD exacerbation History of extensive tobacco smoke 30 years 1 to 2 pack/day Afebrile, no WBC elevation Chest x-ray concerning for 3.3 cm right lower lobe masslike opacity with adjacent airspace opacity CT chest pending Lactate 2.1 Blood culture x2 pending Started on Solu-Medrol 40 mg q. 8 scheduled, Zosyn, DuoNeb every 4 H Continue home trilogy inhaler Patient chronically on 3 L O2 at night Pulmonology consulted for possible bronchoscopy/procedure, n.p.o. after midnight CAD/hypertension/mitral valve replacement with mechanical valve status post balloon mitral valvuloplasty in 2010 Continue home aspirin, Lasix, potassium chloride, warfarin, atorvastatin Prediabetes BSG checks per unit protocol and sliding scale insulin Anxiety/depression Continue home duloxetine, nortriptyline and Ativan GERD Continue home omeprazole Arthritis/chronic back pain Continue home [place] and cyclobenzaprine DVT prophylaxis: Warfarin Code: Full per discussion with patient and daughter Disposition: MedSurg telemetry (2) Arthritis: (3) COPD exacerbation: (4) Hemoptysis: (5) retirement (current) use of anticoagulants: (6) CAD (coronary artery disease): (7) Depressive disorder: (8) Diabetes mellitus: (9) Gastroesophageal reflux: (10) History of mitral valve replacement with mechanical valve: (11) Hypercholesterolemia: History of Present Illness Chief Complaint: Productive bloody cough Primary Care Provider: Garth Vasquez MD 54-year-old female with history of COPD, mechanical mitral valve since 2010, hyperlipidemia, CAD, hypertension, abdominal aortic atherosclerosis, prediabetes, anxiety, allergic rhinitis, GERD, depression presents with productive bloody cough which started 7 days ago. Reports developing fever and productive cough 7 days ago but cough became bloody yesterday. Associated with diaphoresis, shortness of breath, wheezing. Also complaining of chronic back pain and neck pain which is causing headache and some dizziness (now improved). Denies any chills, chest pain, nausea, vomiting, diarrhea, constipation, abdominal pain, melena, hematochezia, hematuria, dysuria. Ports emailing Dr. Sigala on 4 days ago and he prescribed her Levaquin and prednisone for possible bronchitis. Patient continues to require 3 L at night only and not so much during the day which is 1 L more than her baseline. of note patient noted to have left eye twitching which she says has been going on for about 4 years especially when she is anxious. Patient reports increased fatigue and about 10 pound weight loss in the last 4 months due to poor appetite. Patient quit tobacco use in 2010 but had smoked for about 30 years 1 to 2 pack/day. Denies any alcohol or recreational drug use Allergies Allergy/AdvReac Type Severity Reaction Status Date / Time No Known Allergies Allergy Unverified 09/30/17 00:05 Home Medications Home Medications Medication Instructions Recorded Confirmed Type albuterol sulfate 2 puff INHALATION Q4H PRN 04/13/19 04/13/19 History aspirin [Aspir-81] 81 mg PO DAILY 04/13/19 04/13/19 History atorvastatin [Lipitor] 80 mg PO HS 04/13/19 04/13/19 History cyclobenzaprine 5 mg PO TID PRN 04/13/19 04/13/19 History duloxetine [Cymbalta] 60 mg PO BID 04/13/19 04/13/19 History wfkjqvkxmhh-vuduuxoof-xjbbuudt 1 inh INHALATION QAM 04/13/19 04/13/19 History [Trelegy Ellipta] furosemide [Lasix] 40 mg PO QAM 04/13/19 04/13/19 History hydrocodone-acetaminophen [Lorcet 1 tab PO BID PRN 04/13/19 04/13/19 History (hydrocodone)] ibuprofen 800 mg PO BID PRN 04/13/19 04/13/19 History ipratropium bromide 2.5 ml INHALATION QID PRN 04/13/19 04/13/19 History levofloxacin [Levaquin] 500 mg PO QAM 04/13/19 04/13/19 History lorazepam [Ativan] 0.5 mg PO BID PRN 04/13/19 04/13/19 History mometasone 2 spray INTRANASAL BID 04/13/19 04/13/19 History nortriptyline [Pamelor] 50 mg PO HS 04/13/19 04/13/19 History pantoprazole [Protonix] 40 mg PO QAM 04/13/19 04/13/19 History potassium chloride [Klor-Con M20] 20 meq PO QAM 04/13/19 04/13/19 History prednisone 10 mg PO UD 04/13/19 04/13/19 History warfarin [Coumadin] 5 mg PO UD 04/13/19 04/13/19 History Past Med/Surg History Medical History Arthritis retirement (current) use of anticoagulants Acute bronchitis (Acute) Acute respiratory failure with hypoxia Asthma CAD (coronary artery disease) COPD (chronic obstructive pulmonary disease) (Acute) Depressive disorder Diabetes mellitus Gastroesophageal reflux Hypercholesterolemia Hypertension Osteoarthritis Surgical History H/O breast biopsy History of cholecystectomy History of mitral valve replacement with mechanical valve Social History Preferred Language: Bruneian marital status: Feels Safe at Home: Yes Smoking Status: Former smoker Review of Systems Review of Systems: As per HPI Physical Exam Physical Exam: General: In NAD HEENT: Very dry mucous membranes Neuro: A&O x 4, CN 2-12 intact, strength 5/5 bilateral upper and lower extremities Pulm: Diminished breath sounds throughout, right lower lobe crackles and occasional wheezing appreciated CV: RRR, no m/r/g Abdomen:+BS, no TTP in all quadrants, non-distended LE: no LE edema, no calf TTP Results & Data Vital Signs (Past 12 Hours) Vital Signs Temp Pulse Pulse Resp BP BP Pulse Ox 04/13/19 19:31 89 16 109/66 91 04/13/19 19:00 95 H 20 99/63 L 92 04/13/19 18:47 92 04/13/19 17:49 95 H 18 92 04/13/19 16:59 37.1 C 111 H 18 106/64 91 Laboratory Results Abnormal lab results 04/13/19 04/13/19 04/13/19 Range/Units 18:10 18:10 18:10 RBC 4.15 L (4.2-5.4) M/uL Hgb 11.4 L (12.0-16.0) g/dL Hct 35.5 L (37-47) % RDW Std Deviation 51.9 H (36.4-46.3) fL RDW Coeff of Dara 16.3 H (11.5-14.5) % Immature Gran # (Auto) 0.05 H (0.00-0.02) K/uL Lymph # (Auto) 0.97 L (1.2-3.4) K/uL [place] # (Auto) 0.67 H (0.11-0.59) K/uL PT 32.5 H (9.0-12.0) Seconds INR 3.5 H (0.9-1.1) APTT 63.7 H* (21.0-31.0) Seconds Glucose 149 H (70-99) mg/dl Lactate (0.4-2.0) mmol/L Calcium 8.0 L (8.5-10.1) mg/dl Magnesium 1.5 L (1.8-2.4) mg/dl AST 39 H (15-37) U/L Total Protein 6.2 L (6.4-8.2) gm/dl Albumin 2.9 L (3.4-5.0) gm/dl 04/13/19 Range/Units 18:10 RBC (4.2-5.4) M/uL Hgb (12.0-16.0) g/dL Hct (37-47) % RDW Std Deviation (36.4-46.3) fL RDW Coeff of Dara (11.5-14.5) % Immature Gran # (Auto) (0.00-0.02) K/uL Lymph # (Auto) (1.2-3.4) K/uL [place] # (Auto) (0.11-0.59) K/uL PT (9.0-12.0) Seconds INR (0.9-1.1) APTT (21.0-31.0) Seconds Glucose (70-99) mg/dl Lactate 2.1 H* (0.4-2.0) mmol/L Calcium (8.5-10.1) mg/dl Magnesium (1.8-2.4) mg/dl AST (15-37) U/L Total Protein (6.4-8.2) gm/dl Albumin (3.4-5.0) gm/dl Diagnostic Findings XR chest 1V portable CLINICAL HISTORY: Shortness of breath. COMPARISON STUDY: Chest radiograph November 21, 2017. Chest CT October 05, 2017. FINDINGS: There are median sternotomy wires, a prosthetic mitral valve and an atrial appendage occlusion device. No pneumothorax is noted. There is a possible small right pleural effusion. There is no evidence for pulmonary edema. Cardiomediastinal silhouette is stable. Note is made of a 3.3 cm rounded right lower lung mass-like opacity with adjacent airspace opacity. Left lung is clear with exception of basilar atelectasis. IMPRESSION: 3.3 cm round right lower lung mass-like opacity with adjacent airspace opacity. Pneumonia is favored however an underlying pulmonary mass c annot be excluded and a chest CT with contrast is recommended. CT OF THE HEAD WITHOUT CONTRAST CLINICAL HISTORY: coumadin use, headache COMPARISON STUDY: No previous studies for comparison. CT DOSE: 446.99 mGycm TECHNIQUE: Helical axial images of the head were obtained without IV contrast. Automated exposure control was utilized for the study. A dose lowering technique was utilized adhering to the principles of ALARA. FINDINGS: No acute intracranial hemorrhage, midline shift or mass effect is present. The ventricular system is unremarkable. The basilar cisterns are p atent. No extra-axial collections are present. There are no findings to suggest acute dural sinus thrombosis or acute territorial infarct. No significant calvarial abnormalities are present. Visualized portions of the sinuses and mastoid air cells are clear. IMPRESSION: No acute intracranial findings. Medications Administered Current Inpatient Medications Ioversol (Optiray 320 100ml) 89 ml IV ONCE PRN PRN Reason: Interaction Checking Stop: 04/17/19 19:24 Last Admin: 04/13/19 19:25 Dose: 89 ml Documented by: Code Status & VTE Plan Code Status Full VTE Prophylaxis Plan VTE Prophylaxis will be ordered: Yes Supervising Physician Co-Signing Physician Notes Attending addendum: I have physically seen this patient, have supervised the medical residents activities, and agree with the H&P unless as otherwise noted. Assessment and Plan: Pneumonia involving right lower lobe/COPD- CT of chest ordered to further assess. Zosyn 4.5 g IV every 8 hours. Duonebs every 4 hours while awake and every 2 hours when necessary. SoluMedrol 40 mg IV every 8 hours. Guaifenesin extended release 600 mg p.o. twice daily. Sputum Gram stain and culture. N.p.o. after midnight. Consult pulmonology. Follow INR closely while on IV antibiotics. Remaining orders and notations as noted. PG Care Time/CCT Total # of Minutes Spent Total Time Spent with Patient: Total time spent is greater than 50% in coordination of care (as documented) at patient's floor/unit and/or counseling patient: Resident Activity Tracking Resident Involvement: Resident Care Provided Care Provided: Adult Hospital Medicine (1) Pneumonia Laterality: right Lung location: lower lobe of lung Pneumonia type: due to unspecified organism Qualified Code(s): J18.1 - Lobar pneumonia, unspecified organism
--- NOTE | 2019-04-13 20:26 | CT Scan Report ---
CT OF THE CHEST WITH IV CONTRAST CLINICAL HISTORY: Possible mass versus pneumonia. Respiratory difficulty. COMPARISON STUDY: Chest CT October 05, 2017. Chest radiograph performed earlier today. TECHNIQUE: Following IV administration of 89 mL of Optiray-320, helical axial images of the chest we re obtained. Sagittal and coronal reconstructions were viewed as well as maximal intensity projectio ns on an independent 3-D workstation. Automated exposure control was utilized for the study. A dose lowering technique was utilized adhering to the principles of ALARA. CT DOSE: 533.38 mGy.cm FINDINGS: There are median sternotomy wires and a prosthetic mitral valve. The heart is mildly enlar ged. There is no pericardial effusion. No pneumothorax or pleural effusion is noted. Moderately enlar ged subcarinal lymph node measures 1.7 cm in short axis diameter. There are several mildly enlarged r ight hilar lymph nodes. Note is made of dense consolidation within the right lower lobe with a 6.2 x 4.5 cm subpleural focus of consolidation. There is extensive right lower lobe airspace opacity and mi nimal right middle lobe airspace opacity. There is minimal right upper lobe opacity. Mild to moderate emphysema is noted. No cavitation is present. Bony thorax and upper abdomen are unremarkable. Gallbl adder is surgically absent. IMPRESSION: 1. Extensive right lower lobe airspace opacity with a 6.2 x 4.5 cm subpleural focus of consolidation. Pneumonia is favored. A neoplastic process could appear similar although is considered less likely. If the clinical picture is not suggestive of pneumonia, Pulmonary consultation is recommended. A foll ow-up chest CT in one month to ensure resolution is recommended. 2. Subcarinal and right hilar lymphadenopathy which is likely reactive however should be assessed on subsequent CT to ensure resolution. 3. Emphysema. 4. Mild cardiomegaly. Electronically signed by: Murali Nguyen M.D. 04/13/2019 8:23 PM
[2019-04-13] MEDS ORDERED: PIPERACILL/TAZOBAC CONSULT ACTIVE PRN (21:33)
[2019-04-13] MEDS ORDERED: ACETAMINOPHEN 325 MG TAB PO PRN (21:33)
[2019-04-13] MEDS ORDERED: GLUCOSE 40% GEL 15 GM TUBE PO PRN (21:45)
[2019-04-13] MEDS ORDERED: CARBOHYDRATES FOR HYPOGLYCEMIA PO PRN (21:45)
[2019-04-13] MEDS ORDERED: DEXTROSE 50% 50 ML SYRINGE IV PRN (21:45)
[2019-04-13] MEDS ORDERED: GLUCOSE 10 TABS/TUBE PO PRN (21:45)
[2019-04-13] MEDS ORDERED: GLUCAGON FOR INJ 1 MG VIAL SQ PRN (21:45)
[2019-04-13] MEDS: LACTATED RINGER'S 1,000 ML IV SCH (21:53)
[2019-04-13] MEDS: HYDROCODONE/ACETAMOPHEN 5/325MG TAB PO PRN (22:17)
[2019-04-13] MEDS: CYCLOBENZAPRINE HCL 5 MG TAB PO PRN (22:18)
[2019-04-13] MEDS: ATORVASTATIN 40 MG TAB PO SCH (22:18)
[2019-04-13] MEDS: DULOXETINE HCL 60 MG CAP PO SCH (22:18)
[2019-04-13] MEDS: NORTRIPTYLINE HCL 25 MG CAP PO SCH (22:19)
[2019-04-13] MEDS: FLUTICASONE PROPIONATE NA SPR 16 GM BTL SCH (22:19)
[2019-04-13] MEDS: methylPREDNISolone 40 MG in SYRINGE 0 ML IV SCH (22:19)
[2019-04-13] MEDS: LORazepam 0.5 MG TAB PO PRN (22:19)
[2019-04-13] MEDS: INSULIN ASPART 100 UNITS/ML 3 ML PEN SC SCH (22:22)
[2019-04-13] MEDS: ALBUT/IPRATROP 3MG/0.5MG NEB 3 ML VIAL NEB SCH (22:35)
[2019-04-14] MEDS: PIPERACILLIN/TAZOBACTAM 3.375 GM in DEXTROSE 5% 100 ML IV SCH ×3 (01:45→17:55)
[2019-04-14] MEDS: ALBUT/IPRATROP 3MG/0.5MG NEB 3 ML VIAL NEB SCH ×6 (03:10→23:14)
[2019-04-14] MEDS: methylPREDNISolone 40 MG in SYRINGE 0 ML IV SCH ×3 (05:21→20:57)
[2019-04-14] MEDS: LACTATED RINGER'S 1,000 ML IV SCH ×3 (05:21→20:51)
[2019-04-14 06:28] LABS: Hematocrit (blood only) 34.1 % (37-47); Hemoglobin 10.9 g/dL (12.0-16.0); Mean Corpuscular Hemoglobin 27.4 pg (25-34); Mean Corpuscular Volume 85.7 fL (80-100); Mean Platelet Volume 9.1 fL (7.4-10.4); Platelet Count 196 K/uL (130-400); RDW Coefficient of Variation 16.6 % (11.5-14.5); RDW Standard Deviation 52.8 fL (36.4-46.3); Red Blood Count 3.98 M/uL (4.2-5.4); White Blood Count 6.12 K/uL (4.8-10.8)
[2019-04-14 06:59] LABS: Albumin Level 2.7 gm/dl (3.4-5.0); Calcium 7.8 mg/dl (8.5-10.1); Est GFR (African American) 111.1; Est GFR (Non-African American) 95.9; Magnesium 2.3 mg/dl (1.8-2.4); Potassium 3.6 mmol/L (3.5-5.1)
[2019-04-14 07:02] LABS: Albumin Globulin Ratio 0.9 (0.9-2); Basophils # (auto) 0.01 K/uL (0-0.2); Basophils % (auto) 0.2 %; Bilirubin,Total 0.3 mg/dl (0.2-1); Echinocytes 1+; Immature Granulocytes # (auto) 0.06 K/uL (0.00-0.02); Lymphocytes # (auto) 0.99 K/uL (1.2-3.4); Lymphocytes % (auto) 16.2 %; Monocytes # (auto) 0.47 K/uL (0.11-0.59); Monocytes % (auto) 7.7 %; Neutrophils # (auto) 4.59 K/uL (1.4-6.5); Neutrophils % (auto) 74.9 %; Total Protein 5.7 gm/dl (6.4-8.2)
[2019-04-14] MEDS: ASPIRIN 81 MG ECTAB PO SCH (08:07)
[2019-04-14] MEDS: FUROSEMIDE 40 MG TAB PO SCH (08:07)
[2019-04-14] MEDS: PANTOprazole 40 MG TAB PO SCH (08:07)
[2019-04-14] MEDS: CYCLOBENZAPRINE HCL 5 MG TAB PO PRN (08:07)
[2019-04-14] MEDS: FLUTICASONE PROPIONATE NA SPR 16 GM BTL SCH ×2 (08:07→20:53)
[2019-04-14] MEDS: DULOXETINE HCL 60 MG CAP PO SCH ×2 (08:07→20:53)
[2019-04-14] MEDS: POTASSIUM CHLORIDE 20 MEQ TABCR PO SCH (08:07)
[2019-04-14] MEDS: INSULIN ASPART 100 UNITS/ML 3 ML PEN SC SCH ×4 (08:13→20:54)
--- NOTE | 2019-04-14 09:40 | Pulmonary Consultation ---
Date of Consultation April 14, 2019 Assessment & Plan (1) Pneumonia: Impression: 54-year-old female with extensive history of tobacco abuse presenting with what clinically sounds like a pneumonia. She does have an abnormal CT scan with some adenopathy which may be reactive. I would favor t reating her with a course of antibiotics with close clinical surveillance to ensure the opacities resolve. She been made n.p.o. for possible bronchoscopy but again would hold off for now. She is okay to eat from my perspective. Recommendations: 1. Community acquired pneumonia: The patient is currently receiving Zosyn. This can likely be de-escalated to oral Ceftin 500 mg p.o. twice daily for 10 days as well as azithromycin 250 mg daily for [address] scan: The patient will require radiographic surveillance. I recommended that she complete the course of antibiotics and undergo a follow-up noncontrast CT scan of the chest in approximately 6 to 8 weeks. She is established with ZACHARY Sigala in the pulmonary clinic. She should follow-up with him. If the radiographic abnormalities including adenopathy do not show significant regression or resolution, consideration at that time for bronchoscopy may be appropriate. 3. COPD: Continue bronchodilators. Would taper steroids fairly rapidly or complete a 5-day burst as the patient does not appear significantly bronchospastic currently. 4. Hemoptysis: Suspect secondary to pneumonia. It appears to be significantly improving. Continued clinical follow-up is recommended. 5. The patient can likely be dismissed from the hospital within the next 24 hours provided she continues to respond favorably. Again she can follow-up with AZCHARY Sigala in the pulmonary clinic at discharge. Laterality: right Lung location: lower lobe of lung Pneumonia type: due to unspecified organism Qualified Code(s): J18.1 - Lobar pneumonia, unspecified organism (2) COPD exacerbation: (3) Hemoptysis: History of Present Illness Attending Physician: Dionne Perry MD History of Present Illness Asked by hospitalist service to evaluate this patient with known obstructive lung disease and an abnormal CT scan and hemoptysis. History is obtained from review of electronic medical record, discussion with the attending physician, and interviewed the patient at the bedside. Patient is a 54-year-old female with a [id number] history of tobacco abuse who quit smoking in 2010. She is followed by ZACHARY Sigala in the outpatient setting for obstructive lung disease. She had a relatively normal chest x-ray performed approximately 4 months ago. She states that 1 week prior to admission she developed the acute onset of feeling febrile as well as experiencing some night sweats. She suffered with the symptoms for about 3 days then contacted her maintenance and engineering manager who prescribed an outpatient antibiotic and prednisone. She started the antibiotic on Sunday but she cannot recall what the name of the antibiotic she took was. On Sunday she developed some scant blood-tinged sputum which prompted her coming to the emergency room. Her fevers and chills have essentially resolved. Her white count was normal. The blood-tinged sputum has been decreasing in intensity. She never experienced patrick hemoptysis. She recalls having pneumonia several years ago. She is currently receiving Zosyn. Cultures have been negative to date. Her appetite has been good. She denies any unintentional weight loss. No chest pain or lower extremity edema. Patient's remaining 12 point review of systems was negative except as noted above. Past medical and past surgical history reviewed in the EMR. Allergies Allergy/AdvReac Type Severity Reaction Status Date / Time No Known Allergies Allergy Unverified 09/30/17 00:05 Home Medications Home Medications Medication Instructions Recorded Confirmed Type albuterol sulfate 2 puff INHALATION Q4H PRN 04/13/19 04/13/19 History aspirin [Aspir-81] 81 mg PO DAILY 04/13/19 04/13/19 History atorvastatin [Lipitor] 80 mg PO HS 04/13/19 04/13/19 History cyclobenzaprine 5 mg PO TID PRN 04/13/19 04/13/19 History duloxetine [Cymbalta] 60 mg PO BID 04/13/19 04/13/19 History arcyulnsncz-mowhgcopu-ygmclxip 1 inh INHALATION QAM 04/13/19 04/13/19 History [Trelegy Ellipta] furosemide [Lasix] 40 mg PO QAM 04/13/19 04/13/19 History hydrocodone-acetaminophen [Lorcet 1 tab PO BID PRN 04/13/19 04/13/19 History (hydrocodone)] ibuprofen 800 mg PO BID PRN 04/13/19 04/13/19 History ipratropium bromide 2.5 ml INHALATION QID PRN 04/13/19 04/13/19 History levofloxacin [Levaquin] 500 mg PO QAM 04/13/19 04/13/19 History lorazepam [Ativan] 0.5 mg PO BID PRN 04/13/19 04/13/19 History mometasone 2 spray INTRANASAL BID 04/13/19 04/13/19 History nortriptyline [Pamelor] 50 mg PO HS 04/13/19 04/13/19 History pantoprazole [Protonix] 40 mg PO QAM 04/13/19 04/13/19 History potassium chloride [Klor-Con M20] 20 meq PO QAM 04/13/19 04/13/19 History prednisone 10 mg PO UD 04/13/19 04/13/19 History warfarin [Coumadin] 5 mg PO UD 04/13/19 04/13/19 History Patient History Medical 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 Acute bronchitis (Acute) Acute respiratory failure with hypoxia Asthma CAD (coronary artery disease) COPD (chronic obstructive pulmonary disease) (Acute) Depressive disorder Diabetes mellitus Gastroesophageal reflux Hypercholesterolemia Hypertension Osteoarthritis Surgical History H/O breast biopsy History of cholecystectomy History of mitral valve replacement with mechanical valve Social History Preferred Language: Bulgarian Communication Ability: Effective Overlock Elastic Attacher Required: No Beliefs That Will Affect Care: None marital status: Current Living Situation: Family Feels Safe at Home: Yes Safety Concerns: Feels Safe At This Time Smoking Status: Former smoker Hx Alcohol Use: No Hx Substance Use: No Review of Systems Review of Systems: 12 point review of systems completed with patient and is negative except as noted in the HPI. Physical Exam Constitutional: WD/WN, vitals as above + obese Neck: trachea midline, no thyromegaly Respiratory: Diffuse coarse crackles and some mid to late end expiratory wheezes bilaterally. Cardiovascular: RRR, no murmur, no edema Gastrointestinal (Abdomen): normal bowel sounds, soft, nontender, no hepatosplenomegaly Skin: no rashes, warm and dry Results & Data Vital Signs (Past 12 Hours) Vital Signs Temp Pulse Pulse Resp BP Pulse Ox 04/14/19 08:16 100 H 04/14/19 07:10 37.1 C 92 H 18 105/70 95 04/14/19 06:53 95 H 16 95 04/14/19 04:25 36.9 C 99 H 20 107/73 94 04/14/19 03:10 74 14 85 L 04/14/19 00:13 92 H 04/13/19 22:37 36.8 C 92 H 18 98/65 L 90 04/13/19 22:35 71 15 94 Laboratory Results 04/14/19 06:16 04/14/19 06:[address] of the chest independently reviewed. Chest x-rays were also reviewed and compared to prior films. CT OF THE CHEST WITH IV CONTRAST CLINICAL HISTORY: Possible mass versus pneumonia. Respiratory difficulty. COMPARISON STUDY: Chest CT October 05, 2017. Chest radiograph performed earlier today. TECHNIQUE: Following IV administration of 89 mL of Optiray-320, helical axial images of the chest were obtained. Sagittal and coronal reconstructions were viewed as well as maximal intensity projections on an independent 3-D workstation. Automated exposure control was utilized for the study. A dose lowering technique was utilized adhering to the principles of ALARA. CT DOSE: 533.38 mGy.cm FINDINGS: There are median sternotomy wires and a prosthetic mitral valve. The heart is mildly enlarged. There is no pericardial effusion. No pneumothorax or pleural effusion is noted. Moderately enlarged subcarinal lymph node measures 1.7 cm in short axis diameter. There are several mildly enlarged right hilar lymph nodes. Note is made of dense consolidation within the right lower lobe with a 6.2 x 4.5 cm subpleural focus of consolidation. There is extensive right lower lobe airspace opacity and minimal right middle lobe airspace opacity. There is minimal right upper lobe opacity. Mild to moderate emphysema is noted. No cavitation is present. Bony thorax and upper abdomen are unremarkable. Gallbladder is surgically absent. IMPRESSION: 1. Extensive right lower lobe airspace opacity with a 6.2 x 4.5 cm subpleural focus of consolidation. Pneumonia is favored. A neoplastic process could appear similar although is considered less likely. If the clinical picture is not suggestive of pneumonia, Pulmonary consultation is recommended. A follow-up chest CT in one month to ensure resolution is recommended. 2. Subcarinal and right hilar lymphadenopathy which is likely reactive however should be assessed on subsequent CT to ensure resolution. 3. Emphysema. 4. Mild cardiomegaly. Chest x-ray from 04/13/2019 was reviewed and compared to prior film from October 2018. There is a new right lower lobe airspace opacity which was not present on the film in October. No pleural effusion. PG Care Time/CCT Total # of Minutes Spent Total Time Spent with Patient: Total time spent is greater than 50% in coor dination of care (as documented) at patient's floor/unit and/or counseling patient:
--- NOTE | 2019-04-14 12:55 | Medical Student Progress Note ---
Date of Service April 14, 2019 Diann Wang is a 54-year-old female with a Hx pf COPD, mechanical mitral valve since 2010, CAD, HTN, GERD, and anxiety who presented to [facility] ED on April 13 with hemoptysis. She states that she developed a dry cough and fever 8 days ago, which progressed to a productive cough over the next few days. She also experienced worsening SOB, dyspnea, fatigue, SMITH, and chest pain secondary to the cough, but she denies any history of nausea or vomiting, abdominal pain, diarrhea, or generalized chest pain. On , she had a phone consult with her machine oiler, and she was prescribed prednisone and levofloxacin due to concerns of bronchitis. However, her symptoms continued to worsen over the weekend, and she presented to the ED shortly after developing hemoptysis. She describes the hemoptysis as small speckles of blood. In the ED, she was found to have an elevated blood lactate, but she was afebrile and without WBC elevation. A CXR showed evidence of a 3.3 cm right lower lung mass-like opacity and a possible small right pleural effusion. Although Kathleen has been diagnosed with right lower lobe lobar pneumonia, the radiologist concluded that a pulmonary mass could not be excluded. Therefore, a chest CT with contrast is recommended. She is also scheduled for a pulmonology consult for possible bronchoscopy. Kathleen is currently being administered methylprednisolone, piperacillin/tazobactam, and a DuoNeb every [address] of the head without contrast was also ordered to secondary to warfarin use and SMITH. The CT did not show evidence of any acute intracranial findings. Kathleen states that she has experienced 10 pounds of unintentional weight loss over the last few months. She attributes the weight loss to anorexia secondary to increased stress. She also admits to increased fatigue and poor sleep quality over this span. She states that she frequently wakes up in the middle of the night feeling short of breath, which she attributes to poor positioning of her oxygen mask. Additionally, she states that she has had to use oxygen during the day a few times over the past two weeks due to worsening dyspnea on exertion and at rest. Physical Exam Constitutional: well developed, well nourished and + ill appearing; no acute distress Respiratory: + labored breathing Auscultation: + diminished lung sounds, + crackles and + wheezes Cardiovascular: RRR, no murmur, no edema Palpation: normal PMI Vessels: no carotid bruit Extremities: no pedal edema and no edema Gastrointestinal (Abdomen): normal bowel sounds, soft, nontender, no hepatosplenomegaly Skin: no rashes, warm and dry Psychiatric: Orientation: alert and oriented x 3 Lymphatic: no cervical or axillary lymphadenopathy Results & Data Medications Administered Acetaminophen (Tylenol) 650 mg PO Q4H PRN PRN Reason: Pain or Fever Stop: 05/13/19 21:32 Last Admin: 04/14/19 06:41 Dose: 650 mg Documented by: [id number] Hydrocodone Bitart/Acetaminophen ([place] 5/325) 1 tab PO BID PRN PRN Reason: Pain Stop: 04/27/19 21:32 Last Admin: 04/13/19 22:17 Dose: 1 tab Documented by: [id number] Albuterol (Duoneb) 3 ml NEB Q4R [facility] Stop: 05/13/19 22:59 Last Admin: 04/14/19 11:09 Dose: 3 ml Documented by: [id number] Admin: 04/14/19 06:53 Dose: 3 ml Documented by: [id number] Admin: 04/14/19 03:10 Dose: 3 ml Documented by: [id number] Admin: 04/13/19 22:35 Dose: 3 ml Documented by: [id number] Aspirin (Ecotrin Ectab) 81 mg PO DAILY [facility] Stop: 05/14/19 08:59 Last Admin: 04/14/19 08:07 Dose: 81 mg Documented by: [id number] Atorvastatin Calcium (Lipitor) 80 mg PO HS [facility] Stop: 05/13/19 21:32 Last Admin: 04/13/19 22:18 Dose: 80 mg Documented by: [id number] Cyclobenzaprine HCl (Flexeril) 5 mg PO TID PRN PRN Reason: Muscle Spasm Stop: 05/13/19 21:32 Last Admin: 04/14/19 08:07 Dose: 5 mg Documented by: [id number] Admin: 04/13/19 22:18 Dose: 5 mg Documented by: [id number] Duloxetine HCl (Cymbalta) 60 mg PO BID [facility] Stop: 05/13/19 21:32 Last Admin: 04/14/19 08:07 Dose: 60 mg Documented by: [id number] Admin: 04/13/19 22:18 Dose: 60 mg Documented by: [id number] Fluticasone Propionate (Flonase) 1 sprays NA BID [facility] Stop: 05/13/19 21:32 Last Admin: 04/14/19 08:07 Dose: 1 sprays Documented by: [id number] Admin: 04/13/19 22:19 Dose: 1 sprays Documented by: [id number] Furosemide (Lasix) 40 mg PO QAM [facility] Stop: 05/14/19 08:59 Last Admin: 04/14/19 08:07 Dose: 40 mg Documented by: [id number] Lactated Ringer's (Lr) 1,000 mls @ 125 mls/hr IV .Q8H [facility] Stop: 05/13/19 21:32 Last Admin: 04/14/19 05:21 Dose: 125 mls/hr Documented by: [id number] Infusion: 04/14/19 05:21 Dose: 125 mls/hr Documented by: [id number] Admin: 04/13/19 21:53 Dose: 125 mls/hr Documented by: [id number] Methylprednisolone 40 mg/ (Syringe) 0.64 mls @ 1.5 mls/min IV Q8H [facility] Stop: 05/13/19 21:59 Last Admin: 04/14/19 05:21 Dose: 1.5 mls/min Documented by: [id number] Admin: 04/13/19 22:19 Dose: 1.5 mls/min Documented by: [id number] Piperacillin Sod/Tazobactam (Sod 3.375 gm/ Dextrose) 115 mls @ 28.75 mls/hr IV Q8H [facility]; Protocol Stop: 04/21/19 01:59 Last Admin: 04/14/19 10:33 Dose: 28.8 mls/hr Documented by: [id number] Infusion: 04/14/19 05:48 Dose: 0 mls/hr Documented by: [id number] Admin: 04/14/19 01:45 Dose: 28.8 mls/hr Documented by: [id number] Insulin Aspart (Novolog Flexpen) 0 units SC ACHS [facility] Stop: 05/13/19 21:32 Last Admin: 04/14/19 12:07 Dose: 12 units Documented by: [id number] Cosigned by: [id number] Admin: 04/14/19 08:13 Dose: 2 units Documented by: [id number] Cosigned by: [id number] Admin: 04/13/19 22:22 Dose: 1 units Documented by: [id number] Cosigned by: [id number] Ioversol (Optiray 320 100ml) 89 ml IV ONCE PRN PRN Reason: Interaction Checking Stop: 04/17/19 19:24 Last Admin: 04/13/19 19:25 Dose: 89 ml Documented by: [id number] Lorazepam (Ativan) 0.5 mg PO BID PRN PRN Reason: Anxiety Stop: 05/13/19 21:32 Last Admin: 04/13/19 22:19 Dose: 0.5 mg Documented by: [id number] Miscellaneous (Order Awaiting Action) 1 ea N/A QS [facility] Stop: 05/14/19 00:00 Last Admin: 04/14/19 08:05 Dose: Not Given Documented by: [id number] Admin: 04/13/19 23:08 Dose: Not Given Documented by: [id number] Nortriptyline HCl (Pamelor) 50 mg PO HS [facility] Stop: 05/13/19 21:32 Last Admin: 04/13/19 22:19 Dose: 50 mg Documented by: [id number] Pantoprazole Sodium (Protonix) 40 mg PO [facility] Stop: 05/14/19 08:59 Last Admin: 04/14/19 08:07 Dose: 40 mg Documented by: [id number] Potassium Chloride (Klor-Con M20) [facility] Stop: 05/14/19 08:59 Last Admin: 04/14/19 08:07 Dose: 20 meq Documented by: [id number]
--- NOTE | 2019-04-14 16:35 | Family Medicine Progress Note ---
Date of Service April 14, 2019 Assessment & Plan (1) Acute hypoxemic respiratory failure: 54 y/o F with h/o extensive tob use here with cough, shortness of breath, recent 20lb weight loss. She does have an abnormal CT scan with some adenopathy which may be reactive. I would favor treating her with a course of antibiotics with close clinical surveillance to ensure the opacities resolve. She been made n.p.o. for possible bronchoscopy but again would hold off for now. She is okay to eat from my perspective. Hypoxia - Needed O2 on admission. - Not on O2 during the day at home. Wean O2 as able. Right lobar pneumonia - Community acquired pneumonia - Started on zosyn in ED. - No fever, no wbc elevation. - Blood culture x2 pending. Will switch to ceftin 500 mg p.o. twice daily for 10 days as well as azithromycin 250 mg daily for 5 days. - Hemoptysis likely sec to pneumonia. improving. - Pul input appreciated. Abnormal CT scan: follow-up noncontrast CT scan of the chest in approximately 6 to 8 weeks. consideration for bronchoscopy if no improvement. COPD exacerbation: Continue bronchodilators. On solumedrol. Taper steroids fairly rapidly or complete a 5-day burst - not as bronchospastic currently. Continue home trelegy inhaler Recent Weight loss -Intentional. Follow. Nocturnal hypoxia Patient chronically on 3 L O2 at night CAD/hypertension/mitral valve replacement with mechanical valve status post balloon mitral valvuloplasty in 2010 Continue home aspirin, Lasix, potassium chloride, warfarin, atorvastatin Prediabetes BSG checks per unit protocol SSI Anxiety/depression Continue home duloxetine, nortriptyline and Ativan GERD Continue home omeprazole Arthritis/chronic back pain Continue home Reading and cyclobenzaprine DVT prophylaxis: Warfarin Code: Full per discussion with patient and daughter Disposition: MedSurg telemetry. Anticipate d/c home in am (2) Pneumonia: (3) COPD exacerbation: (4) Diabetes mellitus: (5) Hypertension: Subjective breathing better this morning but still feeling short of breath. no fever cough, phlegm less blood stained no chest pain, Physical Exam Constitutional: WD/WN, vitals as above Respiratory: no respiratory distress left lower crackles and wheeze Cardiovascular: RRR, no murmur, no edema Gastrointestinal (Abdomen): normal bowel sounds, soft, nontender, no hepatosplenomegaly Results & Data Vital Signs (Past 12 Hours) Vital Signs Temp Pulse Pulse Resp BP Pulse Ox 04/14/19 16:04 102 H 04/14/19 15:07 96 H 18 97 04/14/19 15:03 37.2 C 98 H 20 122/72 90 04/14/19 12:27 36.9 C 110 H 22 91/66 L 92 04/14/19 11:10 110 H 24 90 04/14/19 08:16 100 H 04/14/19 07:10 37.1 C 92 H 18 105/70 95 04/14/19 06:53 95 H 16 95 PG Care Time/CCT Total # of Minutes Spent Total Time Spent with Patient: Total time spent is greater than 50% in coordination of care (as documented) at patient's floor/unit and/or counseling patient: (1) Pneumonia Laterality: right Lung location: lower lobe of lung Pneumonia type: due to unspecified organism Qualified Code(s): J18.1 - Lobar pneumonia, unspecified organism
[2019-04-14] MEDS ORDERED: AZITHROMYCIN 250 MG TAB PO ONE (18:15)
[2019-04-14] MEDS: cefUROXime axetil 500 MG TAB PO SCH (20:52)
[2019-04-14] MEDS: ATORVASTATIN 40 MG TAB PO SCH (20:54)
[2019-04-14] MEDS: NORTRIPTYLINE HCL 25 MG CAP PO SCH (20:57)
[2019-04-14] MEDS: HYDROCODONE/ACETAMOPHEN 5/325MG TAB PO PRN (21:02)
[2019-04-14] MEDS: LORazepam 0.5 MG TAB PO PRN (22:10)
[2019-04-15] MEDS: ALBUT/IPRATROP 3MG/0.5MG NEB 3 ML VIAL NEB SCH ×4 (03:08→15:09)
[2019-04-15] MEDS: methylPREDNISolone 40 MG in SYRINGE 0 ML IV SCH ×2 (05:21→13:17)
[2019-04-15] MEDS: FUROSEMIDE 40 MG TAB PO SCH (08:19)
[2019-04-15] MEDS: INSULIN ASPART 100 UNITS/ML 3 ML PEN SC SCH ×3 (08:19→17:20)
[2019-04-15] MEDS: POTASSIUM CHLORIDE 20 MEQ TABCR PO SCH (08:20)
[2019-04-15] MEDS: FLUTICASONE PROPIONATE NA SPR 16 GM BTL SCH (08:20)
[2019-04-15] MEDS: ASPIRIN 81 MG ECTAB PO SCH (08:20)
[2019-04-15] MEDS: PANTOprazole 40 MG TAB PO SCH (08:20)
[2019-04-15] MEDS: DULOXETINE HCL 60 MG CAP PO SCH (08:20)
[2019-04-15] MEDS: cefUROXime axetil 500 MG TAB PO SCH (08:20)
--- NOTE | 2019-04-15 08:47 | Pulmonology Progress Note ---
Date of Service April 15, 2019 Assessment & Plan (1) Pneumonia: Impression: 54-year-old female with extensive history of tobacco abuse presenting with what clinically sounds like a pneumonia. She does have an abnormal CT scan with some adenopathy which may be reactive. I would favor treating her with a course of antibiotics with close clinical surveillance to ensure the opacities resolve. She been made n.p.o. for possible bronchoscopy but again would hold off for now. She is okay to eat from my perspective. Recommendations: 1. Community acquired pneumonia: Continue Ceftin 500 mg p.o. twice daily for 10 days as well as azithromycin 250 mg daily for [address] scan: The patient will require radiographic surveillance. I recommended that she complete the course of antibiotics and undergo a follow-up noncontrast CT scan of the chest in approximately 6 to 8 weeks. She is established with ZACHARY Sigala in the pulmonary clinic. She should follow-up with him. If the radiographic abnormalities including adenopathy do not show significant regression or resolution, consideration at that time for bronchoscopy may be appropriate. 3. COPD: Continue bronchodilators. Would taper steroids fairly rapidly or complete a 5-day burst as the patient does not appear significantly bronchospastic currently. 4. Hypoxemia: The patient is now on oxygen. Would assess need for submental oxygen prior to discharge. Suspect this is related to COPD and pneumonia. I doubt the patient will require long-term oxygen therapy. 4. Hemoptysis: Suspect secondary to pneumonia. It appears to be significantly improving. Continued clinical follow-up is recommended. 5. The patient can likely be dismissed from the hospital within the next 24 hours provided she continues to respond favorably. Again she can follow-up with ZACHARY Sigala in the pulmonary clinic at discharge. The patient appears appropriate for potential dismissal from the hospital. Will assess for need for supplemental oxygen prior to discharge. Close outpatient pulmonary follow-up as noted above. Laterality: right Lung location: lower lobe of lung Pneumonia type: due to unspecified organism Qualified Code(s): J18.1 - Lobar pneumonia, unspecified organism (2) COPD exacerbation: (3) Hemoptysis: Subjective Patient continues to improve. She feels better this morning. She is coughing and expectorating small amounts of yellow to green phlegm. Her hemoptysis has resolved. She denies any chest pain. She is tolerating regular diet. She does not report any fevers chills or night sweats. Her review of systems is unchanged from previous Physical Exam Constitutional: WD/WN, vitals as above + obese Neck: trachea midline, no thyromegaly Cardiovascular: RRR, no murmur, no edema Gastrointestinal (Abdomen): normal bowel sounds, soft, nontender, no hepatosplenomegaly Skin: no rashes, warm and dry Results & Data Vital Signs (Past 12 Hours) Vital Signs Temp Pulse Pulse Resp BP BP Pulse Ox 04/15/19 08:40 92 H 04/15/19 07:00 36.8 C 95 H 16 107/71 94 04/15/19 04:00 36.9 C 98 H 18 101/66 94 04/15/19 03:10 64 16 96 04/14/19 23:36 101/63 93 04/14/19 23:20 93 H 04/14/19 23:15 95 H 18 95 04/14/19 23:06 37 C 103 H 20 92/59 L 99/64 L 93 04/14/19 21:11 96 H 106/86 Laboratory Results 04/14/19 06:16 04/14/19 06:16 PG Care Time/CCT Total # of Minutes Spent Total Time Spent with Patient: Total time spent is greater than 50% in coordination of care (as documented) at patient's floor/unit and/or counseling patient:
[2019-04-15] MEDS ORDERED: guaiFENesin 600 MG TABCR PO SCH (09:00)
[2019-04-15] MEDS ORDERED: AZITHROMYCIN 250 MG TAB PO SCH (09:00)
--- NOTE | 2019-04-15 09:09 | Medical Student Progress Note ---
Date of Service April 15, 2019 Diann Wang is a 54 y/o F who presented to [facility] ED on on April 13 with the chief concern of hemoptysis. Clinical evaluation and a CXR resulted in the diagnosis of lobar pneumonia of the right lower lobe with concomitant COPD exacerbation. Kathleen states that she still experiences SOB but that her breathing has significantly improved since yesterday. She states that she continues to have a productive, non-bloody cough with yellow/brown sputum that is worse when laying flat. She also notes that her chest, shoulders, and ribs are sore secondary to coughing. She denies any abdominal discomfort, diarrhea, constipation, dysuria, fever, or chest pain, but she does admit to a SMITH and bilateral peripheral edema. She states that her appetite has remained steady compared to yesterday. Kathleen has discontinued IV methylprednisolone and IV antibiotics. She was administered oral prednisone, oral azithromycin (250 mg), and oral cefuroxime (500 mg) this morning. She was also administered 40 mg furosemide PO due to continued bilateral peripheral edema. Kathleen continues to have an elevated blood glucose of 192. She was administered 10 units of insulin aspart this morning. She was also administered 3 ml NEB Albuterol, 81 mg Aspirin, and 20 meq Potassium chloride this morning. Physical Exam Constitutional: WD/WN, vitals as above Respiratory: normal respiratory effort, normal percussion, + cough and symmetric chest movement; no respiratory distress, does not use accessory muscles, no tactile fremitus and no audible wheezes Auscultation: + crackles (mild, right lower lung field), + wheezes (bilateral lower lung ramsay) and + egophony (right lower lung field) Cardiovascular: RRR, no murmur, no edema Vessels: no carotid bruit Extremities: + edema (Bilateral, non-pitting) Gastrointestinal (Abdomen): normal bowel sounds, soft, nontender, no hepatosplenomegaly Skin: no rashes, warm and dry Results & Data Medications Administered Acetaminophen (Tylenol) 650 mg PO Q4H PRN PRN Reason: Pain or Fever Stop: 05/13/19 21:32 Last Admin: 04/14/19 06:41 Dose: 650 mg Documented by: [id number] Hydrocodone Bitart/Acetaminophen ([place] 5/325) 1 tab PO BID PRN PRN Reason: Pain Stop: 04/27/19 21:32 Last Admin: 04/14/19 21:02 Dose: 1 tab Documented by: [id number] Admin: 04/13/19 22:17 Dose: 1 tab Documented by: [id number] Albuterol (Duoneb) 3 ml NEB Q4R [facility] Stop: 05/13/19 22:59 Last Admin: 04/15/19 07:00 Dose: 3 ml Documented by: [id number] Admin: 04/15/19 03:08 Dose: 3 ml Documented by: [id number] Admin: 04/14/19 23:14 Dose: 3 ml Documented by: [id number] Admin: 04/14/19 19:10 Dose: 3 ml Documented by: [id number] Admin: 04/14/19 15:05 Dose: 3 ml Documented by: [id number] Admin: 04/14/19 11:09 Dose: 3 ml Documented by: [id number] Admin: 04/14/19 06:53 Dose: 3 ml Documented by: [id number] Admin: 04/14/19 03:10 Dose: 3 ml Documented by: [id number] Admin: 04/13/19 22:35 Dose: 3 ml Documented by: [id number] Aspirin (Ecotrin Ectab) 81 mg PO DAILY [facility] Stop: 05/14/19 08:59 Last Admin: 04/15/19 08:20 Dose: 81 mg Documented by: [id number] Admin: 04/14/19 08:07 Dose: 81 mg Documented by: [id number] Atorvastatin Calcium (Lipitor) 80 mg PO HS [facility] Stop: 05/13/19 21:32 Last Admin: 04/14/19 20:54 Dose: 80 mg Documented by: [id number] Admin: 04/13/19 22:18 Dose: 80 mg Documented by: [id number] Azithromycin (Zithromax) 250 mg PO QAM [facility]; Protocol Stop: 04/22/19 08:59 Last Admin: 04/15/19 08:20 Dose: 250 mg Documented by: [id number] Cefuroxime Axetil (Ceftin) 500 mg PO BID [facility]; Protocol Stop: 04/21/19 20:59 Last Admin: 04/15/19 08:20 Dose: 500 mg Documented by: [id number] Admin: 04/14/19 20:52 Dose: 500 mg Documented by: [id number] Cyclobenzaprine HCl (Flexeril) 5 mg PO TID PRN PRN Reason: Muscle Spasm Stop: 05/13/19 21:32 Last Admin: 04/14/19 08:07 Dose: 5 mg Documented by: [id number] Admin: 04/13/19 22:18 Dose: 5 mg Documented by: [id number] Duloxetine HCl (Cymbalta) 60 mg PO BID [facility] Stop: 05/13/19 21:32 Last Admin: 04/15/19 08:20 Dose: 60 mg Documented by: [id number] Admin: 04/14/19 20:53 Dose: 60 mg Documented by: [id number] Admin: 04/14/19 08:07 Dose: 60 mg Documented by: [id number] Admin: 04/13/19 22:18 Dose: 60 mg Documented by: [id number] Fluticasone Propionate (Flonase) 1 sprays NA BID [facility] Stop: 05/13/19 21:32 Last Admin: 04/15/19 08:20 Dose: 1 sprays Documented by: [id number] Admin: 04/14/19 20:53 Dose: 1 sprays Documented by: [id number] Admin: 04/14/19 08:07 Dose: 1 sprays Documented by: [id number] Admin: 04/13/19 22:19 Dose: 1 sprays Documented by: [id number] Furosemide (Lasix) 40 mg PO QAM [facility] Stop: 05/14/19 08:59 Last Admin: 04/15/19 08:19 Dose: 40 mg Documented by: [id number] Admin: 04/14/19 08:07 Dose: 40 mg Documented by: [id number] Guaifenesin (Mucinex) 1,200 mg PO Q12 [facility] Stop: 05/15/19 08:59 Last Admin: 04/15/19 08:19 Dose: 1,200 mg Documented by: [id number] Methylprednisolone 40 mg/ (Syringe) 0.64 mls @ 1.5 mls/min IV Q8H [facility] Stop: 05/13/19 21:59 Last Admin: 04/15/19 05:21 Dose: 1.5 mls/min Documented by: [id number] Admin: 04/14/19 20:57 Dose: 1.5 mls/min Documented by: [id number] Admin: 04/14/19 13:48 Dose: 1.5 mls/min Documented by: [id number] Admin: 04/14/19 05:21 Dose: 1.5 mls/min Documented by: [id number] Admin: 04/13/19 22:19 Dose: 1.5 mls/min Documented by: [id number] Insulin Aspart (Novolog Flexpen) 0 units SC ACHS [facility] Stop: 05/13/19 21:32 Last Admin: 04/15/19 08:19 Dose: 10 units Documented by: [id number] Cosigned by: [id number] Admin: 04/14/19 20:54 Dose: 1 units Documented by: [id number] Cosigned by: [id number] Admin: 04/14/19 17:17 Dose: 7 units Documented by: [id number] Cosigned by: [id number] Admin: 04/14/19 12:07 Dose: 12 units Documented by: [id number] Cosigned by: [id number] Admin: 04/14/19 08:13 Dose: 2 units Documented by: [id number] Cosigned by: [id number] Admin: 04/13/19 22:22 Dose: 1 units Documented by: [id number] Cosigned by: [id number] Ioversol (Optiray 320 100ml) 89 ml IV ONCE PRN PRN Reason: Interaction Checking Stop: 04/17/19 19:24 Last Admin: 04/13/19 19:25 Dose: 89 ml Documented by: [id number] Lorazepam (Ativan) 0.5 mg PO BID PRN PRN Reason: Anxiety Stop: 05/13/19 21:32 Last Admin: 04/14/19 22:10 Dose: 0.5 mg Documented by: [id number] Admin: 04/13/19 22:19 Dose: 0.5 mg Documented by: [id number] Miscellaneous (Order Awaiting Action) 1 ea N/A QS [facility] Stop: 05/14/19 00:00 Last Admin: 04/15/19 07:09 Dose: Not Given Documented by: [id number] Admin: 04/15/19 00:17 Dose: Not Given Documented by: [id number] Admin: 04/14/19 15:27 Dose: Not Given Documented by: [id number] Admin: 04/14/19 08:05 Dose: Not Given Documented by: [id number] Admin: 04/13/19 23:08 Dose: Not Given Documented by: [id number] Nortriptyline HCl (Pamelor) 50 mg PO HS [facility] Stop: 05/13/19 21:32 Last Admin: 04/14/19 20:57 Dose: 50 mg Documented by: [id number] Admin: 04/13/19 22:19 Dose: 50 mg Documented by: [id number] Pantoprazole Sodium (Protonix) 40 mg PO [facility] Stop: 05/14/19 08:59 Last Admin: 04/15/19 08:20 Dose: 40 mg Documented by: [id number] Admin: 04/14/19 08:07 Dose: 40 mg Documented by: [id number] Potassium Chloride (Klor-Con M20) 20 meq PO [facility] Stop: 05/14/19 08:59 Last Admin: 04/15/19 08:20 Dose: 20 meq Documented by: [id number] Admin: 04/14/19 08:07 Dose: 20 meq Documented by: [id number]
--- NOTE | 2019-04-15 16:11 | Discharge Summary ---
Date of Service April 15, 2019 Admission HPI Per Admitting Provider 54-year-old female with history of COPD, mechanical mitral valve since 2010, hyperlipidemia, CAD, hypertension, abdominal aortic atherosclerosis, prediabetes, anxiety, allergic rhinitis, GERD, depression presents with productive bloody cough which started 7 days ago. Reports developing fever and productive cough 7 days ago but cough became bloody yesterday. Associated with diaphoresis, shortness of breath, wheezing. Also complaining of chronic back pain and neck pain which is causing headache and some dizziness (now improved). Denies any chills, chest pain, nausea, vomiting, diarrhea, constipation, abdominal pain, melena, hematochezia, hematuria, dysuria. Ports emailing Dr. Sigala on 4 days ago and he prescribed her Levaquin and prednisone for possible bronchitis. Patient continues to require 3 L at night only and not so much during the day which is 1 L more than her baseline. of note patient noted to have left eye twitching which she says has been going on for about 4 years especially when she is anxious. Patient reports increased fatigue and about 10 pound weight loss in the last 4 months due to poor appetite. Patient quit tobacco use in 2010 but had smoked for about 30 years 1 to 2 pack/day. Denies any alcohol or recreational drug use Principal Diagnosis Acute respiratory failure secondary to Lobar pneumonia Discharge Exam Constitutional WD/WN, vitals as above Respiratory normal respiratory effort Overall decreased breath sounds. right lower lung crackles. Cardiovascular RRR, no murmur, no edema Gastrointestinal (Abdomen) normal bowel sounds, soft, nontender, no hepatosplenomegaly Discharge Data Allergies Allergy/AdvReac Type Severity Reaction Status Date / Time No Known Allergies Allergy Unverified 04/16/19 13:28 Consultations 04/13/19 18:56 ED Decision to Admit Stat 04/13/19 21:33 Consult Pulmonology Routine Ordered Studies 04/13/19 17:28 CT head/brain wo con Stat 04/13/19 18:54 CT chest w con Stat Hospital Course (1) Acute hypoxemic respiratory failure: 54 y/o F with h/o extensive tob use here with cough, shortness of breath, recent 20lb weight loss. She does have an abnormal CT scan with some adenopathy which may be reactive. I would favor treating her with a course of antibiotics with close clinical surveillance to ensure the opacities resolve. She been made n.p.o. for possible bronchoscopy but again would hold off for now. She is okay to eat from my perspective. Acute respiratory failure secondary to pneumonia. - Needed O2 on admission. - 2 step done on discharge - needing 2 L O2 with rest and 3L on ambulation. Home O2 arranged. Right lobar pneumonia - Community acquired pneumonia - Started on zosyn. - No fever, no wbc elevation through hospital stay. - Blood culture x2 negative. - Home on ceftin 500 mg p.o. twice daily for total 10 days as well as azithromycin 250 mg daily for 5 days. - Hemoptysis likely sec to pneumonia. resolved. - Seen by Pulmonology here. Outpatient f/u with pulmonary. Abnormal CT scan: follow-up noncontrast CT scan of the chest in approximately 6 to 8 weeks. consideration for bronchoscopy if no improvement. COPD exacerbation: Continued bronchodilators. Kept on solumedrol. Home on 5-day burst. Continue home trelegy inhaler Mechanical mitral valve Warfarin held on admission due to INR 3.6. INR on day of discharge 2.4. Received warfarin on day of discharge. Instructed to recheck INR in am and contact provider to dose adjustment. Recent Weight loss -Intentional. h/o Nocturnal hypoxia Patient chronically on 3 L O2 at night CAD/hypertension/mitral valve replacement with mechanical valve status post balloon mitral valvuloplasty in 2010 Continued home aspirin, Lasix, potassium chloride, warfarin, atorvastatin Prediabetes -stable Anxiety/depression Continued home duloxetine, nortriptyline and Ativan GERD Continued home omeprazole Arthritis/chronic back pain Continued home [place] and cyclobenzaprine (2) Pneumonia: (3) COPD exacerbation: (4) Diabetes mellitus: (5) Hypertension: Total Time Total Time Spent Total Time Spent (In Minutes): 40 min Discharge Plan Discharge Items Patient Disposition: Home - Self-Care Reason For Visit: PNEUMONIA Discharge Diagnosis: Community acquired pneumonia Hypoxia Discharge Goals: Decrease discomfort Activity: Resume your previous activity Non-emergency contact: Primary Care Provider and Inspector Boiler Call non-emergency contact if: you have any medication questions and your symptoms worsen Follow-up/Referrals: Garth Vasquez III, MD [Primary Care Provider] - 04/24/19 2:00 pm (Please, follow up at Dr. Vasquez's office with his associate, Vianney HARRIS, on April 24 at 2:00 pm. *If you need to change this appointment, call the office at [phone].) Diet: Carb Consistent or DM2 and Heart Healthy Addtl Provider Instructions: Follow up with family physician in one week Follow up with Pulmonology - Hair Sigala in one week Check PT/INR tomorrow morning - 04/16/19. Prescriptions: New azithromycin [Zithromax] 250 mg Tablet 250 mg PO QAM Qty: 3 RF: 0 cefuroxime axetil 500 mg Tablet 500 mg PO BID Qty: 8 RF: 0 prednisone 20 mg tablet 40 mg PO DAILY 5 Days Qty: 10 RF: 0 Continued furosemide [Lasix] 40 mg Tablet 40 mg PO QAM RF: 0 atorvastatin [Lipitor] 80 mg tablet 80 mg PO HS RF: 0 prednisone 10 mg tablet 10 mg PO UD RF: 0 ibuprofen 800 mg Tablet 800 mg PO BID PRN (Reason: Pain) RF: 0 hydrocodone-acetaminophen [Lorcet (hydrocodone)] 5-325 mg tablet 1 tab PO BID PRN (Reason: Pain) RF: 0 aspirin [Aspir-81] 81 mg Tablet,Delayed Release (Dr/Ec) 81 mg PO DAILY RF: 0 potassium chloride [Klor-Con M20] 20 mEq tablet,ER particles/crystals 20 meq PO QAM RF: 0 lorazepam [Ativan] 0.5 mg tablet 0.5 mg PO BID PRN (Reason: Anxiety) RF: 0 pantoprazole [Protonix] 40 mg tablet,delayed release (DR/EC) 40 mg PO QAM RF: 0 warfarin [Coumadin] 5 mg tablet 5 mg PO UD RF: 0 mometasone 50 mcg/actuation [place],Non-Aerosol 2 spray INTRANASAL BID RF: 0 albuterol sulfate 90 mcg/actuation Hfa Aerosol Inhaler 2 puff INHALATION Q4H PRN (Reason: Shortness Of Breath Or Wheezing) RF: 0 ipratropium bromide 0.02 % solution 2.5 ml inhalation QID PRN (Reason: Shortness Of Breath Or Wheezing) RF: 0 nortriptyline [Pamelor] 50 mg Capsule 50 mg PO HS RF: 0 cyclobenzaprine 5 mg tablet 5 mg PO TID PRN (Reason: Muscle Spasm) RF: 0 duloxetine [Cymbalta] 60 mg capsule,delayed release(DR/EC) 60 mg PO BID RF: 0 Trelegy Ellipta 100-62.5-25 mcg Blister With Device 1 inh INHALATION QAM RF: 0 Daliresp 500 mcg tablet RF: 0 Discontinued levofloxacin [Levaquin] 500 mg tablet 500 mg PO QAM RF: 0 Stand-Alone Forms: [facility] Discharge Orders: Discharge Order (Routine); Ordered 04/15/19 Ordered By: Dionne Perry Admission Data Admit Date/Time: 04/13/19 20:35 Attending Provider: Dionne Perry Admit Provider: Nikolas Krishnan Primary Care Provider: Garth Vasquez III Other Providers: Nikolas Krishnan ; Dean Joseph Service: Telemetry Medical Other Interventions: Discharge Summary Assessment (RN) Last Done: 04/15/19 16:11 DC Date/Time DO NOT enter until pt leaves facility: 04/15/19 17:56
[2019-04-15] MEDS: WARFARIN SOD 5 MG TAB PO ONE ×2 (17:14→17:44)
[2019-04-15 17:39] LABS: INR 2.4 (0.9-1.1); Prothrombin Time 23.1 Seconds (9.0-12.0)
== END 2019-04-15 17:56 | disposition home or self-care (01) | DRG 193 ==
LOC: ED 16:50 → SUATTDRO 20:35 → 2N 20:35